=== PATIENT | female | born 1930 | race African-American/Black ===

== ENCOUNTER 2016-06-24 22:54 | Inpatient (IN) | payer OTHER, MEDICARE ==
[~2016-06-24] VITALS: Ht 165.1 cm; Wt 82.9 kg
[~2016-06-24 22:54] MED LIST: APIX2.5 PO; CEPH500; DILTCD240 PO; HYDRA50 PO; LOSA100T PO; VITA-13 PO; VITA500C9 PO
[2016-06-24 22:57] VITALS: BP 110/58; PULSE 59; RESP 16; TEMP 97.9; O2SAT 95
[2016-06-25] VITALS (7 sets, daily range): BP systolic 120–134; BP diastolic 60–80; PULSE 58–66; RESP 12–18; TEMP 97.2–97.8; O2SAT 92–100
[2016-06-25] MEDS ORDERED: HYDR50TA15 PO (05:13)
[2016-06-25] MEDS ORDERED: LOSA100T PO (05:13)
[2016-06-25] MEDS ORDERED: DILT-48 PO (05:13)
[2016-06-25] MEDS ORDERED: DOXY1TAB6 PO (05:13)
[2016-06-25] MEDS ORDERED: CLON0.3T PO (05:13)
[2016-06-25] MEDS ORDERED: METO50TA PO (05:13)
[2016-06-25] MEDS ORDERED: SODIUM CHLORIDE 0.9% FLUSH 5 ML FLUSH IVF PRN (05:30)
[2016-06-25 05:54] LABS: AUTOMATED NEUTROPHIL # 2.7 TH/MM3 (1.8-7.7); BASOPHIL % 0.8 % (0.0-2.0); EOSINOPHIL # 0.1 TH/MM3 (0-0.4); HEMATOCRIT 35.6 % (35.0-46.0); LYMPH % 17.1 % (9.0-44.0); LYMPHOCYTE # 0.6 TH/MM3 (1.0-4.8); MEAN CELL VOLUME 74.4 FL (80.0-100.0); MEAN CORPUSCULAR HGB CONC 33.6 % (32.0-36.0); NEUT % 75.1 % (16.0-70.0); PLATELET COUNT 268 TH/MM3 (150-450); RED BLOOD COUNT 4.79 MIL/MM3 (4.00-5.30); WHITE BLOOD COUNT 3.6 TH/MM3 (4.0-11.0)
[2016-06-25 06:03] LABS: HEMO FLAGS AUTO DIFF
--- NOTE | 2016-06-25 06:26 | PD ---
HPI Chief Complaint: Cardiac Complaint Time Seen by Provider: 04:54 Travel History International Travel<30 days: No Contact w/Intl Traveler<30days: No Traveled to known affect area: No History of Present Illness HPI 84-year-old female arrives to the ER complaining of 2 days lightheadedness. She believes she might have a urinary tract infection. She reports some nausea however has not vomited. She has been spending most of the past 2 days sitting still. She is able to ambulate with a walker however remaining still was seemed prevent any lightheadedness symptoms. Appetite has been normal. PFSH Past Medical History Hx Anticoagulant Therapy: Yes Arthritis: Yes Atrial Fibrillation: Yes Blood Disorders: No Anxiety: Yes (DUE TO HEALTH CONDITION ) Cancer: No Cardiac Catheterization: Yes Cardiovascular Problems: Yes ([place], HTN. PACEMAKER) High Cholesterol: Yes Cerebrovascular Accident: Yes (PT DENIES) Diabetes: No Diminished Hearing: No Endocrine: No Gastrointestinal Disorders: No Genitourinary: Yes (UTI) Hypertension: Yes Immune Disorder: No Musculoskeletal: Yes Neurologic: Yes Psychiatric: No Reproductive: No Respiratory: No Myocardial Infarction: Yes Tetanus Vaccination: > 5 Years Influenza Vaccination: Yes Menopausal: Yes Past Surgical History Gynecologic Surgery: Yes (hysterectomy) Hysterectomy: Yes (Partial) Pacemaker: Yes (2014) Other Surgery: Yes Social History Alcohol Use: No Tobacco Use: No Substance Use: No Allergies-Medications (Allergen,Severity, Reaction): Coded Allergies: No Known Allergies (Verified , 06/25/16) Reported Meds & Prescriptions Reported Meds & Active Scripts Active Reported Doxycycline Hyclate DR (Doxycycline Hyclate) 100 Mg Tab 100 Mg PO BID Losartan (Losartan Potassium) 100 Mg Tab 100 Mg PO DAILY Clonidine (Clonidine HCl) 0.3 Mg Tab 0.3 Mg PO BID Diltiazem ER 24 HR 240 Mg Caper 240 Mg PO DAILY Hydralazine (Hydralazine HCl) 50 Mg Tab 50 Mg PO TID Take with a meal Metoprolol Tartrate 50 Mg Tab 50 Mg PO BID Review of Systems Except as stated in HPI: all other systems reviewed are Neg Physical Exam Narrative GENERAL: 86F, WNWD, pleasant SKIN: Warm and dry. HEAD: Atraumatic. Normocephalic. EYES: Pupils equal and round. No scleral icterus. No injection or drainage. No nystagmus. ENT: No nasal bleeding or discharge. Mucous membranes pink and moist. NECK: Trachea midline. No JVD. CARDIOVASCULAR: Regular rate and rhythm. RESPIRATORY: No accessory muscle use. Clear to auscultation. Breath sounds equal bilaterally. GASTROINTESTINAL: Abdomen soft, non-tender, nondistended. Hepatic and splenic margins not palpable. MUSCULOSKELETAL: Extremities without clubbing, cyanosis, or edema. No obvious deformities. NEUROLOGICAL: AOx3. No focal CN deficit. Moving all extremities normally. PSYCHIATRIC: Appropriate mood and affect; insight and judgment normal. Data Data Last Documented VS Vital Signs Date Time Temp Pulse Resp B/P Pulse Ox O2 Delivery O2 Flow Rate FiO2 06/25/16 04:45 20 99 Room Air 06/25/16 04:19 97.8 60 122/60 VS noted Orders Electrocardiogram (06/25/16 05:22) Basic Metabolic Panel (Bmp) (06/25/16 05:22) Complete Blood Count With Diff (06/25/16 05:22) Urinalysis - C+S If Indicated (06/25/16 05:22) Chest, Single Ap (06/25/16 05:22) Ecg Monitoring (06/25/16 05:22) Iv Access Insert/Monitor (06/25/16 05:22) Oximetry (06/25/16 05:22) Sodium Chloride 0.9% Flush (Ns Flush) (06/25/16 05:30) Urine Culture (06/25/16 06:20) Ceftriaxone Inj (Rocephin Inj) (06/25/16 07:15) Ns (Bolus) Inj (06/25/16 07:30) Labs Laboratory Tests Test 06/25/16 06/25/16 05:30 06:20 White Blood Count 3.6 TH/MM3 Red Blood Count 4.79 MIL/MM3 Hemoglobin 12.0 GM/DL Hematocrit 35.6 % Mean Corpuscular Volume 74.4 FL Mean Corpuscular Hemoglobin 25.0 PG Mean Corpuscular Hemoglobin 33.6 % Concent Red Cell Distribution Width 17.0 % Platelet Count 268 TH/MM3 Mean Platelet Volume 8.6 FL Neutrophils (%) (Auto) 75.1 % Lymphocytes (%) (Auto) 17.1 % Monocytes (%) (Auto) 5.0 % Eosinophils (%) (Auto) 2.0 % Basophils (%) (Auto) 0.8 % Neutrophils # (Auto) 2.7 TH/MM3 Lymphocytes # (Auto) 0.6 TH/MM3 Monocytes # (Auto) 0.2 TH/MM3 Eosinophils # (Auto) 0.1 TH/MM3 Basophils # (Auto) 0.0 TH/MM3 CBC Comment AUTO DIFF Differential Comment AUTO DIFF CONFIRMED Platelet Estimate NORMAL Platelet Morphology Comment NORMAL Ovalocytes 1+ Keratocytes OCC Sodium Level 133 MEQ/L Potassium Level 3.7 MEQ/L Chloride Level 98 MEQ/L Carbon Dioxide Level 23.1 MEQ/L Anion Gap 12 MEQ/L Blood Urea Nitrogen 41 MG/DL Creatinine 2.71 MG/DL Estimat Glomerular Filtration 20 ML/MIN Rate Random Glucose 96 MG/DL Calcium Level 9.6 MG/DL Urine Color YELLOW Urine Turbidity HAZY Urine pH 5.5 Urine Specific [place] 1.015 Urine Protein 30 mg/dL Urine Glucose (UA) NEG mg/dL Urine Ketones NEG mg/dL Urine Occult Blood NEG Urine Nitrite NEG Urine Bilirubin NEG Urine Urobilinogen 2.0 MG/DL Urine Leukocyte Esterase LARGE Urine RBC 9 /hpf Urine WBC 65 /hpf Urine WBC Clumps OCC Urine Squamous Epithelial 13 /hpf Cells Urine Bacteria MANY /hpf Urine Hyaline Casts 3 /lpf Urine Mucus FEW /lpf Microscopic Urinalysis Comment CULTURE INDICATED MDM Medical Decision Making Medical Screen Exam Complete: Yes Emergency Medical Condition: Yes Medical Record Reviewed: Yes Differential Diagnosis uti, electrolyte imbalance, arrhythmia, anemia, infection Narrative Course CBC & BMP Diagram 06/25/16 05:30 UA + for UTI EKG: paced rhythm rate 59 Rocephin ordered. Admission for UTI and kidney injury. Diagnosis Primary Impression: UTI (urinary tract infection) Qualified Code: N39.0 - Urinary tract infection with hematuria, site unspecified Additional Impression: Kidney injury Qualified Code: S37.009A - Kidney injury, unspecified laterality, initial encounter Admitting Information Admitting Physician Requests: Admit Bo Krause MD Jun 25, 2016 06:26
[2016-06-25 06:31] LABS: BICARBONATE 23.1 MEQ/L (21.0-32.0)
--- NOTE | 2016-06-25 06:37 | RADRPT ---
EXAM DATE/TIME: 06/25/2016 05:45 [facility] COMPARISON: CHEST SINGLE AP, March 27, 2015, 16:50. INDICATIONS : Pt having chest palpitations and pain. MEDICAL HISTORY : None. SURGICAL HISTORY : Pacemaker. ENCOUNTER: Initial ACUITY: 1 day PAIN SCORE: 6/10 LOCATION: Bilateral chest FINDINGS: Portable AP view of the chest demonstrates a normal size cardiac silhouette. Single lead left chest w all cardiac pacing device remains present. Lungs are underinflated. No pleural effusion, airspace con solidation, or pneumothorax is visualized. Bones and soft tissues demonstrate no acute finding. CONCLUSION: Underinflated examination without acute abnormality identified. Mckinley Elizalde MD on June 25, 2016 at 6:35 Board Certified Radiologist. This report was verified electronically.
[2016-06-25 06:49] LABS: POTASSIUM 3.7 MEQ/L (3.5-5.1)
[2016-06-25 06:54] LABS: KERATOCYTES OCC (NORMAL); OVALOCYTES 1+ (NORMAL); PLATELET ESTIMATE SMEAR NORMAL (NORMAL); PLATELET MORPHOLOGY NORMAL (NORMAL); SCAN/DIFF AUTO DIFF CONFIRMED
[2016-06-25 06:57] LABS: BACTERIA, URINE MANY /hpf; BLOOD, URINE NEG (NEG); GLUCOSE,URINE NEG (NEG); HYALINE CAST, URINE 3 /lpf (RARE); KETONE, URINE NEG (NEG); MUCUS URINE FEW /lpf (OCC); NITRITE,URINE NEG (NEG); PH, URINE 5.5 (5.0-8.5); SQUAMOUS EPITHELIAL CELL URINE 13 /hpf (0-5); URINE COLOR YELLOW (YELLW/STRAW)
[2016-06-25 07:05] LABS: COMMENT (UR) CULTURE INDICATED; CULTURE IF INDICATED CULTURE INDICATED
[2016-06-25] MEDS ORDERED: cefTRIAXone INJ 1,000 MG in SODIUM CHLORIDE 0.9% INJ 100 ML IV ONE (07:15)
[2016-06-25] MEDS ORDERED: SODIUM CHLORID 0.9% 500 ML INJ 500 ML IV ONE (07:30)
[2016-06-25] MEDS ORDERED: SODIUM CHLORIDE 0.9% FLUSH 5 ML FLUSH FLUSH PRN (08:30)
[2016-06-25] MEDS ORDERED: ACETAMINOPHEN 325 MG TAB PO PRN ×2 (08:30)
[2016-06-25] MEDS ORDERED: NALOXONE HCL 0.4 MG/ML AMP IV PRN (08:30)
[2016-06-25] MEDS: SODIUM CHLOR 0.9% 1000 ML INJ 1,000 ML IV SCH (08:38)
[2016-06-25] MEDS: SODIUM CHLORIDE 0.9% FLUSH 5 ML FLUSH FLUSH SCH ×2 (08:38→20:52)
[2016-06-25] MEDS ORDERED: APIX2.5T PO (08:55)
[2016-06-25] MEDS ORDERED: VITA100036 PO (08:55)
[2016-06-25] MEDS: DOCUSATE SODIUM 100 MG CAP PO SCH ×2 (09:00→20:52)
[2016-06-25] MEDS ORDERED: HEPARIN SODIUM - SQ 10,000 UNITS/ML VIAL SQ SCH (09:00)
--- NOTE | 2016-06-25 09:17 | HHI.HP ---
[facility] Service [facility] Primary Care Physician Unknown Admission Diagnosis UTI, TEMO Diagnoses: Chief Complaint: Dizziness, nausea Travel History International Travel<30 Days: No Contact w/Intl Traveler <30 Da: No Traveled to Known Affected Are: No History of Present Illness The patient is an 86-year-old female with a past medical history of atrial fibrillation status post pacemaker and hypertension who is presenting to the hospital with dizziness, nausea and chest pain. The patient says that her symptoms started 2 days ago where she started to develop a sensation of lightheadedness. She felt like her heart was beating slowly. She says she had a pacemaker placed in 2014. She denied any shortness of breath associated with it. She said yesterday afternoon she developed chest pain. She says the chest pain started in her right arm and radiated to her chest. She described the sensation as a dull kind of pain. She rated it as a 4 out of 10 in severity. The chest pain lasted for a few minutes. She said she had numbness in her fingers during the episode. She said those symptoms have resolved. Patient felt nauseous this morning and she says she has been dry heaving. She has not been eating well lately because she has not had an appetite. She has not been drinking much fluids. She has been experiencing frequent urination. She denies any pain on urination. She denies any fevers. She says she lives alone and has been ambulating with a walker and cane. Review of Systems Constitutional: COMPLAINS OF: Dizziness, Change in appetite Respiratory: DENIES: Shortness of breath Cardiovascular: COMPLAINS OF: Chest pain, Lower Extremity Edema Gastrointestinal: COMPLAINS OF: Nausea, DENIES: Diarrhea, Vomiting Genitourinary: COMPLAINS OF: Urinary frequency Neurologic: COMPLAINS OF: Abnormal gait, Paresthesias, Poor Balance Past Family Social History Past Medical History Hypertension Chronic renal insufficiency Dyslipidemia Atrial fibrillation s/p pacemaker Past Surgical History Hysterectomy Allergies: Coded Allergies: No Known Allergies (Verified , 06/25/16) Active Ordered Medications Current Medications Medications (Trade) Dose Ordered Sig/Bhavna Route Start Time Stop Time Status Last Admin (Cardizem Cd) 240 mg DAILY PO 06/25/16 09:00 Metoprolol Tartrate 50 mg 50 mg BID PO 06/25/16 09:00 (NS 1000 ml Inj) 1,000 ml @ 100 mls/hr Q10H IV 06/25/16 08:23 06/25/16 08:38 (NS Flush) 2 ml UNSCH PRN FLUSH 06/25/16 08:30 (NS Flush) 2 ml BID FLUSH 06/25/16 09:00 06/25/16 08:38 (Tylenol) 650 mg Q4H PRN PO 06/25/16 08:30 (Colace) 100 mg Q12H PO 06/25/16 09:00 (Tylenol) 650 mg Q6H PRN PO 06/25/16 08:30 (Narcan Inj) 0.4 mg UNSCH PRN IV 06/25/16 08:30 Apixaban 2.5 mg 2.5 mg BID PO 06/25/16 10:00 (Rocephin Inj/NS Inj) 100 ml @ 200 mls/hr Q24H IV 06/26/16 08:00 (Vitamin D3) 1,000 units DAILY PO 06/25/16 10:00 Family History Hypertension Social History The patient does not smoke or drink. She lives alone. Physical Exam Vital Signs Vital Signs Date Time Temp Pulse Resp B/P Pulse Ox O2 Delivery O2 Flow Rate FiO2 06/25/16 08:45 97.4 62 12 127/65 100 Room Air 06/25/16 04:45 20 99 Room Air 06/25/16 04:19 97.8 60 14 122/60 97 Room Air 06/24/16 22:57 97.9 59 16 110/58 95 Room Air Physical Exam GENERAL: This is a well-nourished, well-developed patient, in no apparent distress. SKIN: No rashes, ecchymoses or lesions. Cool and dry. HEAD: Atraumatic. Normocephalic. No temporal or scalp tenderness. EYES: Pupils equal round and reactive. Extraocular motions intact. No scleral icterus. No injection or drainage. ENT: Nose without bleeding, purulent drainage or septal hematoma. Throat without erythema, tonsillar hypertrophy or exudate. Uvula midline. Airway patent. NECK: Trachea midline. No JVD or lymphadenopathy. Supple, nontender, no meningeal signs. CARDIOVASCULAR: Regular rate and rhythm, grade 1 systolic murmur appreciated. RESPIRATORY: Clear to auscultation. Breath sounds equal bilaterally. No wheezes , rales, or rhonchi. GASTROINTESTINAL: Abdomen soft, non-tender, nondistended. No hepato-splenomegaly , or palpable masses. No guarding. MUSCULOSKELETAL: Trace bilateral lower extremity edema. No calf tenderness. NEUROLOGICAL: Awake and alert. Cranial nerves II through XII intact. Motor and sensory grossly within normal limits. Five out of 5 muscle strength in all muscle groups. Normal speech. PSYCH: Mood and affect appropriate. Laboratory Laboratory Tests Test 06/25/16 06/25/16 05:30 06:20 White Blood Count 3.6 Red Blood Count 4.79 Hemoglobin 12.0 Hematocrit 35.6 Mean Corpuscular Volume 74.4 Mean Corpuscular Hemoglobin 25.0 Mean Corpuscular Hemoglobin 33.6 Concent Red Cell Distribution Width 17.0 Platelet Count 268 Mean Platelet Volume 8.6 Neutrophils (%) (Auto) 75.1 Lymphocytes (%) (Auto) 17.1 Monocytes (%) (Auto) 5.0 Eosinophils (%) (Auto) 2.0 Basophils (%) (Auto) 0.8 Neutrophils # (Auto) 2.7 Lymphocytes # (Auto) 0.6 Monocytes # (Auto) 0.2 Eosinophils # (Auto) 0.1 Basophils # (Auto) 0.0 CBC Comment AUTO DIFF Differential Comment AUTO DIFF CONFIRMED Platelet Estimate NORMAL Platelet Morphology Comment NORMAL Ovalocytes 1+ Keratocytes OCC Sodium Level 133 Potassium Level 3.7 Chloride Level 98 Carbon Dioxide Level 23.1 Anion Gap 12 Blood Urea Nitrogen 41 Creatinine 2.71 Estimat Glomerular Filtration 20 Rate Random Glucose 96 Calcium Level 9.6 Urine Color YELLOW Urine Turbidity HAZY Urine pH 5.5 Urine Specific [place] 1.015 Urine Protein 30 Urine Glucose (UA) NEG Urine Ketones NEG Urine Occult Blood NEG Urine Nitrite NEG Urine Bilirubin NEG Urine Urobilinogen 2.0 Urine Leukocyte Esterase LARGE Urine RBC 9 Urine WBC 65 Urine WBC Clumps OCC Urine Squamous Epithelial 13 Cells Urine Bacteria MANY Urine Hyaline Casts 3 Urine Mucus FEW Microscopic Urinalysis Comment CULTURE INDICATED Date/Time Procedure Status Source Growth 06/25/16 06:20 Urine Culture Received Urine Random Urine Pending Result Diagram: 06/25/1652906/25/16 0530 Imaging Last Impressions Chest X-Ray 06/25/16 05 Signed Impressions: Service Date/Time: Saturday, June 25, 2016 05:45 - CONCLUSION: Underinflated examination without acute abnormality identified. Mckinley Elizalde MD Assessment and Plan Assessment and Plan Chest pain The patient developed a few minutes of chest pain on the day prior to admission. The pain radiated from her right arm to her chest and she also experienced numbness in her fingers. EKG is paced and without evidence of acute ischemia. Chest x-ray was unremarkable. Possibly secondary to hypertension. - Trend troponins. - Monitor on telemetry. - Pain control and oxygen as needed. UTI The patient complains of urinary frequency. UA is indicative of infection. - Continue ceftriaxone. - Follow urine culture. Lightheadedness/ decreased by mouth intake The patient has not been eating or drinking lately. She has been nauseous. The patient is noted to have leukopenia, maybe secondary to a viral syndrome. - IV fluids. - Encourage by mouth intake. Add ensure to meals. - PT/OT. Acute on chronic kidney injury Creatinine is elevated above baseline. Likely secondary to decreased by mouth intake and UTI. - Treatment as above. - Avoid nephrotoxic agents. Atrial fibrillation Status post pacemaker. Heart rate well controlled at this time. - Continue Cardizem and metoprolol as well as Eliquis. - Monitor on telemetry. Hypertension The patient is on multiple medications. Blood pressure well controlled in the emergency department. - Continue Cardizem and metoprolol. - Hold hydralazine and clonidine as blood pressure is well controlled at this time. - Clonidine as needed. PPx: Eliquis. Code Status Full Discussed Condition With Dr. Pan, pt, nurse. Physician Certification 2 Midnight Certification Type: Admission for Inpatient Services Order for Inpatient Services The services are ordered in accordance with Medicare regulations or non- Medicare payer requirements, as applicable. In the case of services not specified as inpatient-only, they are appropriately provided as inpatient services in accordance with the 2-midnight benchmark. Estimated LOS (days): 2 days is the estimated time the patient will need to remain in the hospital, assuming treatment plan goals are met and no additional complications. Post-Hospital Plan: Not yet determined Honorio Cabezas DO Jun 25, 2016 09:17
[2016-06-25] MEDS ORDERED: cloNIDine HCL 0.2 MG TAB PO PRN (09:30)
[2016-06-25] MEDS: METOPROLOL TARTRATE 50 MG TAB PO SCH ×2 (09:43→20:52)
[2016-06-25] MEDS ORDERED: ONDANSETRON HCL 4 MG/2 ML VIAL IV PUSH PRN (09:45)
[2016-06-25] MEDS: APIXABAN 2.5 MG TABLET PO SCH ×2 (10:04→20:53)
[2016-06-25] MEDS: CHOLECALCIFEROL (VIT D3) 1000 UNIT TAB PO SCH (10:04)
[2016-06-25] MEDS: DILTIAZEM-CD 240 MG CAP ER PO SCH (10:04)
--- NOTE | 2016-06-25 14:46 | EKG ---
Date Performed: 06/25/2016 Time Performed: 05:35:12 PTAGE: 86 years EKG: ELECTRONIC VENTRICULAR PACEMAKER UNDERLYING RHYTHM APPEARS TO BE ATRIAL FIBRILLATION Compar ed to previous tracing the ventricular response to the atrial fibrillation is controlled and the rhyt hm is now paced ABNORMAL RHYTHM ECG PREVIOUS TRACING : 03/28/2015 05.06 DOCTOR: Stacia Lucio Interpretating Date/Time 06/25/2016 14:45:00
--- NOTE | 2016-06-25 15:35 | MB ---
cc: ZULEMA ARAGON BETH A. MD DATE OF CONSULTATION: 06/25/2016 REASON FOR CONSULTATION: Chest pain. HISTORY OF PRESENT ILLNESS Miss Salgado is a pleasant 86-year-old patient of my partner Dr. Aragon. She does have a history of atrial fibrillation with a Biotronik pacemaker implantation and known mild coronary disease by catheterization in December 2012. The patient reports that she had sudden onset of chest discomfort last night, after the onset of some dizziness and nausea. She says that the chest pain started in the left chest and radiated to her left arm. This is noted to be inconsistent with the admission history and physical. She rated the pain as mild and stated that it lasted less than 5 minutes. She also reports that she had some numbness in her fingers. PAST MEDICAL HISTORY: 1. Past medical history significant for atrial fibrillation status post pacemaker 2. hypertension 3. Hyperlipidemia 4. renal insufficiency 5. Mild coronary artery disease. ALLERGIES NO KNOWN DRUG ALLERGIES. FAMILY HISTORY: Positive for hypertension. SOCIAL HISTORY: The patient does not smoke. PHYSICAL EXAMINATION: VITAL SIGNS: The vital signs are 97.4, 68, 18, 121/68. IN GENERAL: She is a well-appearing elderly female who is in no apparent distress. NECK: Her neck is free from jugular venous distention. LUNGS: The lungs are bilaterally clear to auscultation. CARDIOVASCULAR SYSTEM: On the cardiovascular examination she has a harsh systolic murmur, no rubs or gallops were appreciated. ABDOMEN: The abdomen is soft. EXTREMITIES: The extremities are free from edema. RADIOLOGIC: The EKG shows a V-paced rhythm with underlying atrial fibrillation and a controlled rate. LABORATORY FINDINGS Significant for a creatinine of 2.71 and a troponin of 0.29. IMPRESSION Atypical chest pain - the patient does have atypical chest pain and did not have any significant CAD by catheterization in December,. At this point given her presentation I would simply continue with medical management. We can continue to rule her out. I think her elevated creatinine and a urinary tract infection is diagnosed by the primary team. Make further catheterization significantly less desirable. Her primary welder gas automatic Dr. Aragon is on tomorrow and will however make the ultimate decision on this regard. History of atrial fibrillation - I am going to ask for [employer] to come and interrogate her pacemaker as if she has had any episodes of RVR that may have contributed to the indeterminate troponin. Hypertension - the patient does appear quite controlled throughout this hospitalization. Indeterminate troponin - it is noted to be elevated at this point It is also noted that her troponin was as high is a 3.28 in 2012 when she had her heart catheterization. Thus at this point we are going to continue with conservative measures. Meagan Burton /3:02 PM /3:13 PM
--- NOTE | 2016-06-25 19:00 | EC ---
Study Study Date:06/25/2016 STUDY CONCLUSIONS SUMMARY - Left ventricle: The cavity size was normal. Wall thickness was normal. Systolic function was severely reduced. The estimated ejection fraction was in the range of 25% to 30%. Wall motion was normal; there were no regional wall motion abnormalities. - Aortic valve: Valve area: 0.7cm^2(VTI). Valve area: 0.87cm^2 (Vmax). - Mitral valve: Mildly calcified annulus. Mild regurgitation. Valve area by pressure half-time: 2.39cm^2. - Left atrium: The atrium was mildly dilated. - Tricuspid valve: Mild regurgitation. - Pulmonary arteries: PA peak pressure: 49mm Hg (S). If LV function is below 40, please consider prescribing an ACEI or ARB or document rationale for non-use. PROCEDURE DATA STUDY STATUS: Elective. Procedure: Transthoracic echocardiography. Image quality was good. Scanning was performed from the parasternal, apical, and subcostal acoustic windows. Study completion: The patient tolerated the procedure well. Transthoracic echocardiography. M-mode, complete 2D, complete spectral Doppler, and color Doppler. Patient status: Inpatient. CARDIAC ANATOMY LEFT VENTRICLE: The cavity size was normal. Wall thickness was normal. Systolic function was severely reduced. The estimated ejection fraction was in the range of 25% to 30%. Wall motion was normal; there were no regional wall motion abnormalities. AORTIC VALVE: Trileaflet; normal thickness, mildly calcified leaflets. Doppler: Transvalvular velocity was within the normal range. There was no stenosis. No regurgitation. Valve area: 0.7cm^2(VTI). Valve area: 0.87cm^2 (Vmax). Mean gradient: 12mm Hg (S). Peak gradient: 20mm Hg (S). AORTA: Aortic root: The aortic root was normal in size. MITRAL VALVE: Mildly calcified annulus. Doppler: Transvalvular velocity was within the normal range. There was no evidence for stenosis. Mild regurgitation. Valve area by pressure half-time: 2.39cm^2. LEFT ATRIUM: The atrium was mildly dilated. RIGHT VENTRICLE: The cavity size was normal. Wall thickness was normal. PULMONIC VALVE: Doppler: Transvalvular velocity was within the normal range. There was no evidence for stenosis. No regurgitation. TRICUSPID VALVE: Structurally normal valve. Doppler: Transvalvular velocity was within the normal range. Mild regurgitation. PULMONARY ARTERY: The main pulmonary artery was normal-sized. Systolic pressure was within the normal range. RIGHT ATRIUM: The atrium was normal in size. PERICARDIUM: There was no pericardial effusion. SYSTEMIC VEINS: Inferior vena cava: The vessel was normal in size. BASIC MEASUREMENTS ADULT NORMAL Left ventricle LV internal dimension, ED, chordal level, 51.4 mm 43-52 PLAX LV internal dimension, ES, chordal level, *46 mm 23-38 PLAX Fractional shortening, chordal level, PLAX *11 % >29 LV posterior wall thickness, ED 11.3 mm IVS/LVPW ratio, ED 0.85 <1.3 Ventricular septum Septal thickness, ED 9.56 mm Right ventricle RV internal dimension, ED, PLAX 24.9 mm 19-38 BASIC MEASUREMENTS ADULT NORMAL Aorta Root diameter, ED *38 mm 20-37 Left atrium Anterior-posterior dimension, ES *47 mm 19-40 LA/aortic root ratio 1.24 DOPPLER MEASUREMENTS ADULT NORMAL Main pulmonary artery Pressure, S *49 mm Hg =30 Aortic valve Peak velocity, S 222 cm/s Mean velocity, S 160 cm/s VTI, S 47.2 cm Mean gradient, S 12 mm Hg Peak gradient, S 20 mm Hg Valve area, VTI 0.7 cm^2 Valve area, Vmax 0.87 cm^2 Mitral valve Pressure half-time 92 ms Valve area, pressure half-time 2.39 cm^2 Tricuspid valve Regurgitant peak velocity 314 cm/s Peak RV-RA gradient, S 39 mm Hg Maximal regurgitant velocity 314 cm/s Systemic veins Estimated CVP 10 mm Hg Right ventricle RV pressure, S *49 mm Hg <30 LEGEND: Mean values are shown as u=mean value. Asterisk (*) coughlin values outside specified normal range. Prepared and signed by Charity Stein [id number]
[2016-06-26] VITALS (7 sets, daily range): BP systolic 133–160; BP diastolic 64–80; PULSE 59–85; RESP 16–18; TEMP 97.3–98.2; O2SAT 95–99
[2016-06-26] MEDS: SODIUM CHLOR 0.9% 1000 ML INJ 1,000 ML IV SCH ×2 (04:23→21:00)
[2016-06-26 07:38] LABS: AUTOMATED NEUTROPHIL # 1.7 TH/MM3 (1.8-7.7); EOSINOPHIL # 0.2 TH/MM3 (0-0.4); EOSINOPHIL % 5.4 % (0.0-4.0); HEMATOCRIT 32.9 % (35.0-46.0); LYMPH % 23.9 % (9.0-44.0); LYMPHOCYTE # 0.7 TH/MM3 (1.0-4.8); MEAN CELL VOLUME 74.9 FL (80.0-100.0); MEAN CORPUSCULAR HEMOGLOBIN 24.7 PG (27.0-34.0); NEUT % 59.7 % (16.0-70.0); PLATELET COUNT 250 TH/MM3 (150-450); RED BLOOD COUNT 4.39 MIL/MM3 (4.00-5.30); RED CELL DISTRIBUTION WIDTH 16.7 % (11.6-17.2); WHITE BLOOD COUNT 2.9 TH/MM3 (4.0-11.0)
[2016-06-26 07:58] LABS: HEMO FLAGS AUTO DIFF
[2016-06-26 08:08] LABS: BICARBONATE 24.8 MEQ/L (21.0-32.0); POTASSIUM 3.5 MEQ/L (3.5-5.1)
[2016-06-26] MEDS: APIXABAN 2.5 MG TABLET PO SCH ×2 (08:21→20:50)
[2016-06-26] MEDS: DOCUSATE SODIUM 100 MG CAP PO SCH ×2 (08:21→20:49)
[2016-06-26] MEDS: DILTIAZEM-CD 240 MG CAP ER PO SCH (08:21)
[2016-06-26] MEDS: CHOLECALCIFEROL (VIT D3) 1000 UNIT TAB PO SCH (08:21)
[2016-06-26] MEDS: METOPROLOL TARTRATE 50 MG TAB PO SCH ×2 (08:21→20:49)
[2016-06-26] MEDS: cefTRIAXone INJ 1,000 MG in SODIUM CHLORIDE 0.9% INJ 100 ML IV SCH (08:21)
[2016-06-26] MEDS: SODIUM CHLORIDE 0.9% FLUSH 5 ML FLUSH FLUSH SCH ×2 (08:30→20:49)
[2016-06-26 10:31] LABS: ACANTHOCYTES 1+ (NORMAL); OVALOCYTES 1+ (NORMAL); SCAN/DIFF AUTO DIFF CONFIRMED; TARGET CELLS 1+ (NORMAL)
--- NOTE | 2016-06-26 12:43 | PD.CARD.PN ---
Subjective Subjective Remarks The patient denies chest pain, shortness of breath, palpitations or GI symptoms. Her discomfort was essentially a right arm aching lasting for 5 minutes. Telemetry reveals atrial fibrillation with ventricular demand pacemaker. Objective Medications Reviewed Vital Signs / I&O Vital Signs Date Time Temp Pulse Resp B/P Pulse Ox O2 Delivery O2 Flow Rate FiO2 06/26/16 08:04 97.3 60 16 160/78 96 06/26/16 04:00 97.7 60 17 152/75 98 06/26/16 00:00 97.5 60 18 133/64 96 06/25/16 20:00 97.2 66 18 134/65 92 06/25/16 19:38 59 06/25/16 18:00 59 16 130/80 98 06/25/16 14:00 59 18 120/70 99 Room Air I/O 06/25/16 06/25/16 06/25/16 06/26/16 06/26/16 06/26/16 07:00 15:00 23:00 07:00 15:00 23:00 Intake Total 512 ml 598 ml Balance 512 ml 598 ml Intake Oral 100 ml 100 ml IV Total 412 ml 498 ml # Voids 1 2 2 # Bowel Movements 0 0 Physical Exam GENERAL: Well-nourished, well-developed patient in no apparent distress. SKIN: Warm and dry. NECK: JVD normal - less than or equal to 5 cm H20. CARDIOVASCULAR: Regular rate and rhythm without gallops, or rubs. 2/6 early peaking systolic ejection murmur at the base. RESPIRATORY: Normal breath sounds - equal bilaterally. No accessory muscle use. No wheezes, rales or rubs. PERIPHERY: No cyanosis, or edema. Laboratory Laboratory Tests Test 06/25/16 06/26/16 06/26/16 15:39 00:05 06:55 Troponin I 0.34 NG/ML 0.37 NG/ML White Blood Count 2.9 TH/MM3 Red Blood Count 4.39 MIL/MM3 Hemoglobin 10.9 GM/DL Hematocrit 32.9 % Mean Corpuscular Volume 74.9 FL Mean Corpuscular Hemoglobin 24.7 PG Mean Corpuscular Hemoglobin 33.0 % Concent Red Cell Distribution Width 16.7 % Platelet Count 250 TH/MM3 Mean Platelet Volume 8.1 FL Neutrophils (%) (Auto) 59.7 % Lymphocytes (%) (Auto) 23.9 % Monocytes (%) (Auto) 10.0 % Eosinophils (%) (Auto) 5.4 % Basophils (%) (Auto) 1.0 % Neutrophils # (Auto) 1.7 TH/MM3 Lymphocytes # (Auto) 0.7 TH/MM3 Monocytes # (Auto) 0.3 TH/MM3 Eosinophils # (Auto) 0.2 TH/MM3 Basophils # (Auto) 0.0 TH/MM3 CBC Comment AUTO DIFF Differential Comment AUTO DIFF CONFIRMED Target Cells 1+ Ovalocytes 1+ Acanthocytes 1+ Sodium Level 140 MEQ/L Potassium Level 3.5 MEQ/L Chloride Level 107 MEQ/L Carbon Dioxide Level 24.8 MEQ/L Anion Gap 8 MEQ/L Blood Urea Nitrogen 37 MG/DL Creatinine 2.09 MG/DL Estimat Glomerular Filtration 27 ML/MIN Rate Random Glucose 102 MG/DL Calcium Level 9.1 MG/DL Imaging Last 48 hours Impressions Chest X-Ray 06/25/16 0522 Signed Impressions: Service Date/Time: Saturday, June 25, 2016 05:45 - CONCLUSION: Underinflated examination without acute abnormality identified. Mckinley Elizalde MD Assessment and Plan Assessment and Plan Problems: Atypical arm pain Diffuse left ventricular dysfunction/cardiomyopathy Mild to moderate aortic stenosis Atrial fibrillation Recommendations: The patient had normal coronary arteries 3 years ago with low normal LV function. She could have a cardiomyopathy because of right ventricular pacing. I would continue her present medical regimen. I will consult on Tuesday for his input as she may benefit from biventricular pacing or change in lead. Jaylen Aragon MD Jun 26, 2016 12:43
[2016-06-26] MEDS ORDERED: POTASSIUM CHLORIDE 25 MEQ EFFERVESCENT TAB PO ONE (12:45)
[2016-06-26] MEDS: hydrALAZINE HCL 50 MG TAB PO SCH ×2 (12:54→17:51)
--- NOTE | 2016-06-26 14:25 | HHI.PR ---
Subjective Remarks The patient was resting comfortably in bed. She had no acute complaints. She says she talked with her certified marine mechanic earlier. Objective Vitals Vital Signs Date Time Temp Pulse Resp B/P Pulse Ox O2 Delivery O2 Flow Rate FiO2 06/26/16 12:00 97.6 60 18 153/80 98 06/26/16 08:04 97.3 60 16 160/78 96 06/26/16 08:00 85 06/26/16 04:00 97.7 60 17 152/75 98 06/26/16 00:00 97.5 60 18 133/64 96 06/25/16 20:00 97.2 66 18 134/65 92 06/25/16 19:38 59 06/25/16 18:00 59 16 130/80 98 I/O 06/25/16 06/25/16 06/25/16 06/26/16 06/26/16 06/26/16 07:00 15:00 23:00 07:00 15:00 23:00 Intake Total 512 ml 598 ml Balance 512 ml 598 ml Intake Oral 100 ml 100 ml IV Total 412 ml 498 ml # Voids 1 2 2 # Bowel Movements 0 0 Result Diagram: 06/26/16 0655 06/26/16 0655 Imaging Last Impressions Chest X-Ray 06/25/16 05 Signed Impressions: Service Date/Time: Saturday, June 25, 2016 05:45 - CONCLUSION: Underinflated examination without acute abnormality identified. Mckinley Elizalde MD Objective Remarks GENERAL: This is a well-nourished, well-developed patient, in no apparent distress. SKIN: No rashes, ecchymoses or lesions. Cool and dry. HEAD: Atraumatic. Normocephalic. No temporal or scalp tenderness. EYES: Pupils equal round and reactive. Extraocular motions intact. No scleral icterus. No injection or drainage. ENT: Nose without bleeding, purulent drainage or septal hematoma. Throat without erythema, tonsillar hypertrophy or exudate. Uvula midline. Airway patent. NECK: Trachea midline. No JVD or lymphadenopathy. Supple, nontender, no meningeal signs. CARDIOVASCULAR: Regular rate and rhythm, grade 1 systolic murmur appreciated. RESPIRATORY: Clear to auscultation. Breath sounds equal bilaterally. No wheezes , rales, or rhonchi. GASTROINTESTINAL: Abdomen soft, non-tender, nondistended. No hepato-splenomegaly , or palpable masses. No guarding. MUSCULOSKELETAL: Trace bilateral lower extremity edema. No calf tenderness. NEUROLOGICAL: Awake and alert. Cranial nerves II through XII intact. Motor and sensory grossly within normal limits. Five out of 5 muscle strength in all muscle groups. Normal speech. PSYCH: Slightly flattened affect. Medications and IVs Current Medications Medications (Trade) Dose Ordered Sig/Bhavna Route Start Time Stop Time Status Last Admin (Cardizem Cd) 240 mg DAILY PO 06/25/16 09:00 06/26/16 08:21 Metoprolol Tartrate 50 mg 50 mg BID PO 06/25/16 09:00 06/26/16 08:21 (NS 1000 ml Inj) 1,000 ml @ 100 mls/hr Q10H IV 06/25/16 08:23 06/26/16 04:23 (NS Flush) 2 ml UNSCH PRN FLUSH 06/25/16 08:30 (NS Flush) 2 ml BID FLUSH 06/25/16 09:00 06/26/16 08:30 (Tylenol) 650 mg Q4H PRN PO 06/25/16 08:30 06/25/16 09:43 (Colace) 100 mg Q12H PO 06/25/16 09:00 06/26/16 08:21 (Tylenol) 650 mg Q6H PRN PO 06/25/16 08:30 (Narcan Inj) 0.4 mg UNSCH PRN IV 06/25/16 08:30 Apixaban 2.5 mg 2.5 mg BID PO 06/25/16 10:00 06/26/16 08:21 (Rocephin Inj/NS Inj) 100 ml @ 200 mls/hr Q24H IV 06/26/16 08:00 06/26/16 08:21 (Vitamin D3) 1,000 units DAILY PO 06/25/16 10:00 06/26/16 08:21 (Catapres) 0.2 mg Q6H PRN PO 06/25/16 09:30 (Zofran Inj) 4 mg Q8HR PRN IV PUSH 06/25/16 09:45 (Apresoline) 50 mg TID PO 06/26/16 13:00 06/26/16 12:54 A/P Assessment and Plan Chest pain The patient developed a few minutes of chest pain on the day prior to admission. The pain radiated from her right arm to her chest and she also experienced numbness in her fingers. EKG is paced and without evidence of acute ischemia. Chest x-ray was unremarkable. Possibly secondary to hypertension. Appreciate cardiology consultation. - Trend troponins. Latest value was 0.37. - Monitor on telemetry. - Pain control and oxygen as needed. UTI The patient complains of urinary frequency. Urine culture growing GNR. - Continue ceftriaxone. - Follow urine culture. Lightheadedness/ decreased by mouth intake The patient has not been eating or drinking lately. She has been nauseous. The patient is noted to have leukopenia, may be secondary to a viral syndrome. - IV fluids. - Encourage by mouth intake. Add ensure to meals. - PT/OT. - pacemaker to be interrogated. Acute on chronic kidney injury Creatinine was elevated above baseline. Likely secondary to decreased by mouth intake and UTI. Improved with fluids. - Treatment as above. - Avoid nephrotoxic agents. Atrial fibrillation Status post pacemaker. Heart rate well controlled at this time. - Continue Cardizem and metoprolol as well as Eliquis. - Monitor on telemetry. Hypertension The patient is on multiple medications. Blood pressure well controlled in the emergency department. - Continue Cardizem, hydralazine and metoprolol. - Hold standing clonidine. - Clonidine as needed. PPx: Eliquis. Discharge Planning Awaiting clinical improvement. Honorio Cabezas DO Jun 26, 2016 14:25
[2016-06-27] VITALS (7 sets, daily range): BP systolic 119–200; BP diastolic 57–95; PULSE 59–67; RESP 18–20; TEMP 97.3–97.8; O2SAT 95–100
[2016-06-27] MEDS: SODIUM CHLOR 0.9% 1000 ML INJ 1,000 ML IV SCH (00:23)
[2016-06-27] MEDS ORDERED: ENALAPRILAT 1.25 MG/ML VIAL IV PUSH PRN (08:15)
[2016-06-27] MEDS: METOPROLOL TARTRATE 50 MG TAB PO SCH ×2 (08:49→20:56)
[2016-06-27] MEDS: hydrALAZINE HCL 50 MG TAB PO SCH ×3 (08:49→18:00)
[2016-06-27] MEDS: DOCUSATE SODIUM 100 MG CAP PO SCH ×2 (08:49→20:56)
[2016-06-27] MEDS: APIXABAN 2.5 MG TABLET PO SCH ×2 (08:49→20:56)
[2016-06-27] MEDS: cefTRIAXone INJ 1,000 MG in SODIUM CHLORIDE 0.9% INJ 100 ML IV SCH (08:50)
[2016-06-27] MEDS: DILTIAZEM-CD 240 MG CAP ER PO SCH (08:50)
[2016-06-27] MEDS: CHOLECALCIFEROL (VIT D3) 1000 UNIT TAB PO SCH (08:50)
[2016-06-27] MEDS: SODIUM CHLORIDE 0.9% FLUSH 5 ML FLUSH FLUSH SCH ×2 (08:51→20:57)
[2016-06-27] MEDS ORDERED: cloNIDine HCL 0.3 MG TAB PO SCH (09:00)
[2016-06-27 09:38] LABS: HEMATOCRIT 35.3 % (35.0-46.0); MEAN CELL VOLUME 75.1 FL (80.0-100.0); MEAN CORPUSCULAR HEMOGLOBIN 25.1 PG (27.0-34.0); MEAN CORPUSCULAR HGB CONC 33.4 % (32.0-36.0); PLATELET COUNT 276 TH/MM3 (150-450); RED CELL DISTRIBUTION WIDTH 16.8 % (11.6-17.2); REVIEW FLAG FINAL; WHITE BLOOD COUNT 3.6 TH/MM3 (4.0-11.0)
--- NOTE | 2016-06-27 10:06 | PD.CARD.PN ---
Subjective Subjective Remarks The patient denies chest pain, shortness of breath, GI symptoms, bleeding. Telemetry reveals atrial fibrillation with ventricular demand pacemaker. Objective Medications Reviewed Vital Signs / I&O Vital Signs Date Time Temp Pulse Resp B/P Pulse Ox O2 Delivery O2 Flow Rate FiO2 06/27/16 08:00 97.4 60 20 200/95 99 06/27/16 04:00 97.8 67 18 175/85 95 06/27/16 00:00 97.6 60 18 157/81 97 06/26/16 20:00 59 06/26/16 20:00 98.0 61 18 145/70 99 06/26/16 16:00 98.2 63 16 152/80 95 06/26/16 12:00 97.6 60 18 153/80 98 I/O 06/26/16 06/26/16 06/26/16 06/27/16 06/27/16 06/27/16 07:00 15:00 23:00 07:00 15:00 23:00 Intake Total 598 ml 1160 ml 1263 ml 981 ml Balance 598 ml 1160 ml 1263 ml 981 ml Intake Oral 100 ml 360 ml 90 ml 360 ml IV Total 498 ml 800 ml 1173 ml 621 ml # Voids 2 4 1 6 # Bowel Movements 0 1 Physical Exam GENERAL: Well-nourished, well-developed patient in no apparent distress. SKIN: Warm and dry. NECK: JVD normal - less than or equal to 5 cm H20. CARDIOVASCULAR: Regular rate and rhythm without gallops, or rubs. 2/6 early peaking systolic ejection murmur at the base. RESPIRATORY: Normal breath sounds - equal bilaterally. No accessory muscle use. No wheezes, rales or rubs. PERIPHERY: No cyanosis, or edema. Laboratory Laboratory Tests Test 06/26/16 06/27/16 13:05 08:52 Troponin I 0.40 NG/ML White Blood Count 3.6 TH/MM3 Red Blood Count 4.70 MIL/MM3 Hemoglobin 11.8 GM/DL Hematocrit 35.3 % Mean Corpuscular Volume 75.1 FL Mean Corpuscular Hemoglobin 25.1 PG Mean Corpuscular Hemoglobin 33.4 % Concent Red Cell Distribution Width 16.8 % Platelet Count 276 TH/MM3 Mean Platelet Volume 8.1 FL Assessment and Plan Assessment and Plan Problems: Atypical arm pain Mildly elevated but flat troponinnonspecific. Diffuse left ventricular dysfunction/cardiomyopathy Mild to moderate aortic stenosis Atrial fibrillation Recommendations: The patient had normal coronary arteries 3 years ago with low normal LV function. She could have a cardiomyopathy because of right ventricular pacing. I would continue her present medical regimen. I will consult on Tuesday for his input as she may benefit from biventricular pacing or change in lead. I will hold off on ENEDELIA inhibitor as given the patient's chronic kidney disease. All questions answered. Jaylen Aragon MD Jun 27, 2016 10:06
[2016-06-27 10:16] LABS: BICARBONATE 23.1 MEQ/L (21.0-32.0)
[2016-06-27 10:19] LABS: POTASSIUM 4.3 MEQ/L (3.5-5.1)
--- NOTE | 2016-06-27 12:15 | HHI.PR ---
Subjective Remarks The patient felt like she had a lot of weakness in her lower extremities. She said she had a hard time walking. She was anxious last night and felt her pulse was too slow. Discussed with nursing. Objective Vitals Vital Signs Date Time Temp Pulse Resp B/P Pulse Ox O2 Delivery O2 Flow Rate FiO2 06/27/16 08:00 60 06/27/16 08:00 97.4 60 20 200/95 99 06/27/16 04:00 97.8 67 18 175/85 95 06/27/16 00:00 97.6 60 18 157/81 97 06/26/16 20:00 59 06/26/16 20:00 98.0 61 18 145/70 99 06/26/16 16:00 98.2 63 16 152/80 95 I/O 06/26/16 06/26/16 06/26/16 06/27/16 06/27/16 06/27/16 07:00 15:00 23:00 07:00 15:00 23:00 Intake Total 598 ml 1160 ml 1263 ml 981 ml Balance 598 ml 1160 ml 1263 ml 981 ml Intake Oral 100 ml 360 ml 90 ml 360 ml IV Total 498 ml 800 ml 1173 ml 621 ml # Voids 2 4 1 6 # Bowel Movements 0 1 Result Diagram: 06/27/16 0852 06/27/16 0852 Imaging Last Impressions Chest X-Ray 06/25/16521 Signed Impressions: Service Date/Time: Saturday, June 25, 2016 05:45 - CONCLUSION: Underinflated examination without acute abnormality identified. Mckinley Elizalde MD Objective Remarks GENERAL: This is a well-nourished, well-developed patient, in no apparent distress. SKIN: No rashes, ecchymoses or lesions. Cool and dry. HEAD: Atraumatic. Normocephalic. No temporal or scalp tenderness. EYES: Pupils equal round and reactive. Extraocular motions intact. No scleral icterus. No injection or drainage. ENT: Nose without bleeding, purulent drainage or septal hematoma. Throat without erythema, tonsillar hypertrophy or exudate. Uvula midline. Airway patent. NECK: Trachea midline. No JVD or lymphadenopathy. Supple, nontender, no meningeal signs. CARDIOVASCULAR: Regular rate and rhythm, grade 1 systolic murmur appreciated. RESPIRATORY: Clear to auscultation. Breath sounds equal bilaterally. No wheezes , rales, or rhonchi. GASTROINTESTINAL: Abdomen soft, non-tender, nondistended. No hepato-splenomegaly , or palpable masses. No guarding. MUSCULOSKELETAL: Trace bilateral lower extremity edema. No calf tenderness. NEUROLOGICAL: Awake and alert. Cranial nerves II through XII intact. Motor and sensory grossly within normal limits. 3/5 strength in the lower extremities, 4/ 5 in the upper extremities. PSYCH: Slightly flattened affect. Medications and IVs Current Medications Medications (Trade) Dose Ordered Sig/Bhavna Route Start Time Stop Time Status Last Admin (Cardizem Cd) 240 mg DAILY PO 06/25/16 09:00 06/27/16 08:50 Metoprolol Tartrate 50 mg 50 mg BID PO 06/25/16 09:00 06/27/16 08:49 (NS 1000 ml Inj) 1,000 ml @ 100 mls/hr Q10H IV 06/25/16 08:23 06/26/16 21:00 (NS Flush) 2 ml UNSCH PRN FLUSH 06/25/16 08:30 (NS Flush) 2 ml BID FLUSH 06/25/16 09:00 06/27/16 08:51 (Tylenol) 650 mg Q4H PRN PO 06/25/16 08:30 06/25/16 09:43 (Colace) 100 mg Q12H PO 06/25/16 09:00 06/27/16 08:49 (Tylenol) 650 mg Q6H PRN PO 06/25/16 08:30 (Narcan Inj) 0.4 mg UNSCH PRN IV 06/25/16 08:30 Apixaban 2.5 mg 2.5 mg BID PO 06/25/16 10:00 06/27/16 08:49 (Rocephin Inj/NS Inj) 100 ml @ 200 mls/hr Q24H IV 06/26/16 08:00 06/27/16 08:50 (Vitamin D3) 1,000 units DAILY PO 06/25/16 10:00 06/27/16 08:50 (Zofran Inj) 4 mg Q8HR PRN IV PUSH 06/25/16 09:45 (Apresoline) 50 mg TID PO 06/26/16 13:00 06/27/16 08:49 (Catapres) 0.3 mg BID PO 06/27/16 09:00 06/27/16 08:53 (Vasotec Inj) 1.25 mg Q6H PRN IV PUSH 06/27/16 08:15 A/P Assessment and Plan Chest pain The patient developed a few minutes of chest pain on the day prior to admission. The pain radiated from her right arm to her chest and she also experienced numbness in her fingers. EKG is paced and without evidence of acute ischemia. Chest x-ray was unremarkable. Possibly secondary to hypertension. Appreciate cardiology consultation. - Trend troponins. Latest value was 0.43. Will likely be medically managed per cardiology. - Monitor on telemetry. - continue cardiac regimen. - Pain control and oxygen as needed. - repeat EKG. LE weakness The pt said her LEs have been weak since 06/26. Per nursing she is dragging her left leg when ambulating. Bilateral LE weakness noted on exam. No pain or paresthesias in the legs or back. She is on Eliquis for CVA prevention. - check a CT brain. - TSH, B12, folate levels pending. - PT/OT. UTI The patient complains of urinary frequency. Urine culture growing GNR. - Continue ceftriaxone. - Follow urine culture. Lightheadedness/ decreased by mouth intake The patient has not been eating or drinking lately. She has been nauseous. The patient is noted to have leukopenia, may be secondary to a viral syndrome. - IV fluids. - Encourage by mouth intake. Add ensure to meals. - PT/OT. - pacemaker to be interrogated. Acute on chronic kidney injury Creatinine was elevated above baseline. Likely secondary to decreased by mouth intake and UTI. Improved with fluids. - Treatment as above. - Avoid nephrotoxic agents. Atrial fibrillation Status post pacemaker. Heart rate well controlled at this time. - Continue Cardizem and metoprolol as well as Eliquis. - Monitor on telemetry. - Dr. Lauren to evaluate for possible biventricular pacer in AM. Hypertension The patient is on multiple medications. Blood pressure fluctuates widely. - Continue Cardizem, hydralazine and metoprolol. Resume Clonidine at lower dose. - Vasotec as needed. PPx: Eliquis. Discharge Planning Awaiting clinical improvement. Honorio Cabezas DO Jun 27, 2016 12:15
--- NOTE | 2016-06-27 12:19 | EKG ---
Date Performed: 06/25/2016 Time Performed: 15:53:03 PTAGE: 86 years EKG: ELECTRONIC VENTRICULAR PACEMAKER Since previous tracing, no significant change noted ABNORM AL RHYTHM ECG PREVIOUS TRACING : 06/25/2016 05.35 DOCTOR: Hao Whitney Interpretating Date/Time 06/27/2016 12:18:13
--- NOTE | 2016-06-27 14:09 | RADRPT ---
EXAM DATE/TIME: 06/27/2016 13:57 [facility] COMPARISON: CT BRAIN W/O CONTRAST, February 07, 2015, 14:31. INDICATIONS : Altered mental status. Left lower extremity weakness. RADIATION DOSE: 44.55 CTDIvol (mGy) MEDICAL HISTORY : Cerebrovascular disease. Cardiovascular disease Hypertension. SURGICAL HISTORY : Hysterectomy. ENCOUNTER: Initial ACUITY: 1 day PAIN SCALE: 0/10 LOCATION: cranial TECHNIQUE: Multiple contiguous axial images were obtained of the head. Using automated exposure control and adj ustment of the mA and/or kV according to patient size, radiation dose was kept as low as reasonably a chievable to obtain optimal diagnostic quality images. FINDINGS: CEREBRUM: Scattered areas of low attenuation throughout the white matter. The ventricles are normal for age. N o evidence of midline shift, mass lesion, hemorrhage or acute infarction. No extra-axial fluid colle ctions are seen. POSTERIOR FOSSA: The cerebellum and brainstem are intact. The 4th ventricle is midline. The cerebellopontine angle i s unremarkable. EXTRACRANIAL: The visualized portion of the orbits is intact. SKULL: The calvaria is intact. No evidence of skull fracture. CONCLUSION: 1. Chronic ischemic small vessel vasculopathy, more prominent on current study. Nonemergent MRI may b e warranted. 2. No acute intracranial abnormality. Niel Jimenez MD on June 27, 2016 at 14:07 Board Certified Radiologist. This report was verified electronically.
[2016-06-27] MEDS: cloNIDine HCL 0.1 MG TAB PO SCH (20:56)
[2016-06-28] VITALS (9 sets, daily range): BP systolic 141–169; BP diastolic 67–109; PULSE 58–72; RESP 16–18; TEMP 97.2–97.9; O2SAT 97–99
[2016-06-28 07:08] LABS: MEAN CELL VOLUME 74.7 FL (80.0-100.0); MEAN CORPUSCULAR HEMOGLOBIN 25.1 PG (27.0-34.0); MEAN CORPUSCULAR HGB CONC 33.6 % (32.0-36.0); PLATELET COUNT 238 TH/MM3 (150-450); RED BLOOD COUNT 4.14 MIL/MM3 (4.00-5.30); WHITE BLOOD COUNT 2.8 TH/MM3 (4.0-11.0)
[2016-06-28 07:16] LABS: REVIEW FLAG FINAL
[2016-06-28 07:28] LABS: BICARBONATE 23.6 MEQ/L (21.0-32.0); MAGNESIUM 1.9 MG/DL (1.5-2.5); POTASSIUM 3.7 MEQ/L (3.5-5.1)
--- NOTE | 2016-06-28 07:30 | PD.CARD.PN ---
Subjective Subjective Remarks The patient denies chest pain, shortness of breath, palpitations, GI symptoms. Telemetry reveals atrial fibrillation with ventricular demand pacemaker. Objective Medications Reviewed Vital Signs / I&O Vital Signs Date Time Temp Pulse Resp B/P Pulse Ox O2 Delivery O2 Flow Rate FiO2 06/28/16 04:00 97.9 60 18 143/67 99 06/28/16 00:00 97.4 60 18 159/82 99 06/27/16 20:12 59 06/27/16 20:00 97.5 60 18 157/76 99 06/27/16 16:00 97.3 60 20 119/57 100 06/27/16 12:00 97.6 60 20 128/67 100 06/27/16 08:00 60 06/27/16 08:00 97.4 60 20 200/95 99 I/O 06/27/16 06/27/16 06/27/16 06/28/16 06/28/16 06/28/16 07:00 15:00 23:00 07:00 15:00 23:00 Intake Total 981 ml 1280 ml 435 ml 910 ml Balance 981 ml 1280 ml 435 ml 910 ml Intake Oral 360 ml 480 ml 435 ml 120 ml IV Total 621 ml 800 ml 790 ml # Voids 6 2 1 2 # Bowel Movements 1 0 Physical Exam GENERAL: Well-nourished, well-developed patient in no apparent distress. SKIN: Warm and dry. NECK: JVD normal - less than or equal to 5 cm H20. CARDIOVASCULAR: Regular rate and rhythm without gallops, or rubs. 2/6 early peaking systolic ejection murmur at the base. RESPIRATORY: Normal breath sounds - equal bilaterally. No accessory muscle use. No wheezes, rales or rubs. PERIPHERY: No cyanosis, or edema. Laboratory Laboratory Tests Test 06/27/16 06/27/16 06/28/16 08:52 12:37 06:10 White Blood Count 3.6 TH/MM3 2.8 TH/MM3 Red Blood Count 4.70 MIL/MM3 4.14 MIL/MM3 Hemoglobin 11.8 GM/DL 10.4 GM/DL Hematocrit 35.3 % 31.0 % Mean Corpuscular Volume 75.1 FL 74.7 FL Mean Corpuscular Hemoglobin 25.1 PG 25.1 PG Mean Corpuscular Hemoglobin 33.4 % 33.6 % Concent Red Cell Distribution Width 16.8 % 17.0 % Platelet Count 276 TH/MM3 238 TH/MM3 Mean Platelet Volume 8.1 FL 8.7 FL Sodium Level 139 MEQ/L 141 MEQ/L Potassium Level 4.3 MEQ/L 3.7 MEQ/L Chloride Level 108 MEQ/L 110 MEQ/L Carbon Dioxide Level 23.1 MEQ/L 23.6 MEQ/L Anion Gap 8 MEQ/L 7 MEQ/L Blood Urea Nitrogen 30 MG/DL 27 MG/DL Creatinine 1.60 MG/DL 1.48 MG/DL Estimat Glomerular Filtration 37 ML/MIN 40 ML/MIN Rate Random Glucose 132 MG/DL 86 MG/DL Calcium Level 9.2 MG/DL 8.9 MG/DL Magnesium Level 2.0 MG/DL 1.9 MG/DL Troponin I 0.43 NG/ML 0.38 NG/ML Vitamin B12 Level 703 PG/ML Folate 15.7 NG/ML Thyroid Stimulating Hormone 2.280 uIU/ML 3rd Gen Assessment and Plan Assessment and Plan Problems: Atypical arm pain Mildly elevated but flat troponinnonspecific. Diffuse left ventricular dysfunction/cardiomyopathy Mild to moderate aortic stenosis Atrial fibrillation Leukopenia/anemia Recommendations: The patient had normal coronary arteries 3 years ago with low normal LV function. She could have a cardiomyopathy because of right ventricular pacing. I would continue her present medical regimen. I will consult today for his input as she may benefit from biventricular pacing or change in lead. I will hold off on ENEDELIA inhibitor as given the patient's chronic kidney disease. I will leave further cardiac management to him. Anemia/leukopenia per primary service. All questions answered. Jaylen Aragon MD Jun 28, 2016 07:30
[2016-06-28] MEDS: cefTRIAXone INJ 1,000 MG in SODIUM CHLORIDE 0.9% INJ 100 ML IV SCH (08:58)
[2016-06-28] MEDS: DOCUSATE SODIUM 100 MG CAP PO SCH ×2 (08:58→20:52)
[2016-06-28] MEDS: DILTIAZEM-CD 240 MG CAP ER PO SCH (08:58)
[2016-06-28] MEDS: APIXABAN 2.5 MG TABLET PO SCH (08:58)
[2016-06-28] MEDS: CHOLECALCIFEROL (VIT D3) 1000 UNIT TAB PO SCH (08:58)
[2016-06-28] MEDS: hydrALAZINE HCL 50 MG TAB PO SCH ×3 (08:58→17:26)
[2016-06-28] MEDS: METOPROLOL TARTRATE 50 MG TAB PO SCH ×2 (08:58→20:52)
[2016-06-28] MEDS: cloNIDine HCL 0.1 MG TAB PO SCH ×4 (08:59→20:52)
[2016-06-28] MEDS: SODIUM CHLOR 0.9% 1000 ML INJ 1,000 ML IV SCH ×2 (09:03→16:23)
[2016-06-28] MEDS: SODIUM CHLORIDE 0.9% FLUSH 5 ML FLUSH FLUSH SCH ×2 (09:04→20:52)
[2016-06-28] MEDS ORDERED: POVIDONE IODINE 5% (ANTISEPSIS KIT) 4 APPLICATIONS EACH NARE SCH (12:45)
[2016-06-28] MEDS ORDERED: CHLORHEXIDINE GLUCONATE 2 % 1 PACK (2 CLOTHS) TOP SCH (12:45)
[2016-06-28] MEDS ORDERED: MUPIROCIN 2% OINT 1 APPLIC/GM SYR NASAL SCH (12:45)
[2016-06-28] MEDS: RAMIPRIL 5 MG CAP PO SCH (12:52)
--- NOTE | 2016-06-28 13:02 | MB ---
cc: JENNIFER WEN MD, HANSCY M.D. DATE OF CONSULTATION: 06/28/2016 REASON FOR CONSULTATION Heart failure, upgrade of pacemaker to biventricular pacer defibrillator. Mrs. Salgado is an 86-year-old -[place] female with a history of AV block, atrial fibrillation on anticoagulation, RV pacing, who developed heart failure. This is not the first episode. She was admitted due to chest pain and shortness of breath. Troponin was flat. I was consulted for evaluation and management. The chart was reviewed. The patient was evaluated. ALLERGIES None. SOCIAL HISTORY Negative for smoking and drinking. FAMILY HISTORY Noncontributory to her current medical condition. MEDICATIONS Currently Mrs. Salgado is on: 1. Rocephin q.24h. 2. Eliquis. 3. Clonidine. 4. Cardizem CD 240 mg a day. 5. Enalapril p.r.n. 6. Apresoline. 7. Metoprolol 50 mg twice a day. REVIEW OF SYSTEMS Currently she refers shortness of breath with minimal activity. No chest pain, no chest discomfort. PHYSICAL EXAMINATION GENERAL: Alert, fully oriented. VITAL SIGNS: Blood pressure 160/89, pulse 62, respiratory rate 16. LUNGS: Ventilated. CARDIOVASCULAR: S1, S2. There is a discrete systolic ejection murmur. ABDOMEN: Soft. No mass. No bruit. EXTREMITIES: No edema. EKG Electrocardiogram: Atrial fibrillation, V pacing. LABORATORY Potassium 3.7, creatinine 1.48. Troponin 0.38. Hemoglobin 10.4, white blood cell count 2.8. ASSESSMENT AND RECOMMENDATION Mrs. Salgado has heart failure. She has atrial fibrillation. She has RV pacing. She has a previous permanent pacemaker that was implanted in 2012. She had left heart catheterization at that time that indicated no significant coronary artery disease. In previous hospitalizations troponin is always elevated. Also, has elevation of her creatinine. She has an ejection of 25%. This is basically not an ischemic event. She has heart failure. She is on optimal medical treatment. ENEDELIA inhibitor was held because of the creatinine. At this point my recommendation is control the blood pressure and upgrade the permanent pacemaker to a biventricular pacer defibrillator for sudden prevention and resynchronization therapy. The risks, the nature and the benefit of the procedure were clearly stated to her. The risks include pneumothorax, cardiac perforation, stroke and even . She understood and agreed to proceed. The procedure will be performed during hospitalization. MD CLAYTON Sanabria/BT /12:32 PM /12:40 PM
[2016-06-28 14:11] LABS: APTT (PATIENT) 28.7 SEC (24.3-30.1); INTERNATIONAL NORMALIZED RATIO 1.1 RATIO
--- NOTE | 2016-06-28 15:50 | HHI.PR ---
Subjective Remarks doing well , no cp , no palpitatioin , no sob no f/c Objective Vitals Vital Signs Date Time Temp Pulse Resp B/P Pulse Ox O2 Delivery O2 Flow Rate FiO2 06/28/16 11:59 97.2 62 16 160/89 98 06/28/16 08:00 97.8 62 16 169/109 98 06/28/16 07:59 61 06/28/16 04:00 97.9 60 18 143/67 99 06/28/16 00:00 97.4 60 18 159/82 99 06/27/16 20:12 59 06/27/16 20:00 97.5 60 18 157/76 99 06/27/16 16:00 97.3 60 20 119/57 100 I/O 06/27/16 06/27/16 06/27/16 06/28/16 06/28/16 06/28/16 07:00 15:00 23:00 07:00 15:00 23:00 Intake Total 981 ml 1280 ml 435 ml 910 ml 940 ml Balance 981 ml 1280 ml 435 ml 910 ml 940 ml Intake Oral 360 ml 480 ml 435 ml 120 ml 940 ml IV Total 621 ml 800 ml 790 ml # Voids 6 2 1 2 2 # Bowel Movements 1 0 0 Result Diagram: 06/28/16 0610 06/28/16 0610 Objective Remarks - GENERAL: This is a well-nourished, well-developed patient, in no apparent distress. SKIN: No rashes, warm and dry HEAD: Atraumatic. Normocephalic. EYES: Pupils equal round and reactive. Extraocular motions intact. No scleral icterus. ENT: Nose without bleeding, or drainage, Airway patent. NECK: Trachea midline. Supple CARDIOVASCULAR: Regular rate and rhythm without positive systolic murmur 2 out of 6 RESPIRATORY: Fair air entry bilaterally positive crackles at the bases GASTROINTESTINAL: Abdomen soft, non-tender, nondistended. Positive bowel sounds MUSCULOSKELETAL: Extremities without clubbing, cyanosis, or edema. Pedal pulses appreciated NEUROLOGICAL: Awake and alert. Moves all extremity. Normal speech.no focal neurological deficit A/P Assessment and Plan 06/28: Discussed with Dr. Jhaveri, plan was for pacemaker change today however patient took elliquis will defer until tomorrow A/P Chest pain The patient developed a few minutes of chest pain on the day prior to admission. The pain radiated from her right arm to her chest and she also experienced numbness in her fingers. EKG is paced and without evidence of acute ischemia. Chest x-ray was unremarkable. Possibly secondary to hypertension. Appreciate cardiology consultation. - Trend troponins. Latest value was 0.43. medically managed per cardiology. An consulted Dr. Jhaveri for possible need to change pacemaker to biventricular - Monitor on telemetry. - continue cardiac regimen. - Pain control and oxygen as needed. LE weakness The pt said her LEs have been weak since 06/26. Per nursing she is dragging her left leg when ambulating. Bilateral LE weakness noted on exam. No pain or paresthesias in the legs or back. She is on Eliquis for CVA prevention. - check a CT brain. - TSH, B12, folate levels pending. - PT/OT. UTI The patient complains of urinary frequency. Urine culture growing GNR. - Continue ceftriaxone. - Follow urine culture. Lightheadedness/ decreased by mouth intake The patient has not been eating or drinking lately. She has been nauseous. The patient is noted to have leukopenia, may be secondary to a viral syndrome. - IV fluids. - Encourage by mouth intake. Add ensure to meals. - PT/OT. - pacemaker interrogated, Dr. Jhaveri consulted Acute on chronic kidney injury Creatinine was elevated above baseline. Likely secondary to decreased by mouth intake and UTI. Improved with fluids. - Treatment as above. - Avoid nephrotoxic agents. Atrial fibrillation Status post pacemaker. Heart rate well controlled at this time. - Continue Cardizem and metoprolol as well as Eliquis. - Monitor on telemetry. - Dr. Lauren to evaluate for possible biventricular pacer in AM. Hypertension The patient is on multiple medications. Blood pressure fluctuates widely. - Continue Cardizem, hydralazine and metoprolol. Resume Clonidine at lower dose. - Vasotec as needed. PPx: Hung. Alton Cohen MD Jun 28, 2016 15:50
[2016-06-28] MEDS: RESP: ALBUTEROL 2.5 MG/IPRATROPIUM 0.5 MG NEB (PRN) NEB (16:14)
[2016-06-29] VITALS (13 sets, daily range): BP systolic 148–199; BP diastolic 85–109; PULSE 59–74; RESP 16–20; TEMP 97.5–98.1; O2SAT 96–100
[2016-06-29] MEDS: SODIUM CHLOR 0.9% 1000 ML INJ 1,000 ML IV SCH ×3 (04:27→21:13)
[2016-06-29 06:49] LABS: PROTHROMBIN TIME - PATIENT 11.6 SEC (9.8-11.6)
[2016-06-29] MEDS: LORazepam 2 MG/ML VIAL IM PRN ×2 (06:49→13:36)
[2016-06-29] MEDS: RESP: ALBUTEROL 2.5 MG/IPRATROPIUM 0.5 MG NEB (PRN) NEB ×2 (08:38→21:32)
[2016-06-29] MEDS: cefTRIAXone INJ 1,000 MG in SODIUM CHLORIDE 0.9% INJ 100 ML IV SCH (08:46)
[2016-06-29] MEDS: DILTIAZEM-CD 240 MG CAP ER PO SCH (08:47)
[2016-06-29] MEDS: RAMIPRIL 5 MG CAP PO SCH (08:48)
[2016-06-29] MEDS: CHOLECALCIFEROL (VIT D3) 1000 UNIT TAB PO SCH (08:48)
[2016-06-29] MEDS: METOPROLOL TARTRATE 50 MG TAB PO SCH ×2 (08:48→21:11)
[2016-06-29] MEDS: cloNIDine HCL 0.1 MG TAB PO SCH ×4 (08:48→21:11)
[2016-06-29] MEDS: hydrALAZINE HCL 50 MG TAB PO SCH ×3 (08:49→19:22)
[2016-06-29] MEDS: SODIUM CHLORIDE 0.9% FLUSH 5 ML FLUSH FLUSH SCH ×2 (08:53→21:11)
[2016-06-29] MEDS: DOCUSATE SODIUM 100 MG CAP PO SCH ×2 (09:00→21:11)
[2016-06-29] MEDS ORDERED: MIDAZOLAM HCL 2 MG/2 ML VIAL ONE (15:19)
[2016-06-29] MEDS ORDERED: VANCOMYCIN 500 MG VIAL ONE (15:30)
[2016-06-29] MEDS ORDERED: LIDOCAINE HCL 2% 50 ML VIAL ONE (15:30)
[2016-06-29] MEDS ORDERED: VANCOMYCIN HCL 1000 MG VIAL ONE (15:30)
[2016-06-29] MEDS ORDERED: ceFAZolin INJ 1,000 MG VIAL ONE (15:31)
[2016-06-29] MEDS ORDERED: SODIUM CHLOR 0.9% 250 ML INJ 250 ML ONE (15:31)
--- NOTE | 2016-06-29 18:05 | HHI.PR ---
Subjective Remarks Seen in PACU, going for pacemaker upgrade, no acute issue afebrile no chest pain or short of breath Objective Vitals Vital Signs Date Time Temp Pulse Resp B/P Pulse Ox O2 Delivery O2 Flow Rate FiO2 06/29/16 12:00 97.7 63 20 160/90 98 06/29/16 09:14 71 06/29/16 08:43 99 Nasal Cannula 21 06/29/16 08:00 97.5 66 20 199/109 97 06/29/16 05:30 180/100 06/29/16 04:30 188/104 06/29/16 04:00 97.8 72 20 178/102 96 06/29/16 00:00 97.8 59 18 158/94 97 06/28/16 20:00 97.6 62 18 158/90 97 I/O 06/28/16 06/28/16 06/28/16 06/29/16 06/29/16 06/29/16 07:00 15:00 23:00 07:00 15:00 23:00 Intake Total 910 ml 940 ml 1506 ml 0 ml 795 ml Output Total 200 ml 825 ml Balance 910 ml 940 ml 1306 ml 0 ml -30 ml Intake Oral 120 ml 940 ml 240 ml 0 ml 0 ml IV Total 790 ml 1266 ml 795 ml Output Urine Total 200 ml 825 ml # Voids 2 2 1 3 1 # Bowel Movements 0 0 Result Diagram: 06/28/16 0610 06/28/16 0610 Objective Remarks - GENERAL: This is a well-nourished, well-developed patient, in no apparent distress. SKIN: No rashes, warm and dry HEAD: Atraumatic. Normocephalic. EYES: Pupils equal round and reactive. Extraocular motions intact. No scleral icterus. ENT: Nose without bleeding, or drainage, Airway patent. NECK: Trachea midline. Supple CARDIOVASCULAR: Regular rate and rhythm without positive systolic murmur 2 out of 6 RESPIRATORY: Fair air entry bilaterally positive crackles at the bases GASTROINTESTINAL: Abdomen soft, non-tender, nondistended. Positive bowel sounds MUSCULOSKELETAL: Extremities without clubbing, cyanosis, or edema. Pedal pulses appreciated NEUROLOGICAL: Awake and alert. Moves all extremity. Normal speech.no focal neurological deficit A/P Assessment and Plan 06/28: Discussed with Dr. Jhaveri, plan was for pacemaker change today however patient took elliquis will defer until tomorrow 06/29: Patient going for pacemaker upgrade by Dr. Jhaveri, monitor postop, creatinine decreasing to 1.48, CBC BMP in a.m. A/P Chest pain The patient developed a few minutes of chest pain on the day prior to admission. The pain radiated from her right arm to her chest and she also experienced numbness in her fingers. EKG is paced and without evidence of acute ischemia. Chest x-ray was unremarkable. Possibly secondary to hypertension. Appreciate cardiology consultation. - Trend troponins. Latest value was 0.43. medically managed per cardiology. An consulted Dr. Jhaveri for possible need to change pacemaker to biventricular - Monitor on telemetry. - continue cardiac regimen. - Pain control and oxygen as needed. LE weakness The pt said her LEs have been weak since 06/26. Per nursing she is dragging her left leg when ambulating. Bilateral LE weakness noted on exam. No pain or paresthesias in the legs or back. She is on Eliquis for CVA prevention. - check a CT brain. - TSH, B12, folate levels pending. - PT/OT. UTI The patient complains of urinary frequency. Urine culture growing GNR. - Continue ceftriaxone. - Follow urine culture. Lightheadedness/ decreased by mouth intake The patient has not been eating or drinking lately. She has been nauseous. The patient is noted to have leukopenia, may be secondary to a viral syndrome. - IV fluids. - Encourage by mouth intake. Add ensure to meals. - PT/OT. - pacemaker interrogated, Dr. Jhaveri consulted Acute on chronic kidney injury Creatinine was elevated above baseline. Likely secondary to decreased by mouth intake and UTI. Improved with fluids. - Treatment as above. - Avoid nephrotoxic agents. Atrial fibrillation Status post pacemaker. Heart rate well controlled at this time. - Continue Cardizem and metoprolol as well as Eliquis. - Monitor on telemetry. - Dr. Lauren to evaluate for possible biventricular pacer in AM. Hypertension The patient is on multiple medications. Blood pressure fluctuates widely. - Continue Cardizem, hydralazine and metoprolol. Resume Clonidine at lower dose. - Vasotec as needed. PPx: Eliquis. Alton Cohen MD Jun 29, 2016 18:05
[2016-06-29] MEDS ORDERED: TEMAZEPAM 15 MG CAP PO PRN (18:15)
[2016-06-29] MEDS ORDERED: ACETAMINOPHEN/CODEINE 300 MG/30 MG TAB PO PRN ×2 (18:15)
[2016-06-29] MEDS ORDERED: SODIUM CHLORIDE 0.9% FLUSH 5 ML FLUSH IVF PRN (18:15)
[2016-06-29] MEDS ORDERED: ONDANSETRON HCL 4 MG/2 ML VIAL IV PRN (18:15)
--- NOTE | 2016-06-29 19:21 | RADRPT ---
EXAM DATE/TIME: 06/29/2016 18:36 [facility] COMPARISON: CHEST SINGLE AP, June 25, 2016, 5:45. INDICATIONS : Shortness of breath. MEDICAL HISTORY : None. SURGICAL HISTORY : Pacemaker. ENCOUNTER: Initial ACUITY: 4 - 6 days PAIN SCORE: 2/10 LOCATION: Bilateral chest FINDINGS: A single view of the chest demonstrates new pacer leads overlying the right ventricle and coronary si nus compared with June 25. Heart size is enlarged. Minimal basilar atelectasis. No pneumothorax. CONCLUSION: 1. No pneumothorax. Placement of new pacer leads. Jacob Patel MD on June 29, 2016 at 19:19 Board Certified Radiologist. This report was verified electronically.
[2016-06-29] MEDS: SODIUM CHLORIDE 0.9% FLUSH 5 ML FLUSH IVF SCH (21:00)
[2016-06-29] MEDS: ceFAZolin 2 GM PREMIX 50 ML IV SCH (21:13)
[2016-06-30] VITALS (14 sets, daily range): BP systolic 123–176; BP diastolic 63–103; PULSE 69–78; RESP 16–19; TEMP 98.1–98.5; O2SAT 97–100
[2016-06-30] MEDS: ceFAZolin 2 GM PREMIX 50 ML IV SCH ×2 (04:20→13:37)
[2016-06-30] MEDS: RESP: ALBUTEROL 2.5 MG/IPRATROPIUM 0.5 MG NEB (PRN) NEB (06:46)
[2016-06-30 07:31] LABS: BICARBONATE 23.7 MEQ/L (21.0-32.0); POTASSIUM 3.6 MEQ/L (3.5-5.1)
[2016-06-30 07:34] LABS: AUTOMATED NEUTROPHIL # 3.8 TH/MM3 (1.8-7.7); BASOPHIL % 0.9 % (0.0-2.0); EOSINOPHIL # 0.1 TH/MM3 (0-0.4); HEMATOCRIT 33.1 % (35.0-46.0); HEMO FLAGS DIFF FINAL; LYMPH % 9.8 % (9.0-44.0); LYMPHOCYTE # 0.5 TH/MM3 (1.0-4.8); MEAN CELL VOLUME 75.9 FL (80.0-100.0); MEAN CORPUSCULAR HEMOGLOBIN 25.2 PG (27.0-34.0); MEAN CORPUSCULAR HGB CONC 33.2 % (32.0-36.0); MONO % 8.3 % (0.0-8.0); PLATELET COUNT 228 TH/MM3 (150-450); RED BLOOD COUNT 4.36 MIL/MM3 (4.00-5.30); RED CELL DISTRIBUTION WIDTH 17.1 % (11.6-17.2); WHITE BLOOD COUNT 4.8 TH/MM3 (4.0-11.0)
[2016-06-30] MEDS: DOCUSATE SODIUM 100 MG CAP PO SCH ×2 (09:05→20:45)
[2016-06-30] MEDS: hydrALAZINE HCL 50 MG TAB PO SCH ×3 (09:05→18:02)
[2016-06-30] MEDS: cloNIDine HCL 0.1 MG TAB PO SCH ×4 (09:05→20:45)
[2016-06-30] MEDS: RAMIPRIL 5 MG CAP PO SCH (09:05)
[2016-06-30] MEDS: DILTIAZEM-CD 240 MG CAP ER PO SCH (09:05)
[2016-06-30] MEDS: METOPROLOL TARTRATE 50 MG TAB PO SCH ×2 (09:05→20:45)
[2016-06-30] MEDS: CHOLECALCIFEROL (VIT D3) 1000 UNIT TAB PO SCH (09:05)
[2016-06-30] MEDS: cefTRIAXone INJ 1,000 MG in SODIUM CHLORIDE 0.9% INJ 100 ML IV SCH (09:06)
[2016-06-30] MEDS: SODIUM CHLORIDE 0.9% FLUSH 5 ML FLUSH FLUSH SCH ×2 (09:06→20:46)
--- NOTE | 2016-06-30 09:18 | PD.CARD.PN ---
Subjective Subjective Remarks Feels better this a.m. Objective Medications Current Medications Medications (Trade) Dose Ordered Sig/Bhavna Route Start Time Stop Time Status Last Admin (Cardizem Cd) 240 mg DAILY PO 06/25/16 09:00 06/30/16 09:05 Metoprolol Tartrate 50 mg 50 mg BID PO 06/25/16 09:00 06/30/16 09:05 (NS 1000 ml Inj) 1,000 ml @ 100 mls/hr Q10H IV 06/25/16 08:23 06/29/16 12:16 (NS Flush) 2 ml UNSCH PRN FLUSH 06/25/16 08:30 (NS Flush) 2 ml BID FLUSH 06/25/16 09:00 06/30/16 09:06 (Tylenol) 650 mg Q4H PRN PO 06/25/16 08:30 06/25/16 09:43 (Colace) 100 mg Q12H PO 06/25/16 09:00 06/30/16 09:05 (Tylenol) 650 mg Q6H PRN PO 06/25/16 08:30 (Narcan Inj) 0.4 mg UNSCH PRN IV 06/25/16 08:30 Apixaban 2.5 mg 2.5 mg BID PO 06/25/16 10:00 Hold 06/28/16 08:58 (Rocephin Inj/NS Inj) 100 ml @ 200 mls/hr Q24H IV 06/26/16 08:00 06/30/16 09:06 (Vitamin D3) 1,000 units DAILY PO 06/25/16 10:00 06/30/16 09:05 (Zofran Inj) 4 mg Q8HR PRN IV PUSH 06/25/16 09:45 (Apresoline) 50 mg TID PO 06/26/16 13:00 06/30/16 09:05 (Vasotec Inj) 1.25 mg Q6H PRN IV PUSH 06/27/16 08:15 06/29/16 05:43 (Catapres) 0.1 mg QID PO 06/28/16 13:00 06/30/16 09:05 (Altace) 5 mg DAILY PO 06/28/16 12:45 06/30/16 09:05 Lorazepam 0.5 mg 0.5 mg Q6H PRN IM 06/29/16 06:45 06/29/16 13:36 (Ancef 2 Gm Premix) 50 ml @ 100 mls/hr Q8H IV 06/29/16 20:00 06/30/16 12:29 06/30/16 04:20 (Restoril) 15 mg HS PRN PO 06/29/16 18:15 (Zofran Inj) 4 mg Q4H PRN IV 06/29/16 18:15 (Tylenol-Codeine #3) 1 tab Q4H PRN PO 06/29/16 18:15 (Tylenol-Codeine #3) 2 tab Q4H PRN PO 06/29/16 18:15 (NS Flush) 2 ml BID IVF 06/29/16 21:00 (NS Flush) 2 ml UNSCH PRN IVF 06/29/16 18:15 Vital Signs / I&O Vital Signs Date Time Temp Pulse Resp B/P Pulse Ox O2 Delivery O2 Flow Rate FiO2 06/30/16 06:00 69 06/30/16 05:00 69 06/30/16 04:00 71 06/30/16 03:00 98.3 70 18 154/84 99 06/30/16 03:00 70 06/30/16 02:00 70 06/30/16 01:00 72 06/30/16 00:00 74 06/29/16 23:00 98.1 70 17 148/85 100 06/29/16 23:00 72 06/29/16 22:00 74 06/29/16 21:00 74 06/29/16 20:00 74 06/29/16 19:00 70 06/29/16 19:00 98.0 70 16 170/97 100 06/29/16 19:00 98.0 70 16 170/97 100 06/29/16 12:00 97.7 63 20 160/90 98 06/29/16 09:14 71 I/O 06/29/16 06/29/16 06/29/16 06/30/16 06/30/16 06/30/16 07:00 15:00 23:00 07:00 15:00 23:00 Intake Total 0 ml 795 ml 120 ml 595 ml Output Total 825 ml Balance 0 ml -30 ml 120 ml 595 ml Intake Oral 0 ml 0 ml 120 ml 480 ml IV Total 795 ml 115 ml Output Urine Total 825 ml # Voids 3 1 1 2 # Bowel Movements 0 0 0 Physical Exam GENERAL: Well-nourished, well-developed patient. SKIN: Warm and dry. LCW incision well approximated without erythema, swelling or drainage. HEAD: Normocephalic. EYES: No scleral icterus. No injection or drainage. NECK: Supple, trachea midline. No JVD or lymphadenopathy. CARDIOVASCULAR: Regular rate and rhythm without murmurs, gallops, or rubs. RESPIRATORY: Breath sounds equal bilaterally. No accessory muscle use. GASTROINTESTINAL: Abdomen soft, non-tender, nondistended. EXTREMITIES: No cyanosis, or edema. Generalized weakness. NEUROLOGICAL: Awake, alert, and oriented x 3. Non-focal. Laboratory Laboratory Tests Test 06/30/16 05:56 White Blood Count 4.8 TH/MM3 Red Blood Count 4.36 MIL/MM3 Hemoglobin 11.0 GM/DL Hematocrit 33.1 % Mean Corpuscular Volume 75.9 FL Mean Corpuscular Hemoglobin 25.2 PG Mean Corpuscular Hemoglobin 33.2 % Concent Red Cell Distribution Width 17.1 % Platelet Count 228 TH/MM3 Mean Platelet Volume 8.7 FL Neutrophils (%) (Auto) 79.0 % Lymphocytes (%) (Auto) 9.8 % Monocytes (%) (Auto) 8.3 % Eosinophils (%) (Auto) 2.0 % Basophils (%) (Auto) 0.9 % Neutrophils # (Auto) 3.8 TH/MM3 Lymphocytes # (Auto) 0.5 TH/MM3 Monocytes # (Auto) 0.4 TH/MM3 Eosinophils # (Auto) 0.1 TH/MM3 Basophils # (Auto) 0.0 TH/MM3 CBC Comment DIFF FINAL Differential Comment Sodium Level 141 MEQ/L Potassium Level 3.6 MEQ/L Chloride Level 106 MEQ/L Carbon Dioxide Level 23.7 MEQ/L Anion Gap 11 MEQ/L Blood Urea Nitrogen 19 MG/DL Creatinine 1.28 MG/DL Estimat Glomerular Filtration 48 ML/MIN Rate Random Glucose 79 MG/DL Calcium Level 9.2 MG/DL Imaging Last 48 hours Impressions Chest X-Ray 06/29/16 0000 Signed Impressions: Service Date/Time: Wednesday, June 29, 2016 18:36 - CONCLUSION: 1. No pneumothorax. Placement of new pacer leads. Jacob Patel MD Assessment and Plan Problem List: (1) Atrial fibrillation with rapid ventricular response Assessment and Plan: Stable on meds, pacing appropriately. (2) Acute on chronic congestive heart failure Assessment and Plan: EF 25%, recurrent HF requiring upgrade to BiVICD for cardiac resynchronization. (3) Biventricular ICD (implantable cardioverter-defibrillator) in place Assessment and Plan: CXR ok, incision clean, device function appropriate. Can be dc'd from EP standpoint when cleared by managing team, however pt's. daughter expressed concern that her mother is unable to care for herself due to the post-operative Left arm restrictions and requests that support be arranged for prior to DC. Assessment and Plan D/W pt, daughter, RN, Dr. Lauren. Problem Qualifiers (1) Acute on chronic congestive heart failure: Qualified Code: I50.23 - Acute on chronic systolic congestive heart failure Madhavi Redd Jun 30, 2016 09:18
--- NOTE | 2016-06-30 09:50 | HHI.FF ---
Face to Face Verification Diagnosis: (1) Biventricular ICD (implantable cardioverter-defibrillator) in place (2) UTI (urinary tract infection) Physical Therapy Order: Evaluate and Treat Occupational Therapy Order: Evaluate and Treat Home Health Nursing Order: Medical education Wound care and dressing changes Nursing assessment with vital signs I have seen patient Manny Salgado on 06/30/16. My clinical findings support the need for the requested home health care services because: Deconditioned w/ increased weakness I certify that my clinical findings support that this patient is homebound because: Poor cardiac reserve Alton Cohen MD Jun 30, 2016 09:50
[2016-06-30] MEDS ORDERED: RAMI5CAP PO (09:58)
[2016-06-30] MEDS ORDERED: CEPH500C PO (10:01)
--- NOTE | 2016-06-30 10:08 | HHI.DS ---
Discharge Summary Admission Date Jun 25, 2016 at 07:36 Discharge Date: Jul 01, 2016 Admitting Diagnosis UTI, TEMO (1) UTI (urinary tract infection) ICD Code: N39.0 (2) Biventricular ICD (implantable cardioverter-defibrillator) in place ICD Code: Z95.810 (3) Atrial fibrillation with rapid ventricular response ICD Code: I48.91 (4) Kidney injury ICD Code: S37.009A (5) CKD (chronic kidney disease) stage 3, GFR 30-59 ml/min ICD Code: N18.3 Procedures Upgrade pacemaker to biventricular Brief History - From Admission The patient is an 86-year-old female with a past medical history of atrial fibrillation status post pacemaker and hypertension who is presenting to the hospital with dizziness, nausea and chest pain. The patient says that her symptoms started 2 days ago where she started to develop a sensation of lightheadedness. She felt like her heart was beating slowly. She says she had a pacemaker placed in 2014. She denied any shortness of breath associated with it. She said yesterday afternoon she developed chest pain. She says the chest pain started in her right arm and radiated to her chest. She described the sensation as a dull kind of pain. She rated it as a 4 out of 10 in severity. The chest pain lasted for a few minutes. She said she had numbness in her fingers during the episode. She said those symptoms have resolved. Patient felt nauseous this morning and she says she has been dry heaving. She has not been eating well lately because she has not had an appetite. She has not been drinking much fluids. She has been experiencing frequent urination. She denies any pain on urination. She denies any fevers. She says she lives alone and has been ambulating with a walker and cane. CBC/BMP: 06/30/16 0556 06/30/16 0556 Significant Findings Laboratory Tests Test 06/27/16 06/28/16 06/28/16 06/30/16 12:37 06:10 13:27 05:56 Troponin I 0.38 NG/ML (0.02-0.05) White Blood Count 2.8 TH/MM3 (4.0-11.0) Hemoglobin 10.4 GM/DL 11.0 GM/DL (11.6-15.3) (11.6-15.3) Hematocrit 31.0 % 33.1 % (35.0-46.0) (35.0-46.0) Mean Corpuscular Volume 74.7 FL 75.9 FL (80.0-100.0) (80.0-100.0) Mean Corpuscular Hemoglobin 25.1 PG 25.2 PG (27.0-34.0) (27.0-34.0) Chloride Level 110 MEQ/L (98-107) Blood Urea Nitrogen 27 MG/DL (7-18) 19 MG/DL (7-18) Creatinine 1.48 MG/DL 1.28 MG/DL (0.50-1.00) (0.50-1.00) Estimat Glomerular Filtration 40 ML/MIN (>89) 48 ML/MIN (>89) Rate Prothrombin Time 12.0 SEC (9.8-11.6) Neutrophils (%) (Auto) 79.0 % (16.0-70.0) Monocytes (%) (Auto) 8.3 % (0.0-8.0) Lymphocytes # (Auto) 0.5 TH/MM3 (1.0-4.8) PE at Discharge - GENERAL: This is a well-nourished, well-developed patient, in no apparent distress. SKIN: No rashes, warm and dry HEAD: Atraumatic. Normocephalic. EYES: Pupils equal round and reactive. Extraocular motions intact. No scleral icterus. ENT: Nose without bleeding, or drainage, Airway patent. NECK: Trachea midline. Supple CARDIOVASCULAR: Regular rate and rhythm without positive systolic murmur 2 out of 6 RESPIRATORY: Fair air entry bilaterally positive crackles at the bases GASTROINTESTINAL: Abdomen soft, non-tender, nondistended. Positive bowel sounds MUSCULOSKELETAL: Extremities without clubbing, cyanosis, or edema. Pedal pulses appreciated NEUROLOGICAL: Awake and alert. Moves all extremity. Normal speech.no focal neurological deficit Hospital Course 86 years old male with a history of advanced congestive heart failure admitted for chest pain UTI, lightheadedness and acute on chronic kidney disease, cardiology consulted, they recommended EP learning and development officer consult, who did evaluate the patient and recommended upgrading his pacemaker to biventricular to improve his cardiac output, patient had that procedure on 06/29/16, doing well postop, he started on Rocephin for UTI with Escherichia coli, patient had PT OT recommended rehabilitation however he refused rehabilitation, so lengthy discussion has been done, and he was offered rehabilitation versus home with home health care, he will be discharged on Keflex for both UTI and wound recovery for the pacemaker. She was continued on his home medication for A. fib and hypertension metoprolol hydralazine Cardizem however losartan was changed to ramipril by cardiology Pt Condition on Discharge: Fair Discharge Disposition: Discharge to SNF Discharge Time: > 30 minutes Discharge Instructions DIET: Follow Instructions for: Heart Healthy Diet Activities you can perform: See Additionl Instruction Other Activity Instructions: per pt recs New Medications: Cephalexin (Cephalexin) 500 Mg Cap 500 MG PO Q8HR uti, wound #21 CAP Ramipril (Ramipril) 5 Mg Cap 5 MG PO DAILY htn #30 CAP Continued Medications: Apixaban (Eliquis) 2.5 Mg Tab 2.5 MG PO BID Blood Clot Prevention Ref 0 TAB Cholecalciferol (Vitamin D3) 1,000 Unit Cap 1000 UNITS PO DAILY Nutritional Supplement #1 Ref 0 BOTTLE Clonidine (Clonidine) 0.3 Mg Tab 0.3 MG PO BID Blood Pressure Management #60 Ref 0 TAB Diltiazem ER 24 HR (Diltiazem ER 24 HR) 240 Mg Caper 240 MG PO DAILY #30 Ref [address] (Doxycycline Hyclate DR) 100 Mg Tab 100 MG PO BID Infection Ref 0 TAB Hydralazine (Hydralazine) 50 Mg Tab 50 MG PO TID Take with a meal Blood Pressure Management Ref 0 TAB Metoprolol Tartrate (Metoprolol Tartrate) 50 Mg Tab 50 MG PO BID #60 Ref 0 TAB Alton Cohen MD Jun 30, 2016 10:08
--- NOTE | 2016-06-30 11:37 | HHI.PR ---
Subjective Remarks pt denied any complain , she told me she changed her mind and wants to go to rehab Objective Vitals Vital Signs Date Time Temp Pulse Resp B/P Pulse Ox O2 Delivery O2 Flow Rate FiO2 06/30/16 06:00 69 06/30/16 05:00 69 06/30/16 04:00 71 06/30/16 03:00 98.3 70 18 154/84 99 06/30/16 03:00 70 06/30/16 02:00 70 06/30/16 01:00 72 06/30/16 00:00 74 06/29/16 23:00 98.1 70 17 148/85 100 06/29/16 23:00 72 06/29/16 22:00 74 06/29/16 21:00 74 06/29/16 20:00 74 06/29/16 19:00 70 06/29/16 19:00 98.0 70 16 170/97 100 06/29/16 19:00 98.0 70 16 170/97 100 06/29/16 12:00 97.7 63 20 160/90 98 I/O 06/29/16 06/29/16 06/29/16 06/30/16 06/30/16 06/30/16 07:00 15:00 23:00 07:00 15:00 23:00 Intake Total 0 ml 795 ml 120 ml 595 ml Output Total 825 ml Balance 0 ml -30 ml 120 ml 595 ml Intake Oral 0 ml 0 ml 120 ml 480 ml IV Total 795 ml 115 ml Output Urine Total 825 ml # Voids 3 1 1 2 # Bowel Movements 0 0 0 Result Diagram: 06/30/16 0556 06/30/16 0556 Objective Remarks - GENERAL: This is a well-nourished, well-developed patient, in no apparent distress. SKIN: No rashes, warm and dry HEAD: Atraumatic. Normocephalic. EYES: Pupils equal round and reactive. Extraocular motions intact. No scleral icterus. ENT: Nose without bleeding, or drainage, Airway patent. NECK: Trachea midline. Supple CARDIOVASCULAR: Regular rate and rhythm without positive systolic murmur 2 out of 6 RESPIRATORY: Fair air entry bilaterally positive crackles at the bases GASTROINTESTINAL: Abdomen soft, non-tender, nondistended. Positive bowel sounds MUSCULOSKELETAL: Extremities without clubbing, cyanosis, or edema. Pedal pulses appreciated NEUROLOGICAL: Awake and alert. Moves all extremity. Normal speech.no focal neurological deficit Procedures Upgrade pacemaker to biventricular A/P Problem List: (1) UTI (urinary tract infection) ICD Code: N39.0 Status: Acute (2) Biventricular ICD (implantable cardioverter-defibrillator) in place ICD Code: Z95.810 Status: Acute (3) Atrial fibrillation with rapid ventricular response ICD Code: I48.91 Status: Acute (4) Kidney injury ICD Code: S37.009A Status: Acute (5) CKD (chronic kidney disease) stage 3, GFR 30-59 ml/min ICD Code: N18.3 Status: Acute Assessment and Plan 06/28: Discussed with Dr. Jhaveri, plan was for pacemaker change today however patient took elliquis will defer until tomorrow 06/29: Patient going for pacemaker upgrade by Dr. Jhaveri, monitor postop, creatinine decreasing to 1.48, CBC BMP in a.m. 06/30 doing well , she wants to go to rehab A/P Chest pain The patient developed a few minutes of chest pain on the day prior to admission. The pain radiated from her right arm to her chest and she also experienced numbness in her fingers. EKG is paced and without evidence of acute ischemia. Chest x-ray was unremarkable. Possibly secondary to hypertension. Appreciate cardiology consultation. - Trend troponins. Latest value was 0.43. medically managed per cardiology. An consulted Dr. Jhaveri for possible need to change pacemaker to biventricular - Monitor on telemetry. - continue cardiac regimen. - Pain control and oxygen as needed. LE weakness The pt said her LEs have been weak since 06/26. Per nursing she is dragging her left leg when ambulating. Bilateral LE weakness noted on exam. No pain or paresthesias in the legs or back. She is on Eliquis for CVA prevention. - check a CT brain. - TSH, B12, folate levels pending. - PT/OT. UTI The patient complains of urinary frequency. Urine culture growing GNR. - Continue ceftriaxone. - Follow urine culture. Lightheadedness/ decreased by mouth intake The patient has not been eating or drinking lately. She has been nauseous. The patient is noted to have leukopenia, may be secondary to a viral syndrome. - IV fluids. - Encourage by mouth intake. Add ensure to meals. - PT/OT. - pacemaker interrogated, Dr. Jhaveri consulted Acute on chronic kidney injury Creatinine was elevated above baseline. Likely secondary to decreased by mouth intake and UTI. Improved with fluids. - Treatment as above. - Avoid nephrotoxic agents. Atrial fibrillation Status post pacemaker. Heart rate well controlled at this time. - Continue Cardizem and metoprolol as well as Eliquis. - Monitor on telemetry. - Dr. Lauren to evaluate for possible biventricular pacer in AM. Hypertension The patient is on multiple medications. Blood pressure fluctuates widely. - Continue Cardizem, hydralazine and metoprolol. Resume Clonidine at lower dose. - Vasotec as needed. PPx: Eliquis. Problem Qualifiers (1) UTI (urinary tract infection): Qualified Code: N39.0 - Urinary tract infection with hematuria, site unspecified (2) Kidney injury: Qualified Code: S37.009A - Kidney injury, unspecified laterality, initial encounter Alton Cohen MD Jun 30, 2016 11:37
[2016-06-30] MEDS ORDERED: PROPOFOL 200 MG/20 ML AMP IV ONE (11:39)
[2016-06-30] MEDS: CEPHALEXIN MONOHYDRATE 500 MG CAP PO SCH ×2 (13:37→20:45)
--- NOTE | 2016-06-30 18:40 | EKG ---
Date Performed: 06/30/2016 Time Performed: 06:20:10 PTAGE: 86 years EKG: Ventricular pacing Pacemaker rhythm - no further analysis Abnormal ECG PREVIOUS TRACING : 06/29/2016 20.31 Compared to prior tracing no significant change DOCTOR: Bin Krause Interpretating Date/Time 06/30/2016 18:38:55
[2016-06-30] MEDS: SODIUM CHLORIDE 0.9% FLUSH 5 ML FLUSH IVF SCH (20:46)
[2016-06-30] MEDS: SODIUM CHLOR 0.9% 1000 ML INJ 1,000 ML IV SCH (21:46)
--- NOTE | 2016-06-30 22:24 | EKG ---
Date Performed: 06/29/2016 Time Performed: 20:31:02 PTAGE: 86 years EKG: Ventricular pacing Pacemaker rhythm - no further analysis Abnormal ECG PREVIOUS TRACING : 06/25/2016 15.53 Compared to the previous tracing, previously RV paced, now appears to be biventricularly paced DOCTOR: Bin Krause Interpretating Date/Time 06/30/2016 22:23:10
[2016-07-01] VITALS (8 sets, daily range): BP systolic 149–163; BP diastolic 87–95; PULSE 69–72; RESP 17–18; TEMP 98–98.4; O2SAT 100
[2016-07-01] MEDS: CEPHALEXIN MONOHYDRATE 500 MG CAP PO SCH (05:06)
[2016-07-01] MEDS: RAMIPRIL 5 MG CAP PO SCH (08:47)
[2016-07-01] MEDS: hydrALAZINE HCL 50 MG TAB PO SCH (08:47)
[2016-07-01] MEDS: DOCUSATE SODIUM 100 MG CAP PO SCH (08:47)
[2016-07-01] MEDS: cefTRIAXone INJ 1,000 MG in SODIUM CHLORIDE 0.9% INJ 100 ML IV SCH (08:47)
[2016-07-01] MEDS: cloNIDine HCL 0.1 MG TAB PO SCH (08:47)
[2016-07-01] MEDS: METOPROLOL TARTRATE 50 MG TAB PO SCH (08:47)
[2016-07-01] MEDS: CHOLECALCIFEROL (VIT D3) 1000 UNIT TAB PO SCH (08:47)
[2016-07-01] MEDS: SODIUM CHLORIDE 0.9% FLUSH 5 ML FLUSH FLUSH SCH (08:47)
[2016-07-01] MEDS: DILTIAZEM-CD 240 MG CAP ER PO SCH (08:47)
--- NOTE | 2016-07-07 10:26 | MP ---
cc: JACQUELINE MO M.D. DATE OF SURGERY 06/29/2016 PROCEDURE PERFORMED 1. Permanent pacemaker removal. 2. Biventricular pacer defibrillator insertion. New RV defibrillatory lead, new LV defibrillatory lead and cap existing RV lead. INDICATIONS Ms. Salgado is an 86-year-old -[place] female with congestive heart failure, cardiomyopathy, on optimal medical treatment. ENEDELIA inhibitor was held because of creatinine clearance, ejection fraction 25%, 100% RV pacing to undergo upgrade of permanent pacemaker to a biventricular pacer defibrillator. The risks, the nature and the benefit of the procedure are clearly stated to her. The risks include pneumothorax, cardiac perforation, stroke and even . The patient understood and agreed to proceed. This is nonischemic cardiomyopathy. PROCEDURE After written informed consent was obtained, the patient was brought to the EP Lab where she was prepped and draped in the usual sterile fashion. Conscious sedation was initiated and maintained throughout the procedure by the anesthesiologist. Once sedation verified, the left infraclavicular area over the existing generator was anesthetized with 2% Xylocaine. Using modified Seldinger technique, I did attempt to cannulate the left subclavian vein on two occasions. I could not advance the guidewire. Then, a 2-0 Vicryl suture was placed around the wire to prevent back-bleeding. At this point I did advance the 5-[place] dilator over the wire. Venography was performed for total occlusion. I decided to cross the occlusion that was at the midportion of the left subclavian. First I did advance the Glidewire. I was unable to advance the Glidewire. I did advance over the Glidewire a Quick-Cross catheter. Subsequently I changed the angled Glidewire for a straight Glidewire. After multiple attempts, I was able to cross the lesion. The Glidewire was advanced all the way to the superior vena cava. Then the Quick-Cross catheter was advanced. I did exchange a [place] over the Quick-Cross for a stiff Amplatz. The stiff Amplatz was advanced, then the Quick-Cross was removed. I did attempt to advance a 5-[place] dilator. At this point I decided to proceed with venoplasty. I did use 8 x 80-mm balloon Admiral. I did performed three inflations at 11 atmospheres. That gave me 8.1 mm. Subsequently I did approximately at the level of the a lesion and distal to the lesion. At this point I did advance a 7-[place] dilator and introducer. As the dilator and wire were removed, I did advance stiff Amplatz through the sheath. Then the sheath was removed. Then over the lateral wire, an 8-[place] dilator and introducer was advanced. As the dilator and wire were removed, an active fixation right ventricular pacing/sensing/defibrillatory lead was advanced. After adequate pacing and sensing thresholds obtained, the lead was secured in the pocket using #2 Ethibond suture. Then over the remaining wire, a 9-[place] dilator and introducer was advanced. As the dilator was removed, I did advance a CS cannulation sheath to the wire. Once the sheath crossed, the wire was removed. Through the sheath a [place] steerable catheter was advanced. After multiple attempts, the coronary sinus was cannulated. CS venography show an adequate lateral branch. Using a [place] wire, the lateral branch was cannulated and the lead was advanced over the wire. After adequate pacing and sensing thresholds obtained, the peel-away introducer was removed and the cutter introducer was removed and the lead was secured in the pocket using #2 Ethibond suture. At that point the pocket was copiously irrigated with antibiotic solution. The existing RV lead was capped. The permanent pacemaker generator was removed and the leads were connected to the generator and placed into the pocket. I did proceed with wound closure. The deep fascial layer was approximated using #2-0 Vicryl suture in a continuous fashion. The subcutaneous layer was approximated using #2-0 Vicryl suture in a continuous fashion. The subcuticular layer was approximated using #2-0 Vicryl suture in a continuous fashion. Dermabond adhesive was applied to the wound, followed by sterile pressure dressing. That was a very complex, long and difficult case. No incident reported. I decided not to proceed with device testing because of the patient's condition. 1. Explanted Hardware: The explanted permanent pacemaker is a [employer] serial number [id number]. 2. Implanted Hardware: The implanted biventricular pacer defibrillator is a [employer] model number 365818, serial number [id number]. The right ventricular pacing/sensing/ defibrillatory lead is a [employer] model number 829066, serial number [id number]. The left ventricular pacing/sensing lead is a [employer] model number 4398-88, serial number [id number]. 3. Thresholds: The right ventricular pacing threshold in the bipolar mode was at 0.6 volts at 0.4 milliseconds. Lead impedance is 500, 5 ohms, R-wave at 12.3 mV. The right ventricle pacing threshold in the bipolar mode was 1.2 volts at 0.5 milliseconds, lead impedance 420 ohms. 4. Settings: The device set in a VVIR 70, upper limit 120 beats per minute, defibrillatory portion for two zones - one zone for ventricular tachycardia between 160 and 240 beats per minute. Initial therapy consists of one burst of ATP, one ramp, 81%, 10 pause, 10 millisecond decremental, followed by 20, then 30 and also subsequent shocks at 40 joules defibrillatory shock. The second zone for ventricular fibrillation above 240 beats per minute, first therapy at 30 and all subsequent shocks ate 40 joules defibrillatory shock. CONCLUSION Successful permanent pacemaker removal, biventricular pacer defibrillator insertion, new RV lead, new LV lead. Successful permanent pacemaker removal, successful subclavian venoplasty. COMMENT AND RECOMMENDATIONS The patient is going to be transferred to the telemetry unit. She will be observed and when stable can be discharged home. Jacqueline Mo MD HS/SSB /12:37 PM /9:59 AM
== END 2016-07-01 11:30 | DRG 981 ==
LOC: NEPC 22:54 → NEDA 06-25 07:36 → NEDH 06-25 13:38 → N04B 06-25 18:55 → HCIS 06-29 17:37
PROVIDERS: ADMIT Internal Medicine; ATTEND Internal Medicine
PROC: 05763ZZ Dilation of Left Subclavian Vein, Percutaneous Approach (ICD-10-PCS; 2016-06-29)
PROC: 02HK3KZ Insertion of Defibrillator Lead into Right Ventricle, Percutaneous Approach (ICD-10-PCS; 2016-06-29)
PROC: 02HL3KZ Insertion of Defibrillator Lead into Left Ventricle, Percutaneous Approach (ICD-10-PCS; 2016-06-29)
PROC: 02PA3MZ Removal of Cardiac Lead from Heart, Percutaneous Approach (ICD-10-PCS; 2016-06-29)
PROC: 0JPT3PZ Removal of Cardiac Rhythm Related Device from Trunk Subcutaneous Tissue and Fascia, Percutaneous Approach (ICD-10-PCS; 2016-06-29)
PROC: 0JH609Z Insertion of Cardiac Resynchronization Defibrillator Pulse Generator into Chest Subcutaneous Tissue and Fascia, Open Approach (ICD-10-PCS; principal; 2016-06-29 15:00)
DX: N39.0 Urinary tract infection, site not specified (principal); I50.23 Acute on chronic systolic (congestive) heart failure; N17.9 Acute kidney failure, unspecified; I13.0 Hypertensive heart and chronic kidney disease with heart failure and stage 1 through stage 4 chronic kidney disease, or unspecified chronic kidney disease; I82.B12 Acute embolism and thrombosis of left subclavian vein; I42.8 Other cardiomyopathies; I48.91 Unspecified atrial fibrillation; R42 Dizziness and giddiness; N18.3 Chronic kidney disease, stage 3 (moderate); I35.0 Nonrheumatic aortic (valve) stenosis; R07.89 Other chest pain; B96.20 Unspecified Escherichia coli [E. coli] as the cause of diseases classified elsewhere; R53.1 Weakness; R26.2 Difficulty in walking, not elsewhere classified; D64.9 Anemia, unspecified; D72.819 Decreased white blood cell count, unspecified; I48.2 Chronic atrial fibrillation; E78.5 Hyperlipidemia, unspecified; R31.9 Hematuria, unspecified; Z95.0 Presence of cardiac pacemaker; Z79.01 Long term (current) use of anticoagulants
CPT/HCPCS: 33224; 33249; 37248; 70450; 71010; 76937; 80048; 81001; 82607; 82746; 83735; 84443; 84484; 85025; 85027; 85610; 85730; 87077; 87086; 87186; 93005; 93306; 94150; 94640; 94664; C1725; C1730; C1751; C1769; C1882; C1895; C1900; J0690; J0696; J2060; J2250; J3010; J3370; J7030; J7040; J7050

== ENCOUNTER 2016-07-21 15:50 | Inpatient (IN) | payer OTHER, MEDICARE ==
[~2016-07-21] VITALS: Ht 157.5 cm; Wt 87.5 kg
[2016-07-21] VITALS (13 sets, daily range): BP systolic 139–228; BP diastolic 77–120; PULSE 71–93; RESP 16–20; TEMP 98.6–99.6; O2SAT 96–100
[~2016-07-21 15:50] MED LIST changes: -APIX2.5 PO; +APIX2.5T PO; -CEPH500; +CEPH500C PO; +CLON0.3T PO; +DILT-48 PO; -DILTCD240 PO; +DOXY1TAB6 PO; +HYDR50TA15 PO; -HYDRA50 PO; +METO50TA PO; +RAMI5CAP PO; -VITA-13 PO; +VITA100036 PO; -VITA500C9 PO
[2016-07-21] MEDS ORDERED: SODIUM CHLORIDE 0.9% FLUSH 5 ML FLUSH IVF PRN (16:00)
[2016-07-21 16:09] LABS: BLOOD GAS BASE EXCESS 3.8 mmol/L (-2-2); BLOOD GAS CARBOXYHEMOGLOBIN 2.5 % (0-4); BLOOD GAS HCO3 28 mmol/L (22-26); BLOOD GAS METHEMOGLOBIN 1.9 % (0-2); BLOOD GAS O2 HGB SATURATION 90 % (90-100); BLOOD GAS OXYGEN CONTENT 13.1 Vol % (12.0-20.0); BLOOD GAS PCO2 41 mmHg (38-42); BLOOD GAS PO2 74 mmHG (61-120); BLOOD GAS TOTAL HGB 10.3 G/DL (12.0-16.0); CRITICAL VALUE NO; OXYGEN DEVICE NASAL CANNULA; TEMP CORR TO 98.6
[2016-07-21 16:10] LABS: DRAW SITE RT RADIAL; LITER FLOW 2 L/M; NUMBER OF ARTERIAL PUNCTURES 1; STAT YES; ULNAR PULSE PRESENT
[2016-07-21] MEDS ORDERED: DULC10SU3 RECTAL (16:18)
[2016-07-21] MEDS ORDERED: LORA-392 PO (16:18)
[2016-07-21] MEDS ORDERED: VITA10003 PO (16:18)
[2016-07-21] MEDS ORDERED: LEXA10TA PO (16:18)
[2016-07-21] MEDS ORDERED: TRAZ150T75 PO (16:18)
--- NOTE | 2016-07-21 16:34 | RADRPT ---
EXAM DATE/TIME: 07/21/2016 16:14 [facility] COMPARISON: CHEST SINGLE AP, June 29, 2016, 18:36. INDICATIONS : Short of breath. MEDICAL HISTORY : Unobtainable. SURGICAL HISTORY : Unobtainable. ENCOUNTER: Initial ACUITY: 1 day PAIN SCORE: 0/10 LOCATION: Bilateral chest FINDINGS: Pacemaker is implanted in the left chest. The right lung is clear. There are consolidative changes in the left base new from the comparison study. Pulmonary vascularity is normal. CONCLUSION: New consolidative changes in the left base with air bronchograms. Suspicious for an i nflammatory process. Kwaku Gutiérrez MD FACR on July 21, 2016 at 16:30 Board Certified Radiologist. This report was verified electronically.
--- NOTE | 2016-07-21 16:43 | PD ---
HPI Chief Complaint: Altered Mental Status Time Seen by Provider: 15:57 Travel History International Travel<30 days: No Contact w/Intl Traveler<30days: No Traveled to known affect area: No History of Present Illness HPI 86-year-old female came to the emergency room with history of altered mental status. She was brought in by EMS from her doctor's office. Patient was last seen at her baseline normal mental status by her family 2 weeks ago. She spoke with her family one week ago and at that time she sounded okay on the phone although she was complaining of getting sick. Today the family came to visit her and found her unresponsive. He took her to the primary care doctor where EMS was called given her mental status. She has history of UTI in the past. Here patient was opening eyes and talking a little bit slurred speech on sternal rub. Vital signs were otherwise stable. She is not a reliable historian and majority of the history was obtained from the nursing note as well as the paperwork that came from the primary care's office. Her rectal temperature was 99.6. PFSH Past Medical History Narrative Medical List of her past medical, surgical, social history was obtained from the nursing note. Hx Anticoagulant Therapy: Yes Arthritis: Yes Asthma: No Atrial Fibrillation: Yes Autoimmune Disease: No Blood Disorders: No Anxiety: Yes (DUE TO HEALTH CONDITION ) Depression: No Heart Rhythm Problems: Yes Cancer: No Cardiac Catheterization: Yes Cardiovascular Problems: Yes High Cholesterol: Yes Chemotherapy: No Chest Pain: Yes Congestive Heart Failure: No COPD: No Cerebrovascular Accident: Yes (PT DENIES) Diabetes: No Diminished Hearing: No Endocrine: No Gastrointestinal Disorders: No GERD: No Genitourinary: Yes (UTI) Hiatal Hernia: No Hypertension: Yes Immune Disorder: No Musculoskeletal: Yes Neurologic: Yes Psychiatric: No Reproductive: No Respiratory: No Migraines: No Myocardial Infarction: Yes Radiation Therapy: No Seizures: No Sickle Cell Disease: No Sleep Apnea: No Thyroid Disease: No Ulcer: No ?: Not Menopausal: Yes Past Surgical History AICD: No Arteriovenous Shunt: No Cardiac Surgery: No Ear Surgery: No Endocrine Surgery: No Eye Surgery: No Gynecologic Surgery: Yes (hysterectomy) Hysterectomy: Yes (Partial) Insulin Pump: No Joint Replacement: No Oral Surgery: No Pacemaker: Yes (2014) Other Surgery: Yes Social History Alcohol Use: No Tobacco Use: No Substance Use: No Allergies-Medications (Allergen,Severity, Reaction): Coded Allergies: MRI PRECAUTION (Verified Adverse Reaction, Severe, 07/22/16) Patient has a non conditional pacemaker. Biotronik Itrevia with Medtronic leads. EG 07/22/2016. ENEDELIA Inhibitors (Verified Adverse Reaction, Unknown, COUGH, 07/21/16) Comments List of her allergies reviewed from the nursing note. Reported Meds & Prescriptions Reported Meds & Active Scripts Active Ramipril 5 Mg Cap 5 Mg PO DAILY Reported Dulcolax Supp (Bisacodyl) 10 Mg Supp 10 Mg RECTAL DAILY PRN Ativan (Lorazepam) 0.5 Mg Tab 0.5 Mg PO Q6H PRN Vitamin D-3 (Cholecalciferol) 1,000 Unit Tab 5,000 Units PO DAILY Trazodone (Trazodone HCl) 150 Mg Tab 150 Mg PO HS Lexapro (Escitalopram Oxalate) 10 Mg Tab 10 Mg PO DAILY Eliquis (Apixaban) 2.5 Mg Tab 2.5 Mg PO BID Clonidine (Clonidine HCl) 0.3 Mg Tab 0.3 Mg PO BID Diltiazem ER 24 HR 240 Mg Caper 240 Mg PO DAILY Hydralazine (Hydralazine HCl) 50 Mg Tab 50 Mg PO TID Take with a meal Metoprolol Tartrate 50 Mg Tab 50 Mg PO BID Narrative Medication List of her home medications reviewed from the nursing note. Review of Systems ROS Limitations: Altered Mental Status Except as stated in HPI: all other systems reviewed are Neg Physical Exam Exam Limitations: Altered Mental Status Narrative GENERAL: Lethargic, obese, slurred speech SKIN: Warm and dry. HEAD: Atraumatic. Normocephalic. EYES: Pupils equal and round. No scleral icterus. No injection or drainage. ENT: No nasal bleeding or discharge. Mucous membranes pink and moist. NECK: Trachea midline. No JVD. CARDIOVASCULAR: Regular rate and rhythm. No murmur appreciated. RESPIRATORY: No accessory muscle use. Decreased breath sounds with fine crackles in the left basilar area. GASTROINTESTINAL: Abdomen soft, non-tender, nondistended. Hepatic and splenic margins not palpable. MUSCULOSKELETAL: No obvious deformities. No clubbing. No cyanosis. No edema. NEUROLOGICAL: GCS of 12, speech, patient has a left facial droop which as per the family to the paramedics is chronic PSYCHIATRIC: Unable to assess Data Data Last Documented VS Orders Electrocardiogram (3/1/17 ) Ammonia (07/21/16 15:57) Complete Blood Count With Diff (07/21/16 15:57) Comprehensive Metabolic Panel (07/21/16 15:57) Creatine Kinase (Cpk) (07/21/16 15:57) Prothrombin Time / Inr (Pt) (07/21/16 15:57) Troponin I (07/21/16 15:57) Thyroid Stimulating Hormone (07/21/16 15:57) Lactic Acid Sepsis Protocol (07/21/16 15:57) Urinalysis - C+S If Indicated (07/21/16 15:57) Arterial Blood Gas (Abg) (07/21/16 15:57) Blood Culture (07/21/16 15:57) Chest, Single Ap (07/21/16 15:57) Ct Brain W/O Iv Contrast(Rout) (07/21/16 15:57) Blood Glucose (07/21/16 15:57) Ecg Monitoring (07/21/16 15:57) Iv Access Insert/Monitor (07/21/16 15:57) Oximetry (07/21/16 15:57) Sodium Chloride 0.9% Flush (Ns Flush) (07/21/16 16:00) Drug Screen, Random Urine (07/21/16 15:57) Alcohol (Ethanol) (07/21/16 15:57) Ct Abd/Pel W/O Iv Contrast (07/21/16 ) Urinary Catheter Insert/Apply (07/21/16 16:00) Piperacil-Tazo 4.5 Gm Premix (Zosyn 4.5 (07/21/16 16:45) Vancomycin Inj (Vancomycin Inj) (07/21/16 16:45) Etomidate Inj (Amidate Inj) (07/21/16 17:54) Etomidate Inj (Amidate Inj) (07/21/16 18:00) Rocuronium Inj (Zemuron Inj) (07/21/16 18:00) Propofol 1000 Mg/100 Ml Inj (Diprivan 10 (07/21/16 18:00) ^ Infusion (07/21/16 17:53) RASS (07/21/16 17:53) Neurological Rass Scale ALLISON.Q2H (07/21/16 17:53) Sodium Chlor 0.9% 1000 Ml Inj (Ns 1000 M (07/21/16 18:00) Julio-Gastric Tube Insert/Mon (07/21/16 17:53) Succinylcholine Inj (Quelicin Inj) (07/21/16 17:54) Chest, Single Ap (07/21/16 ) Arterial Blood Gas (Abg) (07/21/16 ) Admit Order (Ed Use Only) (07/21/16 18:28) CKMB (07/21/16 17:30) CKMB% (07/21/16 17:30) Labs MDM Medical Decision Making Medical Screen Exam Complete: Yes Emergency Medical Condition: Yes Medical Record Reviewed: Yes Interpretation(s) Twelve-lead EKG was reviewed by me. Paced rhythm. Heart rate of 73 bpm. Differential Diagnosis Intracranial bleed, sepsis, electrolyte abnormalities Narrative Course 4:54 PM chest x-ray shows a left lobar infiltrate. Head CT is within normal limits. CT abdomen was ordered which showed motion artifact but overall no significant abnormalities. Patient was a hard stick. After I put a line in blood was obtained. Currently awaiting for the blood test and urinalysis. I have ordered antibiotic which she is getting. Patient will require admission. 5:55 PM patient's current mental status is GCS of 10. I just spoke with the family. Her daughter and son are here. Given her mental status I'm concerned about her lack of ability to protect her airway and I would like to intubate her at this point. They're okay with the plan. Patient is a full code. Awaiting for the blood test and urinalysis result. Critical Care Narrative Aggregate critical care time was 60 minutes. Time to perform other separately billable procedures was not included in the critical care time. My time did not include minutes spent treating any other patients simultaneously or on activities that did not directly contribute to the patient's treatment. The services I provided to this patient were to treat and/or prevent clinically significant deterioration that could result in: Sepsis, altered mental status, respiratory failure, sepsis protocol, ventilator management I provided critical care services requiring my management, as noted below: Chart data review, documentation time, medication orders and management, vital sign assessments/reviewing monitor data, ordering and reviewing lab tests, ordering and interpreting/reviewing x-rays and diagnostic studies, care of the patient and discussion of the patient with the admitting physicians. Procedures Procedure Narrative Emergency department US guided peripheral IV was performed with patient consent. Linear probe was used in the transverse views of the peripheral vein to assist with vascular access. 20-gauge Angiocath was inserted into the left EJ After the risks and benefits were discussed the following procedure was performed: INTUBATION: The patient was put in optimal position for the procedure. Rapid sequence intubation was initiated by me using 20 milligrams of etomidate IV and 100 milligrams of rocuronium IV. The patient was intubated with a 7.5 cuffed endotracheal tube. Tube placement was confirmed by visualization of the tube and balloon passing through the cords, capnometry and subsequent chest x-ray. Breath sounds were equal and well aerated bilaterally postintubation. No breath sounds over stomach. Patient tolerated procedure well. CENTRAL VENOUS LINE: The site was prepped with Betadine and sterilely draped. It was infiltrated with 1% lidocaine plain. The deep vein was cannulated using normal Seldinger technique. A triple lumen central line was placed in the left subclavian site and secured with simple interrupted suture. The site was sterilely dressed. The patient tolerated the procedure well. EKG Prior to Arrival: Yes Physician Communication Physician Communication Dr. Cardenas Diagnosis Primary Impression: Sepsis Qualified Code: A41.9 - Sepsis, due to unspecified organism Additional Impressions: Pneumonia Qualified Code: J18.1 - Pneumonia of left lower lobe due to infectious organism Altered mental status Qualified Code: R40.1 - Stupor Respiratory failure Qualified Code: J96.01 - Acute respiratory failure with hypoxia and hypercapnia Admitting Information Admitting Physician Requests: Admit Mariah Villagomez MD Jul 21, 2016 16:43 Blood Gas Liter Flow 2 L/M White Blood Count 7.1 TH/MM3 Red Blood Count 3.90 MIL/MM3 Hemoglobin 10.0 GM/DL Hematocrit 29.6 % Mean Corpuscular Volume 75.8 FL Mean Corpuscular Hemoglobin 25.7 PG Mean Corpuscular Hemoglobin 33.9 % Concent Red Cell Distribution Width 17.0 % Platelet Count 223 TH/MM3 Mean Platelet Volume 7.8 FL Neutrophils (%) (Auto) 83.2 % Lymphocytes (%) (Auto) 5.1 % Monocytes (%) (Auto) 11.5 % Eosinophils (%) (Auto) 0.0 % Basophils (%) (Auto) 0.2 % Neutrophils # (Auto) 5.9 TH/MM3 Lymphocytes # (Auto) 0.4 TH/MM3 Monocytes # (Auto) 0.8 TH/MM3 Eosinophils # (Auto) 0.0 TH/MM3 Basophils # (Auto) 0.0 TH/MM3 CBC Comment DIFF FINAL Differential Comment Prothrombin Time 14.0 SEC Prothromb Time International 1.3 RATIO Ratio Sodium Level 140 MEQ/L Potassium Level 3.7 MEQ/L Chloride Level 99 MEQ/L Carbon Dioxide Level 30.1 MEQ/L Anion Gap 11 MEQ/L Blood Urea Nitrogen 22 MG/DL Creatinine 1.46 MG/DL Estimat Glomerular Filtration 41 ML/MIN Rate Random Glucose 99 MG/DL Lactic Acid Level 1.0 mmol/L Calcium Level 9.7 MG/DL Total Bilirubin 0.9 MG/DL Aspartate Amino Transf 42 U/L (AST/SGOT) Alanine Aminotransferase 52 U/L (ALT/SGPT) Alkaline Phosphatase 116 U/L Ammonia 15 MCMOL/L Total Creatine Kinase 249 U/L Creatine Kinase MB 4.6 NG/ML Creatine Kinase MB % 1.8 % Troponin I 0.58 NG/ML Total Protein 6.9 GM/DL Albumin 3.4 GM/DL Thyroid Stimulating Hormone 4.360 uIU/ML 3rd Gen Ethyl Alcohol Level LESS THAN 3 MG/DL [facility] Medical Decision Making Medical Screen Exam Complete: Yes Emergency Medical Condition: Yes Medical Record Reviewed: Yes Interpretation(s) Twelve-lead EKG was reviewed by me. Paced rhythm. Heart rate of 73 bpm. Differential Diagnosis Intracranial bleed, sepsis, electrolyte abnormalities Narrative Course 4:54 PM chest x-ray shows a left lobar infiltrate. Head CT is within normal limits. CT abdomen was ordered which showed motion artifact but overall no significant abnormalities. Patient was a hard stick. After I put a line in blood was obtained. Currently awaiting for the blood test and urinalysis. I have ordered antibiotic which she is getting. Patient will require admission. 5:55 PM patient's current mental status is GCS of 10. I just spoke with the family. Her daughter and son are here. Given her mental status I'm concerned about her lack of ability to protect her airway and I would like to intubate her at this point. They're okay with the plan. Patient is a full code. Awaiting for the blood test and urinalysis result. Procedures Procedure Narrative Emergency department US guided peripheral IV was performed with patient consent. Linear probe was used in the transverse views of the peripheral vein to assist with vascular access. 20-gauge Angiocath was inserted into the left EJ After the risks and benefits were discussed the following procedure was performed: INTUBATION: The patient was put in optimal position for the procedure. Rapid sequence intubation was initiated by me using 20 milligrams of etomidate IV and 100 milligrams of rocuronium IV. The patient was intubated with a 7.5 cuffed endotracheal tube. Tube placement was confirmed by visualization of the tube and balloon passing through the cords, capnometry and subsequent chest x-ray. Breath sounds were equal and well aerated bilaterally postintubation. No breath sounds over stomach. Patient tolerated procedure well. CENTRAL VENOUS LINE: The site was prepped with Betadine and sterilely draped. It was infiltrated with 1% lidocaine plain. The deep vein was cannulated using normal Seldinger technique. A triple lumen central line was placed in the left subclavian site and secured with simple interrupted suture. The site was sterilely dressed. The patient tolerated the procedure well. EKG Prior to Arrival: Yes Physician Communication Physician Communication Dr. Cardenas Diagnosis Primary Impression: Sepsis Qualified Code: A41.9 - Sepsis, due to unspecified organism Additional Impressions: Pneumonia Qualified Code: J18.1 - Pneumonia of left lower lobe due to infectious organism Altered mental status Qualified Code: R40.1 - Stupor Respiratory failure Qualified Code: J96.01 - Acute respiratory failure with hypoxia and hypercapnia Admitting Information Admitting Physician Requests: it Mariah Villagomez MD Jul 21, 2016 16:43
[2016-07-21] MEDS ORDERED: VANCOMYCIN INJ 1,000 MG in SODIUM CHLOR 0.9% 250 ML INJ 250 ML IV ONE (16:45)
[2016-07-21] MEDS ORDERED: PIPERACIL-TAZO 4.5 GM PREMIX 100 ML IV ONE (16:45)
--- NOTE | 2016-07-21 17:00 | RADRPT ---
EXAM DATE/TIME: 07/21/2016 16:31 [facility] COMPARISON: CT BRAIN W/O CONTRAST, June 27, 2016, 13:57. INDICATIONS : Altered mental status. RADIATION DOSE: 50.40 CTDIvol (mGy) MEDICAL HISTORY : Cerebrovascular disease. Cardiovascular disease Hypertension. SURGICAL HISTORY : Hysterectomy. ENCOUNTER: Initial ACUITY: 1 day PAIN SCALE: Non-responsive LOCATION: Cranial TECHNIQUE: Multiple contiguous axial images were obtained of the head. Using automated exposure control and adjustment of the mA and/or kV according to patient size, radiation dose was kept as low as reasonably achievable to obtain optimal diagnostic quality images. FINDINGS: Moderate basal ganglia calcifications are evident. There is central and cortical atrop hy with dilatation of ventricular and sulcal spaces. There is no parenchymal hemorrhage, acute infarc tion or mass lesion. There are no extra-axial fluid collections appreciated. CONCLUSION: 1. Atrophy with basal ganglia calcifications. 2. Negative for an acute process. Kwaku Gutiérrez MD FACR on July 21, 2016 at 16:51 Board Certified Radiologist. This report was verified electronically.
--- NOTE | 2016-07-21 17:06 | RADRPT ---
EXAM DATE/TIME: 07/21/2016 16:34 [facility] COMPARISON: No previous studies available for comparison. INDICATIONS : Abdominal pain. ORAL CONTRAST: No oral contrast ingested. RADIATION DOSE: 15.39 CTDIvol (mGy) MEDICAL HISTORY : Hypertension. Cardiovascular disease SURGICAL HISTORY : Hysterectomy. ENCOUNTER: Initial ACUITY: 1 day PAIN SCALE: Non-responsive LOCATION: Bilateral lower quadrant TECHNIQUE: Volumetric scanning of the abdomen and pelvis was performed. Using automated exposure control and adjustment of the mA and/or kV according to patient size, radiation dose was kept as low as reasonably achievable to obtain optimal diagnostic quality images. FINDINGS: There are consolidative changes present in the left lower lobe. The right lung is alquita r. The heart is enlarged. The liver and spleen identified are free of focal defects. There is no ascit es. There is no free air however extensive motion artifact is present that would make detection of mccallum btle free air difficult. Right and left kidneys are grossly unremarkable. Pelvic contents show a large amount of stool in the colon. CONCLUSION: 1. Severely limited exam because of patient motion. Free air and/or abscess in the abdomen cannot be excluded. Lack of intravenous contrast makes detection of subtle bowel pathology difficult. 2. Large bolus of stool is seen in the rectum. 3. Consolidative changes are seen in the left base. Kwaku Gutiérrez MD FACR on July 21, 2016 at 16:56 Board Certified Radiologist. This report was verified electronically.
[2016-07-21 17:53] LABS: AUTOMATED NEUTROPHIL # 5.9 TH/MM3 (1.8-7.7); BASOPHIL % 0.2 % (0.0-2.0); HEMATOCRIT 29.6 % (35.0-46.0); HEMO FLAGS DIFF FINAL; LYMPH % 5.1 % (9.0-44.0); LYMPHOCYTE # 0.4 TH/MM3 (1.0-4.8); MEAN CELL VOLUME 75.8 FL (80.0-100.0); MEAN CORPUSCULAR HEMOGLOBIN 25.7 PG (27.0-34.0); MEAN CORPUSCULAR HGB CONC 33.9 % (32.0-36.0); MONO % 11.5 % (0.0-8.0); NEUT % 83.2 % (16.0-70.0); PLATELET COUNT 223 TH/MM3 (150-450); WHITE BLOOD COUNT 7.1 TH/MM3 (4.0-11.0)
[2016-07-21] MEDS ORDERED: ETOMIDATE 20 MG/10 ML VIAL ONE (17:54)
[2016-07-21] MEDS ORDERED: SUCCINYLCHOLINE CHLORIDE 200 MG/10 ML VIAL ONE (17:54)
[2016-07-21 17:59] LABS: INTERNATIONAL NORMALIZED RATIO 1.3 RATIO
[2016-07-21] MEDS ORDERED: ROCURONIUM INJ 100 MG/10 ML VIAL IV ONE (18:00)
[2016-07-21] MEDS ORDERED: ETOMIDATE 20 MG/10 ML VIAL IV PUSH ONE (18:00)
[2016-07-21] MEDS ORDERED: SODIUM CHLOR 0.9% 1000 ML INJ 1,000 ML IV ONE (18:00)
[2016-07-21 18:07] LABS: ALT (GPT) 52 U/L (10-53); ANION GAP 11 MEQ/L (5-15); AST (GOT) 42 U/L (15-37); BICARBONATE 30.1 MEQ/L (21.0-32.0); BLOOD UREA NITROGEN 22 MG/DL (7-18); CHLORIDE 99 MEQ/L (98-107); GLOMERULAR FILTRATION RATE 41 ML/MIN (>89); POTASSIUM 3.7 MEQ/L (3.5-5.1); SODIUM (NA) 140 MEQ/L (136-145)
[2016-07-21 18:16] LABS: ALKALINE PHOSPHATASE 116 U/L (45-117); CREATINE KINASE 249 U/L (26-192); TOTAL BILIRUBIN ADULT 0.9 MG/DL (0.2-1.0)
[2016-07-21] MEDS: PROPOFOL 1000 MG/100 ML INJ 100 ML IV SCH (18:16)
[2016-07-21 18:48] LABS: CKMB 4.6 NG/ML (0.5-3.6)
[2016-07-21 19:07] LABS: AMPHETAMINE, URINE NEG (NEG); BARBITURATES, URINE NEG (NEG); COCAINE, URINE NEG (NEG)
[2016-07-21 19:09] LABS: BLOOD, URINE SMALL (NEG); GLUCOSE,URINE NEG (NEG); KETONE, URINE NEG (NEG); MUCUS URINE FEW /lpf (OCC); NITRITE,URINE NEG (NEG); SQUAMOUS EPITHELIAL CELL URINE 2 /hpf (0-5); URINE COLOR LIGHT-YELLOW (YELLW/STRAW)
[2016-07-21 19:10] LABS: COMMENT (UR) CATH-CULTURE IND; CULTURE IF INDICATED CATH CULTURE IND
[2016-07-21] MEDS ORDERED: MIDAZOLAM HCL 2 MG/2 ML VIAL IV PUSH ONE (19:15)
--- NOTE | 2016-07-21 19:42 | RADRPT ---
EXAM DATE/TIME: 07/21/2016 18:58 [facility] COMPARISON: CHEST SINGLE AP, July 21, 2016, 16:14. INDICATIONS : ET and OG tube placement. MEDICAL HISTORY : Hypertension. Cardiovascular disease. SURGICAL HISTORY : Pacemaker. ENCOUNTER: Initial ACUITY: 1 day PAIN SCORE: Non-responsive. LOCATION: Bilateral chest FINDINGS: Right subclavian centimeters catheter, orogastric tube and endotracheal tubes have been placed and ar e in good position. There is improved lung aeration. There is no evidence of pneumothorax. Bilateral patchy airspace disease with significant left basilar consolidation remains evident. Heart is moderately enlarged. AICD devices in stable position. CONCLUSION: Satisfactory position of Central venous catheter, orogastric tube and endotracheal tu be. Bilateral airspace disease with significant left basilar consolidation. No evidence of pneumothorax. Cardiomegaly. Mc Perez MD on July 21, 2016 at 19:38 Board Certified Radiologist. This report was verified electronically.
[2016-07-21 19:53] LABS: BLOOD GAS BASE EXCESS 3.6 mmol/L (-2-2); BLOOD GAS CARBOXYHEMOGLOBIN 2.2 % (0-4); BLOOD GAS HCO3 26 mmol/L (22-26); BLOOD GAS METHEMOGLOBIN 1.7 % (0-2); BLOOD GAS O2 HGB SATURATION 97 % (90-100); BLOOD GAS OXYGEN CONTENT 15.9 Vol % (12.0-20.0); BLOOD GAS PCO2 28 mmHg (38-42); BLOOD GAS PO2 395 mmHG (61-120); TEMP CORR TO 98.6
[2016-07-21 19:54] LABS: CRITICAL VALUE YES; DRAW SITE RT RADIAL; FIO2 100 %; NUMBER OF ARTERIAL PUNCTURES 1; OXYGEN DEVICE VENTILATOR; STAT YES; ULNAR PULSE PRESENT; VENT SETTINGS VAC/16/550/PEEP+5
[2016-07-21] MEDS ORDERED: LABETALOL HCL 100 MG/20 ML VIAL IV PUSH PRN (20:15)
--- NOTE | 2016-07-21 20:20 | HHI.HP ---
HPI Service Critical Care Medicine Primary Care Physician Non-Staff Admission Diagnosis Respiratory Failure, Sepsis, AMS, Pneumonia Diagnosis: Travel History International Travel<30 Days: No Contact w/Intl Traveler <30 Da: No Traveled to Known Affected Are: No History of Present Illness 86 yo AAF with PMH of HTN, dyslipidemia, Atrial fibrillation s/p pacemaker on anticoagulation with Eliquis, CKD stage III who presented to [facility] ED from home after her daughter and son summoned [facility] for altered mental status. She was intubated upon arrival for airway protection. I called her daughter to obtain history. Patient was most recently admitted to [facility] on with chest pain and acute on chronic systolic heart failure. She underwent pacemaker exchange to biventricular pacer with defibrillator . Upon discharge she was sent to the [facility] rehabilitation 07/03/16. Reportedly she was able to ambulate into rehabilitation with a walker according to her daughter. However, her condition has reportedly deteriorated at rehabilitation and she was not able to participate in physical therapy after the first couple of days there. She was no longer able to ambulate. Her daughter came down from [place] to pick her up from rehab when she was discharged 07/19/16. Her daughter and son were caring for her at a private residence. She was moaning throughout the night 07/19/16. On 07/20/16 her daughter noticed she had "rattling in her chest". She was able to speak some and indicated to her daughter that she did not want to be taken back to [place] and that she didn't feel like eating. She had no noted seizure activity. Her family was not able to discern any weakness, although they did say they thought her left arm dropped down when they picked it up. They deny prior h/o stroke. Workup in ED reveals CXR with left lower lobe consolidation. CT brain showed no acute abnormality. CT abdomen and pelvis demonstrated no acute abnormality with large stool in the rectum. Exam was limited due to motion artifact. Troponin is elevated 0.58. EKG is irregular, paced. She has been sedated on propofol. Blood pressure is 238/ 113. She is withdrawing weakly with all extremities. Her daughter also expresses concern that she may have been medicated with narcotics while she was in the alf however she states she has not received any since she was discharged 07/19. Review of Systems ROS Limitations: Intubated, Altered Mental Status Past Family Social History Allergies: Coded Allergies: ENEDELIA Inhibitors (Verified Adverse Reaction, Unknown, COUGH, 07/21/16) Past Medical History Hypertension Chronic kidney disease stage III Dyslipidemia Atrial fibrillation status post pacemaker/ICD Past Surgical History Pacemaker Hysterectomy Reported Medications Ramipril 5 mill grams by mouth daily Eliquis 0.5 mill grams by mouth twice a day Lexapro 10 DAILY Trazodone 150 mg by mouth daily at bedtime Ativan 0.5 mill grams by mouth every 6 hours when necessary Metoprolol 50 g by mouth twice a day Diltiazem ER 240 mill grams by mouth daily Dulcolax 10 mg TX Clonidine 0.3 mg by mouth twice a day Hydralazine 50 mg by mouth 3 times a day Vitamin D 3 5000 units by mouth daily Family History Father had diabetes and diabetic retinopathy Mother of myocardial infarction in her late 80s Social History She was walking with a walker at baseline prior to admission in early June Physical Exam Vital Signs Vital Signs Date Time Temp Pulse Resp B/P Pulse Ox O2 Delivery O2 Flow Rate FiO2 07/21/16 19:03 98.6 93 16 224/111 100 Ventilator 100 07/21/16 18:07 16 100 Ventilator 100 07/21/16 18:07 100 07/21/16 18:05 84 20 164/102 97 Nasal Cannula 2 07/21/16 15:59 71 20 96 Nasal Cannula 2 07/21/16 15:55 99.6 71 20 164/101 96 Physical Exam Temp 98.8 pulse 80s and A. fib blood pressure 238/113 sats 100% on mechanical ventilation GENERAL: Elderly critically ill appearing female who is orotracheally intubated. She has been on sedation with propofol 10 g per KG per minute which was held. SKIN: Warm and dry. HEAD: Atraumatic. Normocephalic. EYES: She appears to have bilateral cataracts with pupils 3 mm and reactive bilaterally. No scleral icterus. No injection or drainage. ENT: No nasal bleeding or discharge. Mucous membranes pink and moist. NECK: Trachea midline. No JVD. CARDIOVASCULAR: Irregular, atrial fibrillation on the monitor with rate in 80s no murmurs rubs or gallops appreciated.. Pacemaker scarring left chest. RESPIRATORY: Equal breath sounds bilaterally with left basilar Rales areas occasional rhonchi. No wheeze GASTROINTESTINAL: Abdomen soft, non-tender, nondistended. She has a surgical scar in the lower abdomen that is well-healed. Bowel sounds present. MUSCULOSKELETAL: Extremities without clubbing, cyanosis, or edema. No obvious deformities. NEUROLOGICAL: No eye opening to deep noxious stimuli. Gaze is conjugate but she does not track. Withdraws with all extremities very weakly. Does not follow commands. Babinski upgoing on the right. No clonus. Laboratory Laboratory Tests Test 07/21/16 07/21/16 07/21/16 07/21/16 15:57 16:03 17:30 18:50 Urine Color LIGHT-YELLOW Urine Turbidity HAZY Urine pH 7.0 Urine Specific Malone 1.007 Urine Protein 30 Urine Glucose (UA) NEG Urine Ketones NEG Urine Occult Blood SMALL Urine Nitrite NEG Urine Bilirubin NEG Urine Urobilinogen LESS THAN 2.0 Urine Leukocyte Esterase SMALL Urine RBC 6 Urine WBC 8 Urine Squamous Epithelial 2 Cells Urine Mucus FEW Microscopic Urinalysis Comment CATH-CULTURE IND Blood Gas Puncture Site RT RADIAL Blood Gas Patient Temperature 98.6 Blood Gas HCO3 28 Blood Gas Base Excess 3.8 Blood Gas Oxygen Saturation 90 Arterial Blood pH 7.44 Arterial Blood Partial 41 Pressure CO2 Arterial Blood Partial 74 Pressure O2 Arterial Blood Oxygen Content 13.1 Arterial Blood 2.5 Carboxyhemoglobin Arterial Blood Methemoglobin 1.9 Blood Gas Hemoglobin 10.3 Oxygen Delivery Device NASAL CANNULA Blood Gas Liter Flow 2 White Blood Count 7.1 Red Blood Count 3.90 Hemoglobin 10.0 Hematocrit 29.6 Mean Corpuscular Volume 75.8 Mean Corpuscular Hemoglobin 25.7 Mean Corpuscular Hemoglobin 33.9 Concent Red Cell Distribution Width 17.0 Platelet Count 223 Mean Platelet Volume 7.8 Neutrophils (%) (Auto) 83.2 Lymphocytes (%) (Auto) 5.1 Monocytes (%) (Auto) 11.5 Eosinophils (%) (Auto) 0.0 Basophils (%) (Auto) 0.2 Neutrophils # (Auto) 5.9 Lymphocytes # (Auto) 0.4 Monocytes # (Auto) 0.8 Eosinophils # (Auto) 0.0 Basophils # (Auto) 0.0 CBC Comment DIFF FINAL Differential Comment Prothrombin Time 14.0 Prothromb Time International 1.3 Ratio Sodium Level 140 Potassium Level 3.7 Chloride Level 99 Carbon Dioxide Level 30.1 Anion Gap 11 Blood Urea Nitrogen 22 Creatinine 1.46 Estimat Glomerular Filtration 41 Rate Random Glucose 99 Lactic Acid Level 1.0 Calcium Level 9.7 Total Bilirubin 0.9 Aspartate Amino Transf 42 (AST/SGOT) Alanine Aminotransferase 52 (ALT/SGPT) Alkaline Phosphatase 116 Ammonia 15 Total Creatine Kinase 249 Creatine Kinase MB 4.6 Creatine Kinase MB % 1.8 Troponin I 0.58 Total Protein 6.9 Albumin 3.4 Thyroid Stimulating Hormone 4.360 3rd Gen Ethyl Alcohol Level LESS THAN 3 Urine Opiates Screen NEG Urine Barbiturates Screen NEG Urine Amphetamines Screen NEG Urine Benzodiazepines Screen NEG Urine Cocaine Screen NEG Urine Cannabinoids Screen NEG Test 07/21/16 19:48 Blood Gas Puncture Site RT RADIAL Blood Gas Patient Temperature 98.6 Blood Gas HCO3 26 Blood Gas Base Excess 3.6 Blood Gas Oxygen Saturation 97 Arterial Blood pH 7.58 Arterial Blood Partial 28 Pressure CO2 Arterial Blood Partial 395 Pressure O2 Arterial Blood Oxygen Content 15.9 Arterial Blood 2.2 Carboxyhemoglobin Arterial Blood Methemoglobin 1.7 Blood Gas Hemoglobin 11.0 Oxygen Delivery Device VENTILATOR Blood Gas Ventilator Setting VAC/16/550/PEEP+5 Blood Gas Inspired Oxygen 100 Date/Time Procedure Status Source Growth 07/21/16 17:30 Aerobic Blood Culture Received Blood Peripheral Pending 07/21/16 17:30 Anaerobic Blood Culture Received Blood Peripheral Pending 07/21/16 15:57 Urine Culture Received Urine Catheterized Urine Pending Result Diagram: 07/21/16 1730 07/21/16 1730 Assessment and Plan Assessment and Plan NEURO: AMS secondary to hypertensive encephalopathy and toxic/metabolic secondary to pneumonia. Ischemic stroke possible though unable to obtain MRI due to pacemaker. Unable to obtain CTA due to CKD. Symptoms have been subacute over 2- 3 days. At this point BP is 238/113. Has not had home antihypertensive doses this evening so will resume and evaluate trend. May need continuous drip to control blood pressure. Frequent neurochecks q1 hour during BP lowering and will adjust parameters if hemiplegia or evidence of ischemic stroke apparent. Bilateral carotids, lipids. Continue anticoagulation with Eliquis for A fib. RESP: Acute respiratory failure Vent adjusted for respiratory alkalosis. ACV tidal 1/4/75/rate 12/P5/FiO2 60%. Wean FiO2 for sat greater than or equal to 92%. CV: Atrial fibrillation Hypertension Continue Eliquis for anticoagulation for atrial fibrillation Resume antihypertensives with hydralazine 50 mg per tube every 8 hours, metoprolol 50 every 12, Cardizem 60 every 6, clonidine 0.[address] art line for hemodynamic monitoring. Use labetalol as needed for systolic blood pressure greater than 220/110 initially and monitor clinically after BP lowering for evidence of neuro change/ischemia. May need nicardipine drip to achieve BP targets. GI: OG tube to low intermittent wall suction. We'll initiate enteral feeds in 24 hours if stable. FEN/RENAL: CKD stage III Coates in place. Monitor intake and output. Monitor electrolytes and replace as indicated ID: Healthcare associated pneumonia Chest x-ray with left lower lobe infiltrate. Recently at alf. Urinalysis with small LE positive white blood cells Follow-up blood cultures and urine culture. Send sputum culture. Send urine Legionella and pneumococcal antigen. Empiric coverage for HCAP with Zosyn and vancomycin. HEME: Scientologist Patient's daughter states she is Scientologist and she does not accept blood products. ENDO: Euglycemic. TSH elevated. Check free T4 PROPH: Protonix 40 mg's IV daily for stress ulcer prophylaxis. Continue eliquis which will provide DVT prophylaxis. SCDs ACCESS: Right leg and central venous line placed by ED physician 07/21/[address] arterial line. Patient's daughter, Michelle Lora, states she patient does not have a living will to her knowledge. Her daughter states she will check with her other siblings. She states the patient is full code to her knowledge but states that her mother never spoke of her wishes with her. Michelle states her mom should be designated full code. CCT 60 minutes Gisel Cardenas MD Jul 21, 2016 20:20
[2016-07-21] MEDS ORDERED: SODIUM CHLORIDE 0.9% FLUSH 5 ML FLUSH IV FLUSH PRN (20:45)
[2016-07-21] MEDS ORDERED: POTASSIUM PHOSPHATE MONOBASIC 500 MG TAB PO/TUBE PRN (20:45)
[2016-07-21] MEDS ORDERED: SENNOSIDES 8.6 MG TAB TUBE PRN (20:45)
[2016-07-21] MEDS ORDERED: POTASSIUM CHLOR 40 MEQ PREMIX 100 ML IV PRN (20:45)
[2016-07-21] MEDS ORDERED: POTASSIUM PHOSPHATE MONOBASIC 500 MG TAB PO PRN (20:45)
[2016-07-21] MEDS ORDERED: PROPOFOL 1000 MG/100 ML INJ 100 ML IV SCH (20:45)
[2016-07-21] MEDS ORDERED: MAGNESIUM SULFATE INJ 4 GM in SODIUM CHLORIDE 0.9% INJ 92 ML IV PRN (20:45)
[2016-07-21] MEDS ORDERED: POTASSIUM CHLOR 20 MEQ PREMIX 100 ML IV PRN ×2 (20:45)
[2016-07-21] MEDS ORDERED: MAGNESIUM SULFATE INJ 2 GM in SODIUM CHLORIDE 0.9% INJ 96 ML IV PRN (20:45)
[2016-07-21] MEDS ORDERED: POTASSIUM PHOSPHATE INJ 30 MMOL in SODIUM CHLOR 0.9% 250 ML INJ 250 ML IV PRN (20:45)
[2016-07-21] MEDS ORDERED: MAGNESIUM OXIDE 400 MG TAB PO PRN (20:45)
[2016-07-21] MEDS ORDERED: CHLORHEXIDINE GLUCONATE 2 % 1 PACK (2 CLOTHS) TOP PRN (20:45)
[2016-07-21] MEDS ORDERED: POTASSIUM CL 40 MEQ/30 ML LIQ UDC PO/TUBE PRN ×2 (20:45)
[2016-07-21] MEDS ORDERED: MISCELLANEOUS NURSING INFORMATION XX SCH (20:45)
[2016-07-21] MEDS ORDERED: SODIUM PHOSPHATE INJ 30 MMOL in SODIUM CHLOR 0.9% 250 ML INJ 240 ML IV PRN (20:45)
[2016-07-21] MEDS ORDERED: ONDANSETRON HCL 4 MG/2 ML VIAL IV PRN (20:45)
[2016-07-21] MEDS: BISACODYL 10 MG SUPP RECTAL ONE (21:00)
[2016-07-21] MEDS ORDERED: Vancomycin Consult Pharmacy 1 EA OTHER SCH (21:00)
[2016-07-21] MEDS: DOCUSATE SODIUM 100 MG CAP TUBE SCH (21:00)
[2016-07-21 21:36] LABS: BLOOD GAS BASE EXCESS 3.6 mmol/L (-2-2); BLOOD GAS CARBOXYHEMOGLOBIN 2.2 % (0-4); BLOOD GAS HCO3 27 mmol/L (22-26); BLOOD GAS METHEMOGLOBIN 1.8 % (0-2); BLOOD GAS O2 HGB SATURATION 92 % (90-100); BLOOD GAS OXYGEN CONTENT 13.9 Vol % (12.0-20.0); BLOOD GAS PCO2 33 mmHg (38-42); BLOOD GAS PO2 79 mmHG (61-120); BLOOD GAS TOTAL HGB 10.6 G/DL (12.0-16.0); TEMP CORR TO 98.6
[2016-07-21 21:37] LABS: CRITICAL VALUE YES; DRAW SITE RT RADIAL; FIO2 60 %; NUMBER OF ARTERIAL PUNCTURES 1; OXYGEN DEVICE VENTILATOR; STAT NO; ULNAR PULSE PRESENT; VENT SETTINGS VAC/16/475/PEEP+5
[2016-07-21] MEDS ORDERED: VANCOMYCIN 500 MG/NS 100 ML IV ONE ×2 (22:00)
[2016-07-21] MEDS: SODIUM CHLOR 0.9% 1000 ML INJ 1,000 ML IV SCH (22:06)
[2016-07-21 22:19] LABS: HDL CHOLESTEROL 53.4 MG/DL (40.0-60.0)
[2016-07-21] MEDS: cloNIDine HCL 0.3 MG TAB TUBE SCH (23:09)
[2016-07-21] MEDS: SODIUM CHLORIDE 0.9% FLUSH 5 ML FLUSH IV FLUSH SCH (23:09)
[2016-07-21] MEDS: DILTIAZEM HCL 60 MG TAB TUBE SCH (23:09)
[2016-07-21] MEDS: METOPROLOL TARTRATE 50 MG TAB TUBE SCH (23:09)
[2016-07-21] MEDS: hydrALAZINE HCL 50 MG TAB TUBE SCH (23:33)
[2016-07-22] VITALS (18 sets, daily range): BP systolic 137–186; BP diastolic 64–89; PULSE 62–94; RESP 12–16; TEMP 96.3–99; O2SAT 100
[2016-07-22] MEDS: BISACODYL 10 MG SUPP RECTAL ONE (00:29)
[2016-07-22] MEDS: DILTIAZEM HCL 60 MG TAB TUBE SCH ×4 (02:02→19:56)
[2016-07-22] MEDS: PIPERACIL-TAZO 2.25 GM PREMIX 50 ML IV SCH ×5 (02:04→23:05)
[2016-07-22] MEDS: PROPOFOL 1000 MG/100 ML INJ 100 ML IV SCH ×2 (02:40→08:08)
[2016-07-22] MEDS: CHLORHEXIDINE GLUCONATE 2 % 1 PACK (2 CLOTHS) TOP SCH (04:00)
[2016-07-22 04:38] LABS: AUTOMATED NEUTROPHIL # 5.4 TH/MM3 (1.8-7.7); BASOPHIL % 0.4 % (0.0-2.0); EOSINOPHIL % 0.4 % (0.0-4.0); HEMATOCRIT 29.4 % (35.0-46.0); HEMO FLAGS DIFF FINAL; LYMPHOCYTE # 0.5 TH/MM3 (1.0-4.8); MEAN CELL VOLUME 75.9 FL (80.0-100.0); MEAN CORPUSCULAR HEMOGLOBIN 25.6 PG (27.0-34.0); MEAN CORPUSCULAR HGB CONC 33.7 % (32.0-36.0); MONO % 9.5 % (0.0-8.0); NEUT % 82.7 % (16.0-70.0); PLATELET COUNT 203 TH/MM3 (150-450); RED BLOOD COUNT 3.87 MIL/MM3 (4.00-5.30); WHITE BLOOD COUNT 6.5 TH/MM3 (4.0-11.0)
[2016-07-22 05:05] LABS: ALKALINE PHOSPHATASE 102 U/L (45-117); ALT (GPT) 47 U/L (10-53); ANION GAP 11 MEQ/L (5-15); AST (GOT) 35 U/L (15-37); BICARBONATE 29.1 MEQ/L (21.0-32.0); BLOOD UREA NITROGEN 20 MG/DL (7-18); CHLORIDE 101 MEQ/L (98-107); GLOMERULAR FILTRATION RATE 46 ML/MIN (>89); MAGNESIUM 1.8 MG/DL (1.5-2.5); SODIUM (NA) 141 MEQ/L (136-145)
[2016-07-22 05:10] LABS: POTASSIUM 2.8 MEQ/L (3.5-5.1)
[2016-07-22] MEDS: hydrALAZINE HCL 50 MG TAB TUBE SCH ×3 (05:43→23:05)
[2016-07-22] MEDS ORDERED: LABETALOL HCL 100 MG/20 ML VIAL IV PUSH PRN (07:00)
[2016-07-22] MEDS ORDERED: niCARdipine INJ 25 MG in SODIUM CHLOR 0.9% 250 ML INJ 250 ML IV SCH (08:00)
[2016-07-22] MEDS: CHLORHEXIDINE 0.12% (ORAL KIT) 15 ML CUP MT SCH ×2 (08:08→19:57)
[2016-07-22] MEDS: SODIUM CHLOR 0.9% 1000 ML INJ 1,000 ML IV SCH ×2 (08:08→19:57)
[2016-07-22] MEDS: METOPROLOL TARTRATE 50 MG TAB TUBE SCH ×2 (09:00→19:56)
[2016-07-22] MEDS: SODIUM CHLORIDE 0.9% FLUSH 5 ML FLUSH IV FLUSH SCH ×2 (09:00→19:57)
[2016-07-22] MEDS: DOCUSATE SODIUM 100 MG CAP TUBE SCH ×2 (09:00→19:56)
[2016-07-22] MEDS: cloNIDine HCL 0.3 MG TAB TUBE SCH ×2 (09:00→19:56)
[2016-07-22] MEDS: PANTOPRAZOLE SODIUM 40 MG VIAL IV SCH (09:32)
[2016-07-22] MEDS: APIXABAN 2.5 MG TABLET OG-TUBE SCH ×2 (09:48→19:56)
[2016-07-22 09:59] LABS: HDL CHOLESTEROL 45.4 MG/DL (40.0-60.0)
[2016-07-22 12:23] LABS: CREATINE KINASE 106 U/L (26-192)
--- NOTE | 2016-07-22 14:59 | HHI.CCPN ---
Subjective Remarks/Hospital Course Hospital Course: 86 yo AAF with PMH of HTN, dyslipidemia, Atrial fibrillation s/p pacemaker on anticoagulation with Eliquis, CKD stage III who presented to [facility] ED from home after her daughter and son summoned [facility] for altered mental status. She was intubated upon arrival for airway protection. I called her daughter to obtain history. Patient was most recently admitted to [facility] on with chest pain and acute on chronic systolic heart failure. She underwent pacemaker exchange to biventricular pacer with defibrillator . Upon discharge she was sent to the [facility] rehabilitation 07/03/16. Reportedly she was able to ambulate into rehabilitation with a walker according to her daughter. However, her condition has reportedly deteriorated at rehabilitation and she was not able to participate in physical therapy after the first couple of days there. She was no longer able to ambulate. Her daughter came down from [place] to pick her up from rehab when she was discharged 07/19/16. Her daughter and son were caring for her at a private residence. She was moaning throughout the night 07/19/16. On 07/20/16 her daughter noticed she had "rattling in her chest". She was able to speak some and indicated to her daughter that she did not want to be taken back to [place] and that she didn't feel like eating. She had no noted seizure activity. Her family was not able to discern any weakness, although they did say they thought her left arm dropped down when they picked it up. They deny prior h/o stroke. Workup in ED reveals CXR with left lower lobe consolidation. CT brain showed no acute abnormality. CT abdomen and pelvis demonstrated no acute abnormality with large stool in the rectum. Exam was limited due to motion artifact. Troponin is elevated 0.58. EKG is irregular, paced. She has been sedated on propofol. Blood pressure is 238/ 113. She is withdrawing weakly with all extremities. Her daughter also expresses concern that she may have been medicated with narcotics while she was in the [facility] however she states she has not received any since she was discharged 07/19. Subjective: 07/22: evaluated patient ~0700. patient persistently encephalopathic and very hypertensive, 210s/110s. called Dr. Pack to discuss care: unable to get MRI due to recent pacemaker placement. will hold sedation, control BP < 180 and watch clinically. Objective Vital Signs Date Time Temp Pulse Resp B/P Pulse Ox O2 Delivery O2 Flow Rate FiO2 07/22/16 14:00 94 07/22/16 12:00 50 07/22/16 12:00 96.3 12 146/67 100 Automatic Cuff 07/22/16 00:28 Ventilator 07/21/16 18:05 2 Intake and Output 07/21/16 07/21/16 07/22/16 08:00 16:00 00:00 Intake Total 120 ml Output Total 900 ml Balance -780 ml Result Diagram: 07/22/16 0415 07/22/16 0415 Other Results Laboratory Tests Test 07/21/16 07/21/16 07/21/16 16:03 19:48 21:31 Blood Gas Puncture Site RT RADIAL RT RADIAL RT RADIAL Blood Gas Patient Temperature 98.6 98.6 98.6 Blood Gas HCO3 28 mmol/L 26 mmol/L 27 mmol/L (22-26) (22-26) (22-26) Blood Gas Base Excess 3.8 mmol/L 3.6 mmol/L 3.6 mmol/L (-2-2) (-2-2) (-2-2) Blood Gas Oxygen Saturation 90 % (90-100) 97 % (90-100) 92 % (90-100) Arterial Blood pH 7.44 7.58 7.51 (7.380-7.420) (7.380-7.420) (7.380-7.420) Arterial Blood Partial 41 mmHg (38-42) 28 mmHg (38-42) 33 mmHg (38-42) Pressure CO2 Arterial Blood Partial 74 mmHG 395 mmHG 79 mmHG Pressure O2 (61-120) (61-120) (61-120) Arterial Blood Oxygen Content 13.1 Vol % 15.9 Vol % 13.9 Vol % (12.0-20.0) (12.0-20.0) (12.0-20.0) Arterial Blood 2.5 % (0-4) 2.2 % (0-4) 2.2 % (0-4) Carboxyhemoglobin Arterial Blood Methemoglobin 1.9 % (0-2) 1.7 % (0-2) 1.8 % (0-2) Blood Gas Hemoglobin 10.3 G/DL 11.0 G/DL 10.6 G/DL (12.0-16.0) (12.0-16.0) (12.0-16.0) Oxygen Delivery Device NASAL CANNULA VENTILATOR VENTILATOR Blood Gas Liter Flow 2 L/M Blood Gas Ventilator Setting VAC/16/550/PEEP+5 VAC/16/475/PEEP+5 Blood Gas Inspired Oxygen 100 % 60 % Objective Remarks GENERAL: Elderly critically ill appearing female who is orotracheally intubated. SKIN: Warm and dry. HEAD: Atraumatic. Normocephalic. EYES: She appears to have bilateral cataracts with pupils 3 mm and reactive bilaterally. No scleral icterus. No injection or drainage. ENT: No nasal bleeding or discharge. Mucous membranes pink and moist. NECK: Trachea midline. No JVD. CARDIOVASCULAR: Irregular, atrial fibrillation on the monitor with rate in 70s no murmurs rubs or gallops appreciated.. Pacemaker scarring left chest. RESPIRATORY: Equal breath sounds bilaterally. No wheeze GASTROINTESTINAL: Abdomen soft, non-tender, nondistended. She has a surgical scar in the lower abdomen that is well-healed. Bowel sounds present. MUSCULOSKELETAL: Extremities without clubbing, cyanosis, or edema. No obvious deformities. NEUROLOGICAL: No eye opening to deep noxious stimuli. Gaze is conjugate but she does not track. Withdraws with all extremities very weakly. Does not follow commands. A/P Assessment and Plan Assessment: 86yF s/p recent pacemaker placement who was in inpatient rehab recently and has had progressive decline and altered mental status, now with acute encephalopathy and hypertensive urgency. She remains critically ill with acute respiratory failure, acute encephalopathy, and likely hypertensive encephalopathy/hypertensive emergency NEURO: AMS secondary to hypertensive encephalopathy and toxic/metabolic secondary to pneumonia. Ischemic stroke possible though unable to obtain MRI due to pacemaker. Unable to obtain CTA due to CKD. Symptoms have been subacute over 2- 3 days. Bilateral carotids, lipids. Continue anticoagulation with Eliquis for A fib. frequent neuro checks neurology consulted: Dr. Morris RESP: Acute hypoxic and hypercarbic respiratory failure Vent Bundle HOB at 30 degrees wean fio2 for goal spo2 > 92% does not meet SBT criteria due to encephalopathy. CV: Atrial fibrillation Hypertensive Urgency Continue Eliquis for anticoagulation for atrial fibrillation Resume antihypertensives with hydralazine 50 mg per tube every 8 hours, metoprolol 50 every 12, Cardizem 60 every 6, clonidine 0.[address] art line for hemodynamic monitoring. Use labetalol as needed for systolic blood pressure greater than 220/110 initially and monitor clinically after BP lowering for evidence of neuro change/ ischemia. will start Cardene drip for goal SBP < 180. GI: OG tube to low intermittent wall suction. We'll initiate enteral feeds in 24 hours if stable. FEN/RENAL: CKD stage III Coates in [address]. Monitor intake and output. Monitor electrolytes and replace as indicated ID: Healthcare associated pneumonia Chest x-ray with left lower lobe infiltrate. Recently at [facility]. Urinalysis with small LE positive white blood cells Follow-up blood cultures and urine culture. f/u sputum culture f/u urine Legionella and pneumococcal antigen. Empiric coverage for HCAP with Zosyn and vancomycin. HEME: Hindu Patient's daughter states she is Hindu and she does not accept blood products. ENDO: Euglycemic. SSI PROPH: Protonix 40 mg's IV daily for stress ulcer prophylaxis. Continue eliquis which will provide DVT prophylaxis. SCDs ACCESS: Right leg and central venous line placed by ED physician 07/21/16. Will place arterial line. Patient's daughter, Michelle Lora, states she patient does not have a living will to her knowledge. Her daughter states she will check with her other siblings. She states the patient is full code to her knowledge but states that her mother never spoke of her wishes with her. Michelle states her mom should be designated full code. This patient remains critically ill with one or more organ systems which are or may become a threat to life. I have spent in excess of 55 minutes discontinuously in the care and management of this patient. This time is exclusive of procedures, and includes, but is not limited to, evaluation of the patient, review of the medical record, discussions with family, consultants, nursing staff, or respiratory therapy, and documentation in the medical record. Alex Dinero MD Jul 22, 2016 14:59
--- NOTE | 2016-07-22 15:00 | PD.PROCEDR ---
Procedure Note Procedure Procedure: Arterial Line Placement Right radial arterial line placement Diagnosis: Acute encephalopathy Indications: Need for beat to beat hemodynamic monitoring Consent: Consent is deemed emergent or medically necessary Description of the Procedure: The right wrist was prepped and draped sterilely. 1% lidocaine was used for local anesthesia. The pulse was located and a needle was advanced into the artery. A 20 gauge, 12 cm catheter was advanced into the artery using a modified Seldinger technique. The catheter was sutured to the skin and a sterile dressing was applied. The catheter was connected to a pressure transducer and an arterial waveform was noted. There were no immediate complications noted. There was minimal EBL. I personally performed the procedure. Alex Dinero MD Jul 22, 2016 15:00
--- NOTE | 2016-07-22 17:02 | MG ---
cc: KY STRAUSS M.D. Lab No: [id number] Date: 07/22/2016 Age: Sex: F Race: TECHNIQUE: 17 channel EEG. DESCRIPTION: The background rhythm reveals generalized slowing in the delta frequency with a burst suppression type pattern. There does appear to be sharp activity more prevalent over the left hemisphere than the right but it is bilaterally in a burst suppression pattern. Occasional muscle artifact is identified. The suppressed part of the activity last 2-4 seconds with a 2-second burst bilaterally. INTERPRETATION: Abnormal study consistent with a severe encephalopathy due to a burst suppression pattern. MD DEEDEE Villegas/INDIO /4:25 PM /4:58 PM
[2016-07-22 17:44] LABS: POTASSIUM 3.2 MEQ/L (3.5-5.1)
[2016-07-22] MEDS: POTASSIUM CHLOR 40 MEQ PREMIX 100 ML IV PRN ×2 (18:40→19:56)
[2016-07-22] MEDS: VANCOMYCIN INJ 1,500 MG in SODIUM CHLORID 0.9% 500 ML INJ 500 ML IV SCH (19:56)
--- NOTE | 2016-07-22 20:32 | MB ---
cc: DEJA PITTMAN DATE OF CONSULTATION 07/22/16 The patient is a woman who was actually seen by Dr. Cali back in 2010 with loss of consciousness, lost control of her bladder, no postictal state. She had an episode 2003 and , one with GI bleeding. She noted no neurological history. CT of the brain was negative. She is oriented x3. He thought maybe cardiogenic syncope. Nevertheless, the patient came into the ER yesterday. Last seen by her family two weeks ago. Spoke with her family a week ago, sounded okay. She usually lives by herself evidently, complaining of getting sick. Family came in and found her unresponsive, some slurred speech. She was leaning over to the right evidently in the last several weeks. MEDICATIONS AT HOME At home, 1. Ativan 0.5 q. six p.r.n. 2. Trazodone. 3. Lexapro 10 mg a day 4. Eliquis 2.5 b.i.d. 5. Clonidine. 6. Diltiazem. 7. Hydralazine 8. Metoprolol. Current meds 1. Vancomycin. 2. Protonix 3. Eliquis 2.5 b.i.d. 4. Trandate. 5. Piperacillin 6. Apresoline Off sedatives for today. SOCIAL HISTORY Not a smoker, not a drinker. Walks with a walker. PAST MEDICAL HISTORY 1. Pacemaker 2. A. Fib, 3. Stage III kidney disease 4. It though she may have had some left arm weakness. 5. Hypertension 6. Dyslipidemia FAMILY HISTORY Positive diabetes, MS. PHYSICAL EXAMINATION VITAL SIGNS: Has really been afebrile the entire time. Blood pressure initially was as high as 228/120, has come down to 150/66. NECK: There is no right carotid bruit. She has a line in the left neck. HEART: She has a pacemaker in and a 1/6 systolic ejection murmur. She does open her eyes. She has some lower lead droopiness which appears to be likely chronic on the right side. Her visual rosado are full. Extraocular is intact. Still on the vent. Could not tell if she has major facial droop or not. She moved her arms and legs somewhat, although weakly but all four did move. The toes were equivocal bilaterally. DTRs are absent bilaterally. She appears to have some increased tone in the left upper extremity, possibly some cogwheeling there. LABORATORY DATA She has anemia 26 on the hematocrit. Otherwise CBC is generally unremarkable. 18 is her sed rate. Hepatitis screen has been negative in the past. JESSICA has been negative in the past. Urine drug screen negative. UA on this admission - 65 white cells, large amount of leuko esterase. Coags were generally unremarkable. Ammonia level normal. CPK normal. LDL cholesterol B12 normal. Basic metabolic profile - potassium 2.8 otherwise near normal. Troponin is up 0.62. TSH mildly elevated. She had an elevated troponin last month. ESPEP in the past has been negative. LFTs normal. ABG 7.44, 41, 74. IMAGING STUDIES CAT scan of the brain I reviewed. EEG showed some burst suppression type pattern, likely medication related. CT scan of the brain I reviewed. There may what appears to be an old left deep MCA infarct versus subacute, hard to say. CAT scan of her brain in 2014 - showed probably an old infarct at that time also similar to the brain CT now. maybe a little bit worse and more distinct now than it was in 2014. She had a carotid ultrasound in 2010 that was negative. She had a CAT scan in June of this year just last month of the brain showed those changes, maybe a little bit more distinct now. IMPRESSION Overall, I thought she looked well. She was following commands, probably will do fine. 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 She does have A. Fib. We will just recheck a carotid ultrasound. Continue her on the Eliquis. The stroke, however, may be old. Also she has just mild carotid stenosis, nothing major in January 2015 so I suspect probably more stroke was from A fib but we will see how she does. I think she will probably do fairly well. We will watch with that increased tone in the left upper extremity in case she has any parkinsonism. We will know more when she gets off the vent and the sedatives are off for a longer time. MD JOSE Locke/ /6:03 PM /7:59 PM
--- NOTE | 2016-07-22 22:16 | RADRPT ---
EXAM DATE/TIME: 07/22/2016 20:38 [facility] COMPARISON: No previous studies available for comparison. INDICATIONS : Transient ischemic attack. MEDICAL HISTORY : Myocardial infarction. Hypercholesterolemia. Hypertension. Syncope. Chest pain. Afib. Acute kidney in jury. UTI. Arthritis. PTSD. Anxiety. Anticoagulant therapy. SURGICAL HISTORY : Pacemaker. Hysterectomy. Cardiac cath. ENCOUNTER: Initial ACUITY: 1 day PAIN SCORE: Nonresponsive. LOCATION: Bilateral neck PEAK SYSTOLIC VELOCITIES (cm/sec): ICA/CCA RATIO: Right: 0.7 Left: 0.9 ICA: Right: 39 Left: 37 CCA: Right: 59 Left: 41 ECA: Right: 47 Left: 46 VERTEBRAL: Right: 35 antegrade Left: 31 antegrade Elevated flow velocities and ICA/CCA ratios have been found to correlate with increased degrees of vessel stenosis, calculated as percentage of diameter relative to a normal segment of distal ICA/CCA FINDINGS: Antegrade flow is seen in both vertebral arteries. There is mild atherosclerotic plaquing at the orig in of both ICAs without any significant stenosis. CONCLUSION: No evidence for hemodynamically significant stenosis. Bob Adler MD on July 22, 2016 at 22:14 Board Certified Radiologist. This report was verified electronically.
--- NOTE | 2016-07-22 23:37 | EKG ---
Date Performed: 07/22/2016 Time Performed: 07:35:43 PTAGE: 86 years EKG: ELECTRONIC VENTRICULAR PACEMAKER ABNORMAL RHYTHM ECG PREVIOUS TRACING : 07/21/2016 20.58 Compared to prior tracing no significant change DOCTOR: Darren Bowles Interpretating Date/Time 07/22/2016 23:36:42
--- NOTE | 2016-07-22 23:50 | EKG ---
Date Performed: 07/21/2016 Time Performed: 20:58:42 PTAGE: 86 years EKG: ELECTRONIC VENTRICULAR PACEMAKER ABNORMAL RHYTHM ECG PREVIOUS TRACING : 07/21/2016 16.00 Compared to prior tracing no significant change DOCTOR: Darren Bowles Interpretating Date/Time 07/22/2016 23:49:12
--- NOTE | 2016-07-22 23:58 | EKG ---
Date Performed: 07/21/2016 Time Performed: 16:00:28 PTAGE: 86 years EKG: Ventricular pacemaker rhythm PREVIOUS TRACING : 06/30/2016 06.20 Compared to prior tracing no significant change DOCTOR: Darren Bowles Interpretating Date/Time 07/22/2016 23:57:04
[2016-07-23] VITALS (19 sets, daily range): BP systolic 132–153; BP diastolic 58–75; PULSE 62–74; RESP 14–21; TEMP 98.1–99.7; O2SAT 94–100
[2016-07-23] MEDS: DILTIAZEM HCL 60 MG TAB TUBE SCH ×4 (02:30→19:52)
[2016-07-23] MEDS: CHLORHEXIDINE GLUCONATE 2 % 1 PACK (2 CLOTHS) TOP SCH (04:00)
[2016-07-23] MEDS: hydrALAZINE HCL 50 MG TAB TUBE SCH ×2 (04:43→14:11)
[2016-07-23] MEDS: SODIUM CHLOR 0.9% 1000 ML INJ 1,000 ML IV SCH ×3 (04:43→19:52)
[2016-07-23] MEDS: PIPERACIL-TAZO 2.25 GM PREMIX 50 ML IV SCH ×3 (04:43→17:59)
[2016-07-23 04:56] LABS: HEMATOCRIT 27.3 % (35.0-46.0); MEAN CELL VOLUME 76.2 FL (80.0-100.0); MEAN CORPUSCULAR HEMOGLOBIN 25.4 PG (27.0-34.0); MEAN CORPUSCULAR HGB CONC 33.3 % (32.0-36.0); PLATELET COUNT 190 TH/MM3 (150-450); RED BLOOD COUNT 3.59 MIL/MM3 (4.00-5.30); RED CELL DISTRIBUTION WIDTH 17.1 % (11.6-17.2); REVIEW FLAG FINAL; WHITE BLOOD COUNT 6.7 TH/MM3 (4.0-11.0)
[2016-07-23 05:19] LABS: POTASSIUM 3.9 MEQ/L (3.5-5.1)
[2016-07-23] MEDS: CHLORHEXIDINE 0.12% (ORAL KIT) 15 ML CUP MT SCH ×2 (08:08→19:52)
[2016-07-23] MEDS: DOCUSATE SODIUM 100 MG CAP TUBE SCH ×2 (08:09→21:00)
[2016-07-23] MEDS: SODIUM CHLORIDE 0.9% FLUSH 5 ML FLUSH IV FLUSH SCH ×2 (08:18→21:00)
[2016-07-23] MEDS: METOPROLOL TARTRATE 50 MG TAB TUBE SCH ×2 (09:47→19:52)
[2016-07-23] MEDS: APIXABAN 2.5 MG TABLET OG-TUBE SCH ×2 (09:47→19:52)
[2016-07-23] MEDS: PANTOPRAZOLE SODIUM 40 MG VIAL IV SCH (09:47)
[2016-07-23] MEDS: cloNIDine HCL 0.3 MG TAB TUBE SCH ×2 (09:47→19:52)
--- NOTE | 2016-07-23 11:00 | HHI.CCPN ---
Subjective Remarks/Hospital Course Hospital Course: 86 yo AAF with PMH of HTN, dyslipidemia, Atrial fibrillation s/p pacemaker on anticoagulation with Eliquis, CKD stage III who presented to [facility] ED from home after her daughter and son summoned EVAC for altered mental status. She was intubated upon arrival for airway protection. I called her daughter to obtain history. Patient was most recently admitted to [facility] on with chest pain and acute on chronic systolic heart failure. She underwent pacemaker exchange to biventricular pacer with defibrillator . Upon discharge she was sent to the [facility] rehabilitation 07/03/16. Reportedly she was able to ambulate into rehabilitation with a walker according to her daughter. However, her condition has reportedly deteriorated at rehabilitation and she was not able to participate in physical therapy after the first couple of days there. She was no longer able to ambulate. Her daughter came down from [place] to pick her up from rehab when she was discharged 07/19/16. Her daughter and son were caring for her at a private residence. She was moaning throughout the night 07/19/16. On 07/20/16 her daughter noticed she had "rattling in her chest". She was able to speak some and indicated to her daughter that she did not want to be taken back to [place] and that she didn't feel like eating. She had no noted seizure activity. Her family was not able to discern any weakness, although they did say they thought her left arm dropped down when they picked it up. They deny prior h/o stroke. Workup in ED reveals CXR with left lower lobe consolidation. CT brain showed no acute abnormality. CT abdomen and pelvis demonstrated no acute abnormality with large stool in the rectum. Exam was limited due to motion artifact. Troponin is elevated 0.58. EKG is irregular, paced. She has been sedated on propofol. Blood pressure is 238/ 113. She is withdrawing weakly with all extremities. Her daughter also expresses concern that she may have been medicated with narcotics while she was in the residential however she states she has not received any since she was discharged 07/19. Subjective: 07/22: evaluated patient ~0700. patient persistently encephalopathic and very hypertensive, 210s/110s. called Dr. Pack to discuss care: unable to get MRI due to recent pacemaker placement. will hold sedation, control BP < 180 and watch clinically. 07/23: followed commands yesterday afternoon. blood pressure doing much better and now off nicardipine. will attempt SBT today. Objective Vital Signs Date Time Temp Pulse Resp B/P Pulse Ox O2 Delivery O2 Flow Rate FiO2 07/23/16 10:08 100 30 07/23/16 10:00 74 07/23/16 08:00 99.7 15 153/75 07/22/16 00:28 Ventilator 07/21/16 18:05 2 Intake and Output 07/22/16 07/22/16 07/23/16 08:00 16:00 00:00 Intake Total 1089 ml 918 ml 1010 ml Output Total 1100 ml 1075 ml 250 ml Balance -11 ml -157 ml 760 ml Result Diagram: 07/23/16 0430 07/23/16 0430 Other Results Microbiology Date/Time Procedure Status Source Growth 07/21/16 15:57 Urine Culture - Final Complete Urine Catheterized Urine NO GROWTH IN 48 HOURS. Objective Remarks GENERAL: Elderly critically ill appearing female who is orotracheally intubated. SKIN: Warm and dry. HEAD: Atraumatic. Normocephalic. EYES: She appears to have bilateral cataracts with pupils 3 mm and reactive bilaterally. No scleral icterus. No injection or drainage. ENT: No nasal bleeding or discharge. Mucous membranes pink and moist. NECK: Trachea midline. No JVD. CARDIOVASCULAR: Irregular, atrial fibrillation on the monitor with rate 69 no murmurs rubs or gallops appreciated.. Pacemaker scarring left chest. RESPIRATORY: Equal breath sounds bilaterally. No wheeze GASTROINTESTINAL: Abdomen soft, non-tender, nondistended. She has a surgical scar in the lower abdomen that is well-healed. Bowel sounds present. MUSCULOSKELETAL: Extremities without clubbing, cyanosis, or edema. No obvious deformities. NEUROLOGICAL: RASS -2. off sedation this morning. follows commands x 4. A/P Assessment and Plan Assessment: 86yF s/p recent pacemaker placement who was in inpatient rehab recently and has had progressive decline and altered mental status, now with acute encephalopathy and hypertensive urgency. Both of these are slowly resolving. she remains in hypoxic respiratory failure, and given how deconditioned she is, she may not pass SBT and separate from mechanical ventilation. She remains critically ill with acute respiratory failure, acute encephalopathy. Appreciate neurology assistance. NEURO: AMS secondary to hypertensive encephalopathy and toxic/metabolic secondary to pneumonia. carotids- no evidence of stenosis. Continue anticoagulation with Eliquis for A fib. frequent neuro checks neurology consulted: Dr. Morris RESP: Acute hypoxic and hypercarbic respiratory failure Vent Bundle HOB at 30 degrees wean fio2 for goal spo2 > 92% SBT today. if she passes, will attempt trial of extubation. CV: Atrial fibrillation Hypertensive Urgency Continue Eliquis for anticoagulation for atrial fibrillation continue antihypertensives with hydralazine 50 mg per tube every 8 hours, metoprolol 50 every 12, Cardizem 60 every 6, clonidine 0.3 every 12. continue arterial line for today. Use labetalol as needed for BP. wean off cardene today. GI: OG tube to low intermittent wall suction. if she fails SBT, we will start tube feeds. FEN/RENAL: CKD stage III Coates in place. Monitor intake and output. Monitor electrolytes and replace as indicated ID: Healthcare associated pneumonia Chest x-ray with left lower lobe infiltrate. Recently at residential. Urinalysis with small LE positive white blood cells Follow-up blood cultures and urine culture. f/u sputum culture f/u urine Legionella and pneumococcal antigen. Empiric coverage for HCAP with Zosyn and vancomycin. HEME: Religion Patient's daughter states she is Religion and she does not accept blood products. ENDO: Euglycemic. SSI PROPH: Protonix 40 mg's IV daily for stress ulcer prophylaxis. Continue eliquis which will provide DVT prophylaxis. SCDs ACCESS: Right leg and central venous line placed by ED physician 07/21/16. Will place arterial line. Patient's daughter, Michelle Lora, states she patient does not have a living will to her knowledge. Her daughter states she will check with her other siblings. She states the patient is full code to her knowledge but states that her mother never spoke of her wishes with her. Michelle states her mom should be designated full code. This patient remains critically ill with one or more organ systems which are or may become a threat to life. I have spent in excess of 38 minutes discontinuously in the care and management of this patient. This time is exclusive of procedures, and includes, but is not limited to, evaluation of the patient, review of the medical record, discussions with family, consultants, nursing staff, or respiratory therapy, and documentation in the medical record. Alex Dinero MD Jul 23, 2016 11:00
[2016-07-23 14:35] LABS: BLOOD GAS BASE EXCESS -1.5 mmol/L (-2-2); BLOOD GAS CARBOXYHEMOGLOBIN 1.5 % (0-4); BLOOD GAS HCO3 22 mmol/L (22-26); BLOOD GAS METHEMOGLOBIN 0.8 % (0-2); BLOOD GAS O2 HGB SATURATION 95 % (90-100); BLOOD GAS OXYGEN CONTENT 12.8 Vol % (12.0-20.0); BLOOD GAS PCO2 35 mmHg (38-42); BLOOD GAS PO2 93 mmHg (61-120); BLOOD GAS TOTAL HGB 9.5 G/DL (12.0-16.0); CRITICAL VALUE NO; DRAW SITE ART LINE; FIO2 30 %; OXYGEN DEVICE VENTILATOR; STAT NO; TEMP CORR TO 98.6; ULNAR PULSE PRESENT; VENT SETTINGS CPAP+5/PS5
--- NOTE | 2016-07-23 17:14 | HHI.PR ---
Objective Vital Signs Date Time Temp Pulse Resp B/P Pulse Ox O2 Delivery O2 Flow Rate FiO2 07/23/16 16:00 69 07/23/16 16:00 98.6 69 16 141/64 100 07/23/16 14:45 94 Nasal Cannula 3 07/23/16 14:45 95 Nasal Cannula 4.00 07/23/16 14:00 70 07/23/16 13:18 100 30 07/23/16 12:00 68 07/23/16 12:00 98.6 68 14 150/70 100 07/23/16 12:00 35 07/23/16 10:08 100 30 07/23/16 10:08 30 07/23/16 10:00 74 07/23/16 08:00 99.7 69 15 153/75 100 07/23/16 08:00 40 07/23/16 08:00 69 07/23/16 07:51 97 30 07/23/16 06:00 69 07/23/16 04:03 100 30 07/23/16 04:00 98.4 69 16 133/58 100 07/23/16 04:00 45 07/23/16 04:00 62 07/23/16 02:00 73 07/23/16 00:25 100 30 07/23/16 00:00 45 07/23/16 00:00 71 07/23/16 00:00 98.1 74 18 146/67 100 07/22/16 22:00 70 07/22/16 20:00 79 07/22/16 20:00 98.4 73 16 157/64 100 07/22/16 20:00 45 07/22/16 19:23 100 40 07/22/16 18:00 93 I/O 07/22/16 07/22/16 07/22/16 07/23/16 07/23/16 07/23/16 07:00 15:00 23:00 07:00 15:00 23:00 Intake Total 1209 ml 918 ml 1010 ml 750 ml 833 ml Output Total 1100 ml 1075 ml 250 ml 250 ml 300 ml Balance 109 ml -157 ml 760 ml 500 ml 533 ml Intake IV Total 1089 ml 918 ml 1010 ml 750 ml 833 ml Tube Irrigant 120 ml Output Urine Total 1000 ml 1050 ml 250 ml 250 ml 275 ml Gastric Drainage Total 100 ml 25 ml 25 ml # Bowel Movements 3 0 1 1 1 Result Diagram: 07/23/1642907/23/16429 Objective Remarks off vent tongue nl says hello moves bue well and can move ble generally weak Assessment and Plan Assessment and Plan imp will need rehab no definite neuro event here us neg will signoff Zi Gandhi MD Jul 23, 2016 17:14
[2016-07-23] MEDS: VANCOMYCIN INJ 1,500 MG in SODIUM CHLORID 0.9% 500 ML INJ 500 ML IV SCH (19:52)
--- NOTE | 2016-07-23 23:17 | EKG ---
Date Performed: 07/22/2016 Time Performed: 20:43:18 PTAGE: 86 years EKG: ELECTRONIC VENTRICULAR PACEMAKER ABNORMAL RHYTHM ECG PREVIOUS TRACING : 07/22/2016 07.35 DOCTOR: Dominga Lauren Interpretating Date/Time 07/23/2016 23:14:32
[2016-07-24] VITALS (11 sets, daily range): BP systolic 110–149; BP diastolic 69–77; PULSE 69–72; RESP 14–18; TEMP 97.5–98.8; O2SAT 96–100
[2016-07-24] MEDS: PIPERACIL-TAZO 2.25 GM PREMIX 50 ML IV SCH ×5 (00:08→22:52)
[2016-07-24] MEDS: hydrALAZINE HCL 50 MG TAB TUBE SCH ×4 (00:08→20:59)
[2016-07-24] MEDS: CHLORHEXIDINE GLUCONATE 2 % 1 PACK (2 CLOTHS) TOP SCH (03:26)
[2016-07-24] MEDS: DILTIAZEM HCL 60 MG TAB TUBE SCH ×4 (03:26→19:55)
[2016-07-24] MEDS: SODIUM CHLOR 0.9% 1000 ML INJ 1,000 ML IV SCH (03:28)
[2016-07-24 04:38] LABS: POTASSIUM 3.6 MEQ/L (3.5-5.1)
[2016-07-24 04:44] LABS: HEMATOCRIT 29.4 % (35.0-46.0); MEAN CELL VOLUME 78.5 FL (80.0-100.0); MEAN CORPUSCULAR HEMOGLOBIN 25.9 PG (27.0-34.0); PLATELET COUNT 220 TH/MM3 (150-450); RED BLOOD COUNT 3.75 MIL/MM3 (4.00-5.30); RED CELL DISTRIBUTION WIDTH 17.4 % (11.6-17.2); REVIEW FLAG FINAL
[2016-07-24] MEDS ORDERED: FUROSEMIDE 40 MG/4 ML VIAL IV PUSH ONE (06:45)
--- NOTE | 2016-07-24 07:01 | HHI.CCPN ---
Subjective Remarks/Hospital Course Hospital Course: 86 yo AAF with PMH of HTN, dyslipidemia, Atrial fibrillation s/p pacemaker on anticoagulation with Eliquis, CKD stage III who presented to [facility] ED from home after her daughter and son summoned [facility] for altered mental status. She was intubated upon arrival for airway protection. I called her daughter to obtain history. Patient was most recently admitted to [facility] on with chest pain and acute on chronic systolic heart failure. She underwent pacemaker exchange to biventricular pacer with defibrillator . Upon discharge she was sent to the [facility] rehabilitation 07/03/16. Reportedly she was able to ambulate into rehabilitation with a walker according to her daughter. However, her condition has reportedly deteriorated at rehabilitation and she was not able to participate in physical therapy after the first couple of days there. She was no longer able to ambulate. Her daughter came down from [place] to pick her up from rehab when she was discharged 07/19/16. Her daughter and son were caring for her at a private residence. She was moaning throughout the night 07/19/16. On 07/20/16 her daughter noticed she had "rattling in her chest". She was able to speak some and indicated to her daughter that she did not want to be taken back to [place] and that she didn't feel like eating. She had no noted seizure activity. Her family was not able to discern any weakness, although they did say they thought her left arm dropped down when they picked it up. They deny prior h/o stroke. Workup in ED reveals CXR with left lower lobe consolidation. CT brain showed no acute abnormality. CT abdomen and pelvis demonstrated no acute abnormality with large stool in the rectum. Exam was limited due to motion artifact. Troponin is elevated 0.58. EKG is irregular, paced. She has been sedated on propofol. Blood pressure is 238/ 113. She is withdrawing weakly with all extremities. Her daughter also expresses concern that she may have been medicated with narcotics while she was in the [facility] however she states she has not received any since she was discharged 07/19. Subjective: 07/22: evaluated patient ~0700. patient persistently encephalopathic and very hypertensive, 210s/110s. called Dr. Pack to discuss care: unable to get MRI due to recent pacemaker placement. will hold sedation, control BP < 180 and watch clinically. 07/23: followed commands yesterday afternoon. blood pressure doing much better and now off nicardipine. will attempt SBT today. 07/24: successfully extubated yesterday. passed bedside swallow eval. tolerating clear liquids. back on home meds. slightly volume overloaded by clinical exam. cr slightly uptrended. Objective Vital Signs Date Time Temp Pulse Resp B/P Pulse Ox O2 Delivery O2 Flow Rate FiO2 07/24/16 06:00 69 07/24/16 04:00 98.8 18 149/70 98 07/23/16 19:44 Nasal Cannula 2.00 07/23/16 13:18 30 Intake and Output 07/23/16 07/23/16 07/24/16 08:00 16:00 00:00 Intake Total 750 ml 833 ml 1364 ml Output Total 250 ml 300 ml 200 ml Balance 500 ml 533 ml 1164 ml Result Diagram: 07/24/16 0400 07/24/16 0400 Other Results Microbiology Date/Time Procedure Status Source Growth 07/21/16 15:57 Urine Culture - Final Complete Urine Catheterized Urine NO GROWTH IN 48 HOURS. 07/21/16 18:50 Legionella Antigen - Final Complete Urine Catheterized Urine PRESUMPTIVE NEGATIVE FOR LEGIONELLA P... 07/21/16 18:50 Streptococcus pneumoniae Antigen (M - Final Complete Urine Catheterized Urine PRESUMPTIVE NEGATIVE FOR STREPTOCOCCU... Laboratory Tests Test 07/23/16 14:29 Blood Gas Puncture Site ART LINE Blood Gas Patient Temperature 98.6 Blood Gas HCO3 22 mmol/L (22-26) Blood Gas Base Excess -1.5 mmol/L (-2-2) Blood Gas Oxygen Saturation 95 % (90-100) Arterial Blood pH 7.42 (7.380-7.420) Arterial Blood Partial 35 mmHg (38-42) Pressure CO2 Arterial Blood Partial 93 mmHg Pressure O2 (61-120) Arterial Blood Oxygen Content 12.8 Vol % (12.0-20.0) Arterial Blood 1.5 % (0-4) Carboxyhemoglobin Arterial Blood Methemoglobin 0.8 % (0-2) Blood Gas Hemoglobin 9.5 G/DL (12.0-16.0) Oxygen Delivery Device VENTILATOR Blood Gas Ventilator Setting CPAP+5/PS5 Blood Gas Inspired Oxygen 30 % Objective Remarks GENERAL: Elderly female lying in bed. SKIN: Warm and dry. HEAD: Atraumatic. Normocephalic. EYES: She appears to have bilateral cataracts with pupils 3 mm and reactive bilaterally. No scleral icterus. No injection or drainage. ENT: No nasal bleeding or discharge. Mucous membranes pink and moist. NECK: Trachea midline. No JVD. CARDIOVASCULAR: Irregular, atrial fibrillation on the monitor. Pacemaker scarring left chest. RESPIRATORY: Equal breath sounds bilaterally. No wheeze GASTROINTESTINAL: Abdomen soft, non-tender, nondistended. She has a surgical scar in the lower abdomen that is well-healed. Bowel sounds present. MUSCULOSKELETAL: Extremities without clubbing, cyanosis, or edema. No obvious deformities. NEUROLOGICAL: RASS -1. follows commands x 4. A/P Assessment and Plan Assessment: 86yF s/p recent pacemaker placement who was in inpatient rehab recently and has had progressive decline and altered mental status, now with acute encephalopathy and hypertensive urgency. Both of these continue to resolve. will advance diet and get OOB with assist and PT today. Per family, best place for her is likely SNF in [place] with the rest of her family. could not previously do enough rehab to meet criteria for inpatient rehab. NEURO: AMS secondary to hypertensive encephalopathy and toxic/metabolic secondary to pneumonia. carotids- no evidence of stenosis. Continue anticoagulation with Eliquis for A fib. liberalize neuro checks neurology consulted: Dr. Morris RESP: Acute hypoxic and hypercarbic respiratory failure- resolving. wean o2 by NC for goal spo2 > 92% aggressive pulm toilet with i.s., ez pap, acapella oob to chair pt consult CV: Atrial fibrillation Hypertensive Urgency- resolving. Continue Eliquis for anticoagulation for atrial fibrillation continue antihypertensives with hydralazine 50 mg per tube every 8 hours, metoprolol 50 every 12, Cardizem 60 every 6, clonidine 0.3 every 12. d/c arterial line. GI: Acute protein calorie malnutrition- moderate -- advance diet to heart healthy today. -- daily BMP -- bowel regimen for goal daily BMs. FEN/RENAL: CKD stage III Mario in place. Monitor intake and output. Monitor electrolytes and replace as indicated Lasix 40mg iv x 1 for volume overload will keep mario today given diuresis goals, but would aggressively work towards removing mario tomorrow if possible. ID: Healthcare associated pneumonia Chest x-ray with left lower lobe infiltrate. Recently at [facility]. Urinalysis with small LE positive white blood cells Follow-up blood cultures and urine culture. - currently NGTD. f/u sputum culture- currently NGTD. Legionella and pneumococcal antigen negative. Empiric coverage for HCAP with Zosyn and vancomycin. HEME: Congregational Patient's daughter states she is Congregational and she does not accept blood products. ENDO: Euglycemic. SSI PROPH: d/c protonix- no longer evidence based indication. Continue eliquis which will provide DVT prophylaxis. SCDs ACCESS: d/c cvl. d/c art line. obtain 2 piv's. Patient's daughter, Michelle Lora, states she patient does not have a living will to her knowledge. Her daughter states she will check with her other siblings. She states the patient is full code to her knowledge but states that her mother never spoke of her wishes with her. Michelle states her mom should be designated full code. Dispo: transfer to floor. hospitalist consult. Alex Dinero MD Jul 24, 2016 07:01
[2016-07-24] MEDS: CHLORHEXIDINE 0.12% (ORAL KIT) 15 ML CUP MT SCH ×2 (08:00→19:39)
[2016-07-24] MEDS: DOCUSATE SODIUM 100 MG CAP TUBE SCH ×2 (09:00→19:55)
[2016-07-24] MEDS: SODIUM CHLORIDE 0.9% FLUSH 5 ML FLUSH IV FLUSH SCH ×2 (09:00→19:55)
[2016-07-24] MEDS: APIXABAN 2.5 MG TABLET OG-TUBE SCH ×2 (09:16→19:55)
[2016-07-24] MEDS: cloNIDine HCL 0.3 MG TAB TUBE SCH ×2 (09:16→19:54)
[2016-07-24] MEDS: METOPROLOL TARTRATE 50 MG TAB TUBE SCH ×2 (09:16→19:55)
[2016-07-24] MEDS ORDERED: PHARMACY ORDERED LAB XX ONE (19:45)
[2016-07-24] MEDS: VANCOMYCIN INJ 1,500 MG in SODIUM CHLORID 0.9% 500 ML INJ 500 ML IV SCH (20:59)
[2016-07-25] VITALS (7 sets, daily range): BP systolic 128–194; BP diastolic 74–93; PULSE 69–87; RESP 16–22; TEMP 95.6–98.1; O2SAT 96–100
[2016-07-25] MEDS: RESP: ALBUTEROL 2.5 MG/3 ML NEB (PRN) INH ×2 (00:12→20:06)
[2016-07-25] MEDS: CHLORHEXIDINE GLUCONATE 2 % 1 PACK (2 CLOTHS) TOP SCH (03:46)
[2016-07-25] MEDS: DILTIAZEM HCL 60 MG TAB TUBE SCH ×4 (03:46→19:47)
[2016-07-25] MEDS: guaiFENesin SOLUTION 200 MG/10 ML CUP PO PRN ×4 (03:48→19:49)
[2016-07-25] MEDS: hydrALAZINE HCL 50 MG TAB TUBE SCH ×3 (05:27→22:03)
[2016-07-25] MEDS: PIPERACIL-TAZO 2.25 GM PREMIX 50 ML IV SCH ×4 (05:28→23:43)
[2016-07-25 07:04] LABS: HEMATOCRIT 30.1 % (35.0-46.0); MEAN CORPUSCULAR HEMOGLOBIN 25.1 PG (27.0-34.0); MEAN CORPUSCULAR HGB CONC 32.6 % (32.0-36.0); PLATELET COUNT 214 TH/MM3 (150-450); RED CELL DISTRIBUTION WIDTH 17.2 % (11.6-17.2); REVIEW FLAG FINAL; WHITE BLOOD COUNT 4.5 TH/MM3 (4.0-11.0)
[2016-07-25 07:22] LABS: BICARBONATE 25.9 MEQ/L (21.0-32.0); POTASSIUM 3.4 MEQ/L (3.5-5.1)
[2016-07-25] MEDS: CHLORHEXIDINE 0.12% (ORAL KIT) 15 ML CUP MT SCH ×2 (08:00→19:47)
[2016-07-25] MEDS: METOPROLOL TARTRATE 50 MG TAB TUBE SCH ×2 (09:25→19:48)
[2016-07-25] MEDS: cloNIDine HCL 0.3 MG TAB TUBE SCH ×2 (09:26→19:47)
[2016-07-25] MEDS: DOCUSATE SODIUM 100 MG CAP TUBE SCH ×2 (09:26→19:48)
[2016-07-25] MEDS: SODIUM CHLORIDE 0.9% FLUSH 5 ML FLUSH IV FLUSH SCH ×2 (09:26→19:47)
[2016-07-25] MEDS: APIXABAN 2.5 MG TABLET OG-TUBE SCH ×2 (09:26→19:48)
[2016-07-25] MEDS ORDERED: POTASSIUM CL 40 MEQ/30 ML LIQ UDC PO ONE (12:30)
--- NOTE | 2016-07-25 12:35 | HHI.PR ---
Subjective Remarks No acute events overnight. Afebrile, vital signs stable. Hypertensive this morning at 179/89. Other blood pressures within normal limits. Patient has no complaints this morning. She continues to have severe cough. States that she feels "great." Eating a heart healthy diet and stable without supplemental oxygen. Objective Vitals Vital Signs Date Time Temp Pulse Resp B/P Pulse Ox O2 Delivery O2 Flow Rate FiO2 07/25/16 08:00 98.1 75 18 179/89 96 07/25/16 00:00 97.9 70 22 128/74 100 07/24/16 22:00 70 07/24/16 20:00 98.7 69 18 131/77 100 07/24/16 20:00 69 07/24/16 19:37 96 Nasal Cannula 2.00 07/24/16 16:00 69 07/24/16 16:00 97.7 69 14 110/69 100 I/O 07/24/16 07/24/16 07/24/16 07/25/16 07/25/16 07/25/16 07:00 15:00 23:00 07:00 15:00 23:00 Intake Total 1101 ml 876 ml 929 ml 50 ml 240 ml Output Total 250 ml 1350 ml 250 ml 500 ml Balance 851 ml -474 ml 679 ml 50 ml -260 ml Intake Oral 200 ml 740 ml 870 ml 240 ml IV Total 901 ml 136 ml 59 ml 50 ml Output Urine Total 250 ml 1350 ml 250 ml 500 ml # Bowel Movements 1 0 0 0 Result Diagram: 07/25/16 0615 07/25/16 0615 Imaging Last Impressions Carotid Artery Ultrasound 07/22/16 0000 Signed Impressions: Service Date/Time: July 20:38 - CONCLUSION: No evidence for hemodynamically significant stenosis. Bob Adler MD Head CT 07/21/16 1557 Signed Impressions: Service Date/Time: Thursday, July 21, 2016 16:31 - CONCLUSION: 1. Atrophy with basal ganglia calcifications. 2. Negative for an acute process. Kwaku Gutiérrez MD FACR Chest X-Ray 07/21/16 1557 Signed Impressions: Service Date/Time: Thursday, July 21, 2016 16:14 - CONCLUSION: New consolidative changes in the left base with air bronchograms. Suspicious for an inflammatory process. Kwaku Gutiérrez MD FACR Abdomen/Pelvis CT 07/21/16 0000 Signed Impressions: Service Date/Time: Thursday, July 21, 2016 16:34 - CONCLUSION: 1. Severely limited exam because of patient motion. Free air and/or abscess in the abdomen cannot be excluded. Lack of intravenous contrast makes detection of subtle bowel pathology difficult. 2. Large bolus of stool is seen in the rectum. 3. Consolidative changes are seen in the left base. Kwaku Gutiérrez MD FACR Objective Remarks Gen.: No acute distress Head: Normocephalic. Atraumatic. EENT: Pupils equal round and reactive to light. Nose without drainage. Airway intact. Throat without injection. Cardiovascular: Regular rate and rhythm. No murmurs, rubs or gallops. Respiratory: Lungs clear to auscultation bilaterally. No wheezes or rhonchi. Abdomen: Soft, nontender, nondistended. No peritoneal signs. Musculoskeletal: No gross deformities. No edema. Skin: No obvious rashes or erythema. Neuro: Sensory and motor grossly intact. Cranial nerves II through XII grossly intact. Psych: Appropriate mood and affect Urinary Catheter: Yes A/P Problem List: (1) Acute kidney injury ICD Code: N17.9 Status: Acute (2) Altered mental status ICD Code: R41.82 Status: Acute (3) Pneumonia ICD Code: J18.9 Status: Acute (4) Sepsis ICD Code: A41.9 Status: Resolved (5) CKD (chronic kidney disease) stage 3, GFR 30-59 ml/min ICD Code: N18.3 Status: Chronic (6) Respiratory failure ICD Code: J96.90 Status: Resolved (7) Acute on chronic congestive heart failure ICD Code: I50.9 Status: Acute Assessment and Plan 86-year-old female who presented with altered mental status and hospital- acquired pneumonia now being treated for: 1. Sepsis/Hospital-acquired pneumonia The patient required intubation for hypoxic hypercapnic respiratory failure Successfully extubated yesterday Continue vancomycin and Zosyn 2. Acute on chronic kidney disease CKD stage III Creatinine climbing Continue Coates, monitor I's and O's Encouraged by mouth hydration Consider nephrology consult if creatinine continues to worsen 3. Altered mental status Secondary to hypertensive encephalopathy versus sepsis Resolved Neurology consulted, has signed off 4. Atrial fibrillation Rate controlled Continue Eliquis 5. Hypertensive emergency Continue antihypertensives with hydralazine 50 mg every 8 hours, metoprolol 50 every 12, Cardizem 60 every 6, clonidine 0.3 every 12. BP now controlled 6. CHF Patient with recent placement of biventricular pacer Careful monitoring of volume status Fluids: Hep-Lock IV Diet: Heart healthy Anticoagulation: Eliquis Full code. No blood products as patient is [employer]ab[employer]. Discharge Planning Unclear at this time. Patient will likely need [place] [facility] care. She does not wish to return to [place] with her children. Problem Qualifiers (1) Altered mental status: Qualified Code: R40.1 - Stupor (2) Pneumonia: Qualified Code: J18.1 - Pneumonia of left lower lobe due to infectious organism (3) Sepsis: Qualified Code: A41.9 - Sepsis, due to unspecified organism (4) Respiratory failure: Qualified Code: J96.01 - Acute respiratory failure with hypoxia and hypercapnia Michelle Godfrey MD R3 Jul 25, 2016 12:35
[2016-07-25] MEDS: hydrALAZINE HCL 10 MG TAB PO PRN ×2 (17:36→23:43)
[2016-07-25] MEDS: BENZONATATE 100 MG CAP PO PRN (22:03)
[2016-07-26] VITALS (8 sets, daily range): BP systolic 160–205; BP diastolic 84–150; PULSE 69–90; RESP 18–20; TEMP 95.6–98.4; O2SAT 94–98
[2016-07-26] MEDS: DILTIAZEM HCL 60 MG TAB TUBE SCH ×4 (03:33→21:20)
[2016-07-26] MEDS: cloNIDine HCL 0.1 MG TAB PO PRN ×2 (03:33→16:05)
[2016-07-26] MEDS: BENZONATATE 100 MG CAP PO PRN ×2 (03:33→10:04)
[2016-07-26] MEDS: CHLORHEXIDINE GLUCONATE 2 % 1 PACK (2 CLOTHS) TOP SCH (03:33)
[2016-07-26] MEDS: hydrALAZINE HCL 50 MG TAB TUBE SCH ×3 (05:20→21:20)
[2016-07-26] MEDS: PIPERACIL-TAZO 2.25 GM PREMIX 50 ML IV SCH ×4 (05:20→23:09)
[2016-07-26] MEDS: hydrALAZINE HCL 10 MG TAB PO PRN ×2 (06:27→12:59)
[2016-07-26 06:34] LABS: HEMATOCRIT 30.5 % (35.0-46.0); HEMO FLAGS AUTO DIFF; MEAN CORPUSCULAR HEMOGLOBIN 25.1 PG (27.0-34.0); MEAN CORPUSCULAR HGB CONC 33.1 % (32.0-36.0); PLATELET COUNT 225 TH/MM3 (150-450); RED BLOOD COUNT 4.01 MIL/MM3 (4.00-5.30); RED CELL DISTRIBUTION WIDTH 17.2 % (11.6-17.2); WHITE BLOOD COUNT 5.7 TH/MM3 (4.0-11.0)
[2016-07-26 06:37] LABS: BICARBONATE 26.3 MEQ/L (21.0-32.0); POTASSIUM 3.7 MEQ/L (3.5-5.1)
[2016-07-26 07:08] LABS: BASOPHILS 1 % (0-2); EOSINOPHILS 3 % (0-4); MYELOCYTES 1 % (0-0); NEUTROPHIL # MANUAL DIFF 4.5 TH/MM3 (1.8-7.7); POLYS (SEG NEUTROPHILS) 78 % (16-70); WBC DIFF SAMPLE 100
[2016-07-26 07:11] LABS: PLATELET ESTIMATE SMEAR NORMAL (NORMAL); PLATELET MORPHOLOGY NORMAL (NORMAL); SCAN/DIFF FINAL DIFF MANUAL
[2016-07-26 07:12] LABS: KERATOCYTES OCC (NORMAL); TARGET CELLS 1+ (NORMAL)
[2016-07-26] MEDS: CHLORHEXIDINE 0.12% (ORAL KIT) 15 ML CUP MT SCH (08:00)
[2016-07-26] MEDS: cloNIDine HCL 0.3 MG TAB TUBE SCH ×2 (08:23→21:20)
[2016-07-26] MEDS: APIXABAN 2.5 MG TABLET OG-TUBE SCH ×2 (08:23→21:20)
[2016-07-26] MEDS: DOCUSATE SODIUM 100 MG CAP TUBE SCH ×2 (08:24→21:20)
[2016-07-26] MEDS: METOPROLOL TARTRATE 50 MG TAB TUBE SCH ×2 (08:24→21:20)
[2016-07-26] MEDS: SODIUM CHLORIDE 0.9% FLUSH 5 ML FLUSH IV FLUSH SCH ×2 (08:27→21:19)
--- NOTE | 2016-07-26 09:11 | HHI.PR ---
Subjective Remarks The pt was working with physical therapy. She was too weak to get to the chair. She wanted to know why her heart was pounding. She wanted some cough medicine. She said she was breathing comfortably. Objective Vitals Vital Signs Date Time Temp Pulse Resp B/P Pulse Ox O2 Delivery O2 Flow Rate FiO2 07/26/16 08:20 97.8 79 18 196/96 98 07/26/16 04:30 183/92 07/26/16 03:30 205/150 07/26/16 00:00 96.1 70 20 171/84 97 07/25/16 20:00 96.7 80 22 185/81 96 07/25/16 18:30 97.2 87 20 194/93 97 184/92 07/25/16 16:00 97.1 73 18 168/93 98 07/25/16 15:00 96.8 72 21 177/86 99 07/25/16 12:00 95.6 69 16 133/80 99 I/O 07/25/16 07/25/16 07/25/16 07/26/16 07/26/16 07/26/16 07:00 15:00 23:00 07:00 15:00 23:00 Intake Total 50 ml 890 ml 360 ml 340 ml Output Total 1100 ml 700 ml 1850 ml Balance 50 ml -210 ml -340 ml -1510 ml Intake Oral 840 ml 360 ml 240 ml IV Total 50 ml 50 ml 0 ml 100 ml Output Urine Total 1100 ml 700 ml 1850 ml # Bowel Movements 2 0 0 Result Diagram: 07/26/16 0553 07/26/16 0553 Imaging Last Impressions Carotid Artery Ultrasound 07/22/16 0000 Signed Impressions: Service Date/Time: July 20:38 - CONCLUSION: No evidence for hemodynamically significant stenosis. Bob Adler MD Head CT 07/21/16 1557 Signed Impressions: Service Date/Time: Thursday, July 21, 2016 16:31 - CONCLUSION: 1. Atrophy with basal ganglia calcifications. 2. Negative for an acute process. Kwaku Gutiérrez MD FACR Chest X-Ray 07/21/16 1557 Signed Impressions: Service Date/Time: Thursday, July 21, 2016 16:14 - CONCLUSION: New consolidative changes in the left base with air bronchograms. Suspicious for an inflammatory process. Kwaku Gutiérrez MD FACR Abdomen/Pelvis CT 07/21/16 0000 Signed Impressions: Service Date/Time: Thursday, July 21, 2016 16:34 - CONCLUSION: 1. Severely limited exam because of patient motion. Free air and/or abscess in the abdomen cannot be excluded. Lack of intravenous contrast makes detection of subtle bowel pathology difficult. 2. Large bolus of stool is seen in the rectum. 3. Consolidative changes are seen in the left base. Kwaku Gutiérrez MD FACR Objective Remarks Gen.: No acute distress Head: Normocephalic. Atraumatic. EENT: Pupils equal round and reactive to light. Nose without drainage. Airway intact. Throat without injection. Cardiovascular: Regular rate and rhythm. Grade 2 systolic murmur appreciated. Respiratory: Lungs clear to auscultation bilaterally. No wheezes or rhonchi. Abdomen: Soft, nontender, nondistended. No peritoneal signs. Musculoskeletal: No gross deformities. No edema. Skin: No obvious rashes or erythema. Neuro: Sensory and motor grossly intact. Cranial nerves II through XII grossly intact. Psych: Appropriate mood and affect Procedures Intubation/ extubation Medications and IVs Current Medications Medications (Trade) Dose Ordered Sig/Bhavna Route Start Time Stop Time Status Last Admin (Peridex 0.12% Liq) 15 ml BID@08,20 MT 07/22/16 08:00 07/26/16 08:00 (Apresoline) 50 mg Q8HR TUBE 07/21/16 22:00 07/26/16 05:20 (Lopressor) 50 mg Q12HR TUBE 07/21/16 21:00 07/26/16 08:24 (Cardizem) 60 mg Q6H TUBE 07/21/16 21:00 07/26/16 08:23 (Catapres) 0.3 mg Q12HR TUBE 07/21/16 21:00 07/26/16 08:23 (NS Flush) 2 ml UNSCH PRN IV FLUSH 07/21/16 20:45 (NS Flush) 2 ml BID IV FLUSH 07/21/16 21:00 07/26/16 08:27 (Zofran Inj) 4 mg Q6H PRN IV 07/21/16 20:45 (Colace) 100 mg BID TUBE 07/21/16 21:00 07/26/16 08:24 (Senokot) 17.2 mg Q12H PRN TUBE 07/21/16 20:45 Miscellaneous Information 1 Q361D XX 07/21/16 20:45 (Chlorhexidine 2% Cloth) 3 pack Taper DAILY@04 TOP 07/22/16 04:00 07/18/17 03:59 07/24/16 03:26 Chlorhexidine Gluconate 3 pack 3 pack UNSCH PRN TOP 07/21/16 20:45 Potassium Chloride 100 ml @ 50 mls/hr Q2H PRN IV 07/21/16 20:45 07/22/16 19:56 (KCl 20 Meq Premix Inj) 100 ml @ 50 mls/hr Q2H PRN IV 07/21/16 20:45 Potassium Chloride 40 meq 40 meq UNSCH PRN PO/TUBE 07/21/16 20:45 07/22/16 05:43 Potassium Chloride 100 ml @ 25 mls/hr UNSCH PRN IV 07/21/16 20:45 Potassium Chloride 100 ml @ 50 mls/hr Q2H PRN IV 07/21/16 20:45 (Magnesium Sulfate Inj/NS Inj) 100 ml @ 50 mls/hr UNSCH PRN IV 07/21/16 20:45 Magnesium Oxide 800 mg 800 mg UNSCH PRN PO 07/21/16 20:45 (Magnesium Sulfate Inj/NS Inj) 100 ml @ 50 mls/hr UNSCH PRN IV 07/21/16 20:45 Potassium Phosphate 2000 mg 2,000 mg Q4H PRN PO 07/21/16 20:45 (Sodium Phosphate Inj/NS 250 ml Inj) 250 ml @ 42 mls/hr UNSCH PRN IV 07/21/16 20:45 (KCl 40 Meq/30 ml Liq) 40 meq UNSCH PRN PO/TUBE 07/21/16 20:45 Potassium Phosphate 2000 mg 2,000 mg UNSCH PRN PO/TUBE 07/21/16 20:45 Potassium Phosphate 30 mmol/ Sodium Chloride 260 ml @ 42 mls/hr UNSCH PRN IV 07/21/16 20:45 07/22/16 06:34 Piperacillin Sod/ Tazobactam Sod 50 ml @ 100 mls/hr Q6H IV 07/22/16 00:00 07/26/16 05:20 (Vancomycin Consult Pharmacy) 0 ml @ 0 mls/hr UNSCH OTHER 07/21/16 21:00 (Trandate Inj) 10 mg Q4H PRN IV PUSH 07/22/16 07:00 Apixaban 2.5 mg 2.5 mg BID OG-TUBE 07/22/16 09:00 07/26/16 08:23 (Vancomycin Inj/ NS 500 ml Inj) 515 ml @ 250 mls/hr Q24H IV 07/22/16 20:00 Hold 07/24/16 20:59 (Dilaudid Pf Inj) 0.25 mg Q4H PRN IV PUSH 07/23/16 17:45 (Apresoline) 10 mg Q6HR PRN PO 07/25/16 17:15 07/26/16 06:27 (Catapres) 0.1 mg Q6H PRN PO 07/25/16 18:45 07/26/16 03:33 (Tessalon) 100 mg TID PRN PO 07/25/16 21:15 07/26/16 03:33 A/P Problem List: (1) Acute kidney injury ICD Code: N17.9 Status: Acute (2) Altered mental status ICD Code: R41.82 Status: Acute (3) Pneumonia ICD Code: J18.9 Status: Acute (4) Sepsis ICD Code: A41.9 Status: Resolved (5) CKD (chronic kidney disease) stage 3, GFR 30-59 ml/min ICD Code: N18.3 Status: Chronic (6) Respiratory failure ICD Code: J96.90 Status: Resolved (7) Acute on chronic congestive heart failure ICD Code: I50.9 Status: Acute Assessment and Plan Sepsis/ Hospital-acquired pneumonia CXR with PNA in left lower lobe. The patient required intubation for hypoxic hypercapnic respiratory failure. Successfully extubated. - Continue vancomycin and Zosyn. - incentive spirometry. - oxygen and nebs as needed. - physical therapy. Hypertensive emergency BP still poorly controlled. - Continue hydralazine 50 mg every 8 hours, metoprolol 50 every 12, Cardizem 60 every 6, clonidine 0.3 every 12. - clonidine and hydralazine as needed. - pt not a candidate for MRA or CTA to rule out renal artery stenosis s/t renal function. US not available here. Outpt follow-up recommended. Acute on chronic kidney disease CKD, stage III. Creatinine stable. - remove Coates. - monitor BMP and avoid nephrotoxic agents. Altered mental status Secondary to hypertensive encephalopathy versus sepsis or both. Resolved. Neurology consulted, has signed off. - treat PNA and hypertension. - neuro checks. - PT/ OT. Atrial fibrillation Rate controlled. - Continue Eliquis. CHF Patient with recent placement of biventricular pacer. - Careful monitoring of volume status. - continue cardiac regimen. Foot pain On the left. Exam unremarkable. - left foot x ray pending. PPx: Eliquis. Discharge Planning Awaiting clinical improvement. Will need SNF. Problem Qualifiers (1) Altered mental status: Qualified Code: R40.1 - Stupor (2) Pneumonia: Qualified Code: J18.1 - Pneumonia of left lower lobe due to infectious organism (3) Sepsis: Qualified Code: A41.9 - Sepsis, due to unspecified organism (4) Respiratory failure: Qualified Code: J96.01 - Acute respiratory failure with hypoxia and hypercapnia Honorio Cabezas DO Jul 26, 2016 09:11
[2016-07-26] MEDS ORDERED: guaiFENesin SOLUTION 200 MG/10 ML CUP PO PRN (09:30)
[2016-07-26] MEDS: guaiFENesin/CODEINE SYRUP 200 MG/20 MG/10 ML CUP PO PRN ×3 (12:01→21:20)
[2016-07-26] MEDS: VANCOMYCIN INJ 1,500 MG in SODIUM CHLORID 0.9% 500 ML INJ 500 ML IV SCH (12:30)
--- NOTE | 2016-07-26 14:23 | RADRPT ---
EXAM DATE/TIME: 07/26/2016 13:47 [facility] COMPARISON: No previous studies available for comparison. INDICATIONS : Left foot pain MEDICAL HISTORY : Cardiovascular disease. SURGICAL HISTORY : Pacemaker. ENCOUNTER: Initial ACUITY: 1 day PAIN SCORE: Non-responsive. LOCATION: Left foot FINDINGS: Bony structures are intact without evidence of fracture or dislocation. Mild/moderate bone demineralization is noted. Degenerative joint disease identified involving the tibial talar joint and the tarsometatarsal articu lations. Hallux valgus for the great toe is noted. CONCLUSION: 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 Mc Perez MD on July 26, 2016 at 14:19 Board Certified Radiologist. This report was verified electronically.
[2016-07-26] MEDS: RESP: ALBUTEROL 2.5 MG/3 ML NEB (PRN) INH (20:06)
[2016-07-26] MEDS: HYDROmorphone HCL PF 1 MG/ML VIAL IV PUSH PRN (21:32)
[2016-07-27] VITALS (12 sets, daily range): BP systolic 153–197; BP diastolic 84–98; PULSE 69–98; RESP 9–22; TEMP 96.4–98.9; O2SAT 95–100
[2016-07-27] MEDS: RESP: ALBUTEROL 2.5 MG/3 ML NEB (PRN) INH (00:30)
[2016-07-27] MEDS: DILTIAZEM HCL 60 MG TAB TUBE SCH ×4 (02:05→20:35)
[2016-07-27] MEDS: hydrALAZINE HCL 50 MG TAB TUBE SCH ×3 (04:48→21:41)
[2016-07-27] MEDS: PIPERACIL-TAZO 2.25 GM PREMIX 50 ML IV SCH ×3 (04:49→18:00)
[2016-07-27 06:40] LABS: BICARBONATE 27.5 MEQ/L (21.0-32.0); MAGNESIUM 1.7 MG/DL (1.5-2.5); POTASSIUM 3.5 MEQ/L (3.5-5.1)
[2016-07-27] MEDS: cloNIDine HCL 0.3 MG TAB TUBE SCH ×2 (08:00→20:35)
[2016-07-27] MEDS: APIXABAN 2.5 MG TABLET OG-TUBE SCH ×2 (08:00→20:35)
[2016-07-27] MEDS: DOCUSATE SODIUM 100 MG CAP TUBE SCH ×2 (08:00→20:36)
[2016-07-27] MEDS: METOPROLOL TARTRATE 50 MG TAB TUBE SCH ×2 (08:00→20:36)
[2016-07-27] MEDS: SODIUM CHLORIDE 0.9% FLUSH 5 ML FLUSH IV FLUSH SCH ×2 (08:01→20:35)
--- NOTE | 2016-07-27 11:38 | HHI.PR ---
Subjective Remarks Patient was noted with altered mental status and also per family she was noted with tremors and facial deficit. Patient is back at her baseline per family now. She is alert and oriented x 2. Recognizes family and follows some commands. Patient reports headache. No change in vision. She feels with generalized weakness but no focal deficit, however she is not following fully commands. Objective Vitals Vital Signs Date Time Temp Pulse Resp B/P Pulse Ox O2 Delivery O2 Flow Rate FiO2 07/27/16 08:28 96 Nasal Cannula 21 07/27/16 08:00 98.9 83 17 197/90 95 07/27/16 04:27 98.2 72 16 168/98 95 07/27/16 00:33 95 21 07/27/16 00:26 96.8 98 22 162/88 97 07/26/16 22:08 16 07/26/16 20:39 96.9 90 18 168/96 94 07/26/16 16:19 98.4 81 18 193/100 97 07/26/16 12:01 95.6 70 18 170/95 97 I/O 07/26/16 07/26/16 07/26/16 07/27/16 07/27/16 07/27/16 07:00 15:00 23:00 07:00 15:00 23:00 Intake Total 340 ml 510 ml 380 ml 380 ml Output Total 1850 ml Balance -1510 ml 510 ml 380 ml 380 ml Intake Oral 240 ml 360 ml 380 ml 380 ml IV Total 100 ml 150 ml Output Urine Total 1850 ml # Voids 3 3 4 # Bowel Movements 0 0 0 Result Diagram: 07/26/16 0553 07/27/16 0545 Imaging Last Impressions Foot X-Ray 07/26/16 0000 Signed Impressions: Service Date/Time: Tuesday, July 26, 2016 13:47 - CONCLUSION: 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 Mc Perez MD Carotid Artery Ultrasound 07/22/16 0000 Signed Impressions: Service Date/Time: July 20:38 - CONCLUSION: No evidence for hemodynamically significant stenosis. Bob Adler MD Head CT 07/21/16 8077 Signed Impressions: Service Date/Time: Thursday, July 21, 2016 16:31 - CONCLUSION: 1. Atrophy with basal ganglia calcifications. 2. Negative for an acute process. Kwaku Gutiérrez MD FACR Chest X-Ray 07/21/16 1557 Signed Impressions: Service Date/Time: Thursday, July 21, 2016 16:14 - CONCLUSION: New consolidative changes in the left base with air bronchograms. Suspicious for an inflammatory process. Kwaku Gutiérrez MD FACR Abdomen/Pelvis CT 07/21/16 0000 Signed Impressions: Service Date/Time: Thursday, July 21, 2016 16:34 - CONCLUSION: 1. Severely limited exam because of patient motion. Free air and/or abscess in the abdomen cannot be excluded. Lack of intravenous contrast makes detection of subtle bowel pathology difficult. 2. Large bolus of stool is seen in the rectum. 3. Consolidative changes are seen in the left base. Kwaku Gutiérrez MD FACR Objective Remarks General appearance: Elderly 86 yo AA female, in bed, appears in nad, pleasantly confused follows some commands. Head: Normocephalic. Atraumatic. EENT: Pupils equal round and reactive to light. EOMI. Nose without drainage. Airway intact. Throat without injection. Cardiovascular: Regular rate and rhythm. Grade 2 systolic murmur appreciated. Respiratory: Lungs clear to auscultation bilaterally. No wheezes or rhonchi. Abdomen: Soft, nontender, nondistended. No peritoneal signs. Musculoskeletal: No gross deformities. No edema. Skin: No obvious rashes or erythema. Neuro: Sensory and motor grossly intact. Cranial nerves II through XII grossly intact. Moves all extremities. Follows some commands. Psych: Appropriate mood and affect A/P Problem List: (1) Acute kidney injury ICD Code: N17.9 Status: Acute (2) Altered mental status ICD Code: R41.82 Status: Acute (3) Pneumonia ICD Code: J18.9 Status: Acute (4) Sepsis ICD Code: A41.9 Status: Resolved (5) CKD (chronic kidney disease) stage 3, GFR 30-59 ml/min ICD Code: N18.3 Status: Chronic (6) Respiratory failure ICD Code: J96.90 Status: Resolved (7) Acute on chronic congestive heart failure ICD Code: I50.9 Status: Acute Assessment and Plan Altered mental status Poss seizures vs syncope r/o CVA Neurology consulted. Treat PNA. - neuro checks., move patient to the floor for closer obs per neurology Stat CBC, BMP, trops. replace electrolytes per ICU protocol. Trops trending down Do EEG Recent ECHO 07/09 with EF of 25-30%. Recent carotid US reviewed and no significant stenosis. Stat CT head reviewed no signs of hemorrhagic stroke. Allow permissive HTN. Start IVF. - PT/ OT/ST. Sepsis/ Hospital-acquired pneumonia CXR with PNA in left lower lobe. The patient required intubation for hypoxic hypercapnic respiratory failure. Successfully extubated. - Continue vancomycin and Zosyn. - incentive spirometry. - oxygen and nebs as needed. - physical therapy. Hypertensive emergency BP still poorly controlled. - Continue hydralazine 50 mg every 8 hours, metoprolol 50 every 12, Cardizem 60 every 6, clonidine 0.3 every 12. - clonidine and hydralazine as needed. - pt not a candidate for MRA or CTA to rule out renal artery stenosis s/t renal function. US not available here. Outpt follow-up recommended. Acute on chronic kidney disease CKD, stage III. Creatinine stable. - remove Coates. - monitor BMP and avoid nephrotoxic agents. Atrial fibrillation Rate controlled. - Continue Eliquis. CHF Patient with recent placement of biventricular pacer. - Careful monitoring of volume status. - continue cardiac regimen. Foot pain On the left. Exam unremarkable. - left foot x ray pending. PPx: Eliquis. Discharge Planning Awaiting clinical improvement. Will need SNF. Intubation/ extubation Transfer to the floor for close neuro monitoring. Discussed with the patient, nurse, family at bedside. Problem Qualifiers (1) Altered mental status: Qualified Code: R40.1 - Stupor (2) Pneumonia: Qualified Code: J18.1 - Pneumonia of left lower lobe due to infectious organism (3) Sepsis: Qualified Code: A41.9 - Sepsis, due to unspecified organism (4) Respiratory failure: Qualified Code: J96.01 - Acute respiratory failure with hypoxia and hypercapnia Violet Loya MD Jul 27, 2016 11:38
[2016-07-27] MEDS ORDERED: SODIUM CHLOR 0.9% 1000 ML INJ 1,000 ML IV SCH (12:00)
[2016-07-27 12:02] LABS: I-STAT POTASSIUM 3.4 MMOL/L (3.5-4.9)
[2016-07-27 12:05] LABS: BASOPHIL # 0.1 TH/MM3 (0-0.2); EOSINOPHIL # 0.1 TH/MM3 (0-0.4); EOSINOPHIL % 2.1 % (0.0-4.0); HEMATOCRIT 30.1 % (35.0-46.0); LYMPH % 9.2 % (9.0-44.0); LYMPHOCYTE # 0.5 TH/MM3 (1.0-4.8); MEAN CELL VOLUME 76.4 FL (80.0-100.0); MEAN CORPUSCULAR HEMOGLOBIN 24.9 PG (27.0-34.0); MEAN CORPUSCULAR HGB CONC 32.6 % (32.0-36.0); MONO % 11.8 % (0.0-8.0); NEUT % 75.9 % (16.0-70.0); PLATELET COUNT 214 TH/MM3 (150-450); RED BLOOD COUNT 3.94 MIL/MM3 (4.00-5.30); RED CELL DISTRIBUTION WIDTH 17.5 % (11.6-17.2); WHITE BLOOD COUNT 5.2 TH/MM3 (4.0-11.0)
[2016-07-27 12:09] LABS: HEMO FLAGS AUTO DIFF
[2016-07-27 12:09] LABS: BLOOD GAS BASE EXCESS 5.6 mmol/L (-2-2); BLOOD GAS CARBOXYHEMOGLOBIN 2.7 % (0-4); BLOOD GAS HCO3 29 mmol/L (22-26); BLOOD GAS METHEMOGLOBIN 1.7 % (0-2); BLOOD GAS O2 HGB SATURATION 92 % (90-100); BLOOD GAS OXYGEN CONTENT 13.2 Vol % (12.0-20.0); BLOOD GAS PCO2 38 mmHg (38-42); BLOOD GAS PO2 77 mmHG (61-120); BLOOD GAS TOTAL HGB 10.1 G/DL (12.0-16.0); CRITICAL VALUE NO; DRAW SITE RT RADIAL; LITER FLOW 2 L/M; NUMBER OF ARTERIAL PUNCTURES 1; OXYGEN DEVICE NASAL CANNULA; STAT YES; TEMP CORR TO 98.6; ULNAR PULSE Y
[2016-07-27 12:11] LABS: APTT (PATIENT) 29.4 SEC (24.3-30.1); INTERNATIONAL NORMALIZED RATIO 1.1 RATIO; PROTHROMBIN TIME - PATIENT 12.4 SEC (9.8-11.6)
--- NOTE | 2016-07-27 12:12 | RADRPT ---
EXAM DATE/TIME: 07/27/2016 11:57 [facility] COMPARISON: CT BRAIN W/O CONTRAST, July 21, 2016, 16:31. INDICATIONS : Right facila droop, slurred speech RADIATION DOSE: 43.53 CTDIvol (mGy) This report was called by Dr. Elizalde to Dr. Pennington at 12: 08 PM MEDICAL HISTORY : Cerebrovascular disease. Cardiovascular disease Hypertension.renal failure SURGICAL HISTORY : Hysterectomy. ENCOUNTER: Initial ACUITY: 1 day PAIN SCALE: 5/10 LOCATION: cranial TECHNIQUE: Multiple contiguous axial images were obtained of the head. Using automated exposure control and adj ustment of the mA and/or kV according to patient size, radiation dose was kept as low as reasonably a chievable to obtain optimal diagnostic quality images. FINDINGS: CEREBRUM: There is mild cerebral atrophy. Moderate periventricular white matter low-attenuation is present. The re is prominent basal ganglia calcification bilaterally. No evidence of midline shift, mass lesion, hemorrhage or acute infarction. No extra-axial fluid collections are seen. POSTERIOR FOSSA: The cerebellum and brainstem demonstrate no acute finding. The 4th ventricle is midline. The cerebe llopontine angle is unremarkable. EXTRACRANIAL: Visualized sinuses are clear. SKULL: The calvaria is intact. No evidence of skull fracture. CONCLUSION: Stable noncontrast head CT. No acute finding is identified. Chronic changes include atrophy and moder ate periventricular white matter low attenuation characteristic of chronic microvascular ischemia. Mckinley Elizalde MD on July 27, 2016 at 12:05 Board Certified Radiologist. This report was verified electronically.
[2016-07-27] MEDS ORDERED: POTASSIUM CHLORIDE 10 MEQ CONTROLLED RELEASE TAB PO ONE (12:30)
[2016-07-27] MEDS ORDERED: cloNIDine HCL 0.1 MG TAB PO PRN (12:30)
[2016-07-27 12:32] LABS: TARGET CELLS 1+ (NORMAL)
[2016-07-27 12:34] LABS: ACANTHOCYTES OCC (NORMAL); KERATOCYTES OCC (NORMAL)
[2016-07-27 12:35] LABS: HELMET CELLS OCC (NORMAL); OVALOCYTES 1+ (NORMAL); PLATELET ESTIMATE SMEAR NORMAL (NORMAL); PLATELET MORPHOLOGY NORMAL (NORMAL); SCAN/DIFF AUTO DIFF CONFIRMED
[2016-07-27] MEDS ORDERED: SODIUM CHLOR 0.9% 250 ML INJ 200 ML IV ONE (13:00)
[2016-07-27] MEDS ORDERED: LABETALOL HCL 100 MG/20 ML VIAL IV ONE ×2 (13:45→14:00)
[2016-07-27] MEDS ORDERED: IOHEXOL 350 MG/ML 10 ML VIAL (for RAD DIAG) IV ONE (14:07)
--- NOTE | 2016-07-27 14:24 | RADRPT ---
EXAM DATE/TIME: 07/27/2016 13:52 [facility] COMPARISON: No previous studies available for comparison. INDICATIONS : Right facial droop,slurred speech. IV CONTRAST: 62 cc Omnipaque 350 (iohexol) IV ; Cumulative dose for multiple exams. RADIATION DOSE: 15.93 CTDIvol (mGy) ; Combined studies MEDICAL HISTORY : Cerebrovascular disease. Cardiovascular disease Hypertension.Renal failure SURGICAL HISTORY : Hysterectomy. ENCOUNTER: Initial ACUITY: 1 day PAIN SCALE: 0/10 LOCATION: CTA HEAD TECHNIQUE: Volumetric scanning was performed using a multi-row detector CT scanner. The data was post processed with a variety of visualization algorithms including full volume maximum intensity projection, multi -planar sliding thin slab reformation, curved planar reformation, and surface rendering techniques. Using automated exposure control and adjustment of the mA and/or kV according to patient size, radiat ion dose was kept as low as reasonably achievable to obtain optimal diagnostic quality images. FINDINGS: There is excellent visualization of the major intracranial arteries out to the second-order branch ve ssels. Mild luminal irregularity in her to calcification are noted. There is no evidence of significant sten osis or proximal occlusive disease. There is no evidence of mass effect. Secondary and tertiary [facility] hes appear symmetric. There is no evidence of aneurysm. CONCLUSION: Arterial calcification and luminal irregularity characteristic of atherosclerotic vascular disease. No evidence of significant luminal stenosis or obstructive vascular disease. No evidence of aneurysm Mc Perez MD on July 27, 2016 at 14:16 Board Certified Radiologist. This report was verified electronically.
--- NOTE | 2016-07-27 14:52 | RADRPT ---
EXAM DATE/TIME: 07/27/2016 13:52 [place] COMPARISON: No previous studies available for comparison. INDICATIONS : Right facial droop,slurred speech. IV CONTRAST: 62 cc Omnipaque 350 (iohexol) IV ; Cumulative dose for multiple exams. RADIATION DOSE: 15.93 CTDIvol (mGy) ; Combined studies MEDICAL HISTORY : Cerebrovascular disease. Cardiovascular disease Hypertension.Renal failure SURGICAL HISTORY : Hysterectomy. ENCOUNTER: Initial ACUITY: 1 day PAIN SCALE: 0/10 LOCATION: Cta neck Elevated flow velocities and ICA/CCA ratios have been found to correlate with increased degrees of vessel stenosis, calculated as percentage of diameter relative to a normal segment of distal ICA/CCA. TECHNIQUE: Volumetric scanning was performed using a multirow detector CT scanner. The data was post processed with a variety of visualization algorithms including full-volume maximum intensity projection, multip lanar sliding thin-slab reformation, curved-planar reformation, and surface-rendering techniques. Us ing automated exposure control and adjustment of the mA and/or kV according to patient size, radiatio n dose was kept as low as reasonably achievable to obtain optimal diagnostic quality images. FINDINGS: AORTIC ARCH: There is a three-vessel origin of the great vessels from the aorta. No evidence of ostial narrowing. RIGHT CAROTID: Mild calcified plaque is identified in the carotid bifurcation. There is no evidence of hemodynamical ly significant stenosis. LEFT CAROTID: Mild to moderate plaque is identified in the carotid bifurcation. There is mild stenosis ranging in t he 15-30% range. VERTEBRALS: Calcified plaque is seen at the origin left vertebral artery. Mild luminal stenosis is seen at the or igin left vertebral artery. Right vertebral artery is patent without significant stenosis. CONCLUSION: Mild calcified plaque in both carotid bifurcations. No evidence of hemodynamically significant stenosis. Focal calcified plaque and mild narrowing of the origin left vertebral artery. Mc Perez MD on July 27, 2016 at 14:46 Board Certified Radiologist. This report was verified electronically.
[2016-07-27] MEDS: VANCOMYCIN INJ 1,500 MG in SODIUM CHLORID 0.9% 500 ML INJ 500 ML IV SCH (14:57)
[2016-07-27] MEDS ORDERED: POTASSIUM PHOSPHATE INJ 30 MMOL in SODIUM CHLOR 0.9% 250 ML INJ 250 ML IV PRN (15:45)
[2016-07-27] MEDS ORDERED: POTASSIUM CL 40 MEQ/30 ML LIQ UDC PO/TUBE PRN ×2 (15:45)
[2016-07-27] MEDS ORDERED: POTASSIUM PHOSPHATE MONOBASIC 500 MG TAB PO PRN (15:45)
[2016-07-27] MEDS ORDERED: POTASSIUM PHOSPHATE MONOBASIC 500 MG TAB PO/TUBE PRN (15:45)
[2016-07-27] MEDS ORDERED: MAGNESIUM OXIDE 400 MG TAB PO PRN (15:45)
[2016-07-27] MEDS ORDERED: MAGNESIUM SULFATE INJ 4 GM in SODIUM CHLORIDE 0.9% INJ 92 ML IV PRN (15:45)
[2016-07-27] MEDS ORDERED: POTASSIUM CHLOR 20 MEQ PREMIX 100 ML IV PRN ×2 (15:45)
[2016-07-27] MEDS ORDERED: MAGNESIUM SULFATE INJ 2 GM in SODIUM CHLORIDE 0.9% INJ 96 ML IV PRN (15:45)
[2016-07-27] MEDS ORDERED: POTASSIUM CHLOR 40 MEQ PREMIX 100 ML IV PRN ×2 (15:45)
[2016-07-27] MEDS ORDERED: SODIUM PHOSPHATE INJ 30 MMOL in SODIUM CHLOR 0.9% 250 ML INJ 240 ML IV PRN (15:45)
[2016-07-27] MEDS: levETIRAcetam 500 MG/NS 100 ML IV SCH ×2 (16:00)
[2016-07-27] MEDS ORDERED: levETIRAcetam 500MG PREMIX INJ 100 ML IV SCH (16:00)
[2016-07-27] MEDS: HYDROmorphone HCL PF 1 MG/ML VIAL IV PUSH PRN (16:58)
--- NOTE | 2016-07-27 18:03 | MG ---
cc: ALYSSA LUNA M.D. Lab No: Date: 07/27/2016 Age: Sex: F Race: REQUESTING PHYSICIAN Dr. Loya. INTRODUCTION An EEG was obtained on this 86-year-old patient being evaluated for possible seizures. DESCRIPTION The patient is described as awake and asleep. The study shows low amplitude rhythms with lack of alpha activity. There are some theta and delta rhythms bilaterally. There is low amplitude beta activity. Alpha rhythms are seen occasionally and never dominant in this tracing. There is a pacer artifact. At times there is more pronounced delta activity and artifact. Some faster rhythms are seen when the patient is stimulated. INTERPRETATION Abnormal EEG because of diffuse slowing suggestive of a diffuse disturbance of cerebral function. This is probably moderate to severe. No epileptiform features present. MD HELLEN Humphrey/KK /5:51 PM /5:59 PM
--- NOTE | 2016-07-27 21:34 | HHI.PR ---
Addendum to Inpatient Note Addendum Reason: Additional Documentation Additional Information I was called by pt's nurse with concerns of patient's blood pressure being around 190s over 100s. Patient had a stroke alert today earlier. Chart reviewed. Per notes, patient was supposed to be on permissive hypertension. However nursing staff reported that daytime nurse spoke to the neurologist earlier during the day and neurologist wanted the blood pressure to be better controlled around normotensive. However there was no orders written. Imaging studies done at the time of stroke alert did not reveal any acute pathologies. MRI cannot be done since patient has some contraindications. Therefore I had initially advised nighttime nursing staff to verify with the neurologist regarding blood pressure parameters whether they truly believe this was a stroke alert/stroke symptoms. Nursing staff just called me back stating that they spoke to neurologist concrete products dispatcher tonvanessa who actually was present at the bedside at the time of stroke alert today. The neurologist impression is that this was not a stroke. He would like the patient to be better controlled with blood pressure and to be normotensive. Patient's lab pressure readings in the past 24 hours reviewed. Thus will start patient on hydralazine 10 mg IV every 30 minutes when necessary for blood pressure greater than 160/90. Hold if the heart rate is greater than 110. Start on labetalol 10 mg IV every 20 minutes when necessary for blood pressure greater than 160/90. Hold if the heart rate is less than 70. Discontinue all other when necessary blood pressure medications and its parameters. Discontinue maintenance IV fluids. Bessie Flores MD Jul 27, 2016 21:34
[2016-07-27] MEDS: hydrALAZINE HCL 20 MG/ML VIAL IV PUSH PRN (21:41)
[2016-07-28] VITALS (12 sets, daily range): BP systolic 156–202; BP diastolic 66–102; PULSE 68–94; RESP 12–25; TEMP 97.7–98.5; O2SAT 99–100
[2016-07-28] MEDS: PIPERACIL-TAZO 2.25 GM PREMIX 50 ML IV SCH ×5 (00:23→23:59)
[2016-07-28] MEDS: LABETALOL HCL 100 MG/20 ML VIAL IV PUSH PRN ×5 (00:24→06:30)
[2016-07-28] MEDS: hydrALAZINE HCL 20 MG/ML VIAL IV PUSH PRN ×2 (02:03→05:10)
[2016-07-28] MEDS: DILTIAZEM HCL 60 MG TAB TUBE SCH ×2 (03:00→08:11)
[2016-07-28] MEDS: levETIRAcetam 500 MG/NS 100 ML IV SCH ×4 (04:07→15:37)
[2016-07-28 05:29] LABS: AUTOMATED NEUTROPHIL # 5.5 TH/MM3 (1.8-7.7); BASOPHIL % 0.6 % (0.0-2.0); EOSINOPHIL # 0.2 TH/MM3 (0-0.4); EOSINOPHIL % 2.7 % (0.0-4.0); HEMATOCRIT 32.1 % (35.0-46.0); LYMPH % 3.2 % (9.0-44.0); LYMPHOCYTE # 0.2 TH/MM3 (1.0-4.8); MEAN CELL VOLUME 77.1 FL (80.0-100.0); MEAN CORPUSCULAR HEMOGLOBIN 25.4 PG (27.0-34.0); MEAN CORPUSCULAR HGB CONC 32.9 % (32.0-36.0); MONO % 12.5 % (0.0-8.0); PLATELET COUNT 229 TH/MM3 (150-450); RED BLOOD COUNT 4.16 MIL/MM3 (4.00-5.30); RED CELL DISTRIBUTION WIDTH 16.8 % (11.6-17.2); WHITE BLOOD COUNT 6.8 TH/MM3 (4.0-11.0)
[2016-07-28 05:59] LABS: BICARBONATE 26.5 MEQ/L (21.0-32.0); MAGNESIUM 1.8 MG/DL (1.5-2.5); POTASSIUM 3.4 MEQ/L (3.5-5.1)
[2016-07-28] MEDS: HYDROmorphone HCL PF 1 MG/ML VIAL IV PUSH PRN (06:00)
[2016-07-28] MEDS: hydrALAZINE HCL 50 MG TAB TUBE SCH ×3 (06:00→22:19)
[2016-07-28 06:15] LABS: HEMO FLAGS AUTO DIFF
[2016-07-28 08:07] LABS: BANDS 2 % (0-6); BASOPHILS 2 % (0-2); EOSINOPHILS 1 % (0-4); NEUTROPHIL # MANUAL DIFF 5.4 TH/MM3 (1.8-7.7); POLYS (SEG NEUTROPHILS) 78 % (16-70); WBC DIFF SAMPLE 100
[2016-07-28 08:08] LABS: KERATOCYTES OCC (NORMAL); OVALOCYTES 1+ (NORMAL); PLATELET ESTIMATE SMEAR NORMAL (NORMAL); PLATELET MORPHOLOGY NORMAL (NORMAL); SCAN/DIFF FINAL DIFF MANUAL; TARGET CELLS 1+ (NORMAL)
[2016-07-28] MEDS: SODIUM CHLORIDE 0.9% FLUSH 5 ML FLUSH IV FLUSH SCH ×2 (08:11→20:12)
[2016-07-28] MEDS: cloNIDine HCL 0.3 MG TAB TUBE SCH ×2 (08:11→20:11)
[2016-07-28] MEDS: APIXABAN 2.5 MG TABLET OG-TUBE SCH ×2 (08:11→20:12)
[2016-07-28] MEDS: METOPROLOL TARTRATE 50 MG TAB TUBE SCH ×2 (08:11→20:12)
[2016-07-28] MEDS: DOCUSATE SODIUM 100 MG CAP TUBE SCH ×2 (08:11→20:11)
--- NOTE | 2016-07-28 08:16 | HHI.PR ---
Objective Vital Signs Date Time Temp Pulse Resp B/P Pulse Ox O2 Delivery O2 Flow Rate FiO2 07/28/16 06:40 19 07/28/16 06:00 79 07/28/16 04:00 94 07/28/16 04:00 97.7 94 25 197/102 100 07/28/16 02:00 79 07/28/16 00:05 100 Nasal Cannula 2.00 07/28/16 00:00 80 07/28/16 00:00 97.7 80 12 176/87 100 07/27/16 22:34 99 Nasal Cannula 2.00 07/27/16 20:00 97.5 71 9 175/97 100 Manual Cuff/Auscultation 07/27/16 20:00 82 07/27/16 16:00 98.0 69 22 153/84 100 07/27/16 15:00 69 07/27/16 14:00 70 07/27/16 12:50 69 07/27/16 12:00 96.4 70 18 155/86 99 07/27/16 08:28 96 Nasal Cannula 21 I/O 07/27/16 07/27/16 07/27/16 07/28/16 07/28/16 07/28/16 07:00 15:00 23:00 07:00 15:00 23:00 Intake Total 380 ml 128 ml 1425 ml 516 ml Balance 380 ml 128 ml 1425 ml 516 ml Intake Oral 380 ml 0 ml 0 ml IV Total 128 ml 1425 ml 516 ml # Voids 4 1 2 4 # Bowel Movements 0 0 0 Result Diagram: 07/28/16 0455 07/28/16 0455 Objective Remarks vff face sym generally weak but moves all 4 ext some tongue midline speech nl no droop Assessment and Plan Assessment and Plan imp episode yest unresponsive and ? r droop cleared ct and [id number] eeg x 2 neg but i started keppra in case small sz unwitnessed check ua Zi Gandhi MD Jul 28, 2016 08:16
--- NOTE | 2016-07-28 09:05 | HHI.PR ---
Subjective Remarks In bed. Back at baseline. Says she feels very weak , generalized weakness no focal weakness. No urbano in vision. Denies headache. Denies chest pain, nausea, vomiting, diarrhea or constipation. Back at her baseline. Objective Vitals Vital Signs Date Time Temp Pulse Resp B/P Pulse Ox O2 Delivery O2 Flow Rate FiO2 07/28/16 06:40 19 07/28/16 06:00 79 07/28/16 04:00 94 07/28/16 04:00 97.7 94 25 197/102 100 07/28/16 02:00 79 07/28/16 00:05 100 Nasal Cannula 2.00 07/28/16 00:00 80 07/28/16 00:00 97.7 80 12 176/87 100 07/27/16 22:34 99 Nasal Cannula 2.00 07/27/16 20:00 97.5 71 9 175/97 100 Manual Cuff/Auscultation 07/27/16 20:00 82 07/27/16 16:00 98.0 69 22 153/84 100 07/27/16 15:00 69 07/27/16 14:00 70 07/27/16 12:50 69 07/27/16 12:00 96.4 70 18 155/86 99 I/O 07/27/16 07/27/16 07/27/16 07/28/16 07/28/16 07/28/16 07:00 15:00 23:00 07:00 15:00 23:00 Intake Total 380 ml 128 ml 1425 ml 516 ml Balance 380 ml 128 ml 1425 ml 516 ml Intake Oral 380 ml 0 ml 0 ml IV Total 128 ml 1425 ml 516 ml # Voids 4 1 2 4 # Bowel Movements 0 0 0 Result Diagram: 07/28/16 0455 07/28/16 0455 Imaging Last Impressions Head CTA 07/27/16 1335 Signed Impressions: Service Date/Time: Wednesday, July 27, 2016 13:52 - CONCLUSION: Arterial calcification and luminal irregularity characteristic of atherosclerotic vascular disease. No evidence of significant luminal stenosis or obstructive vascular disease. No evidence of aneurysm Mc Perez MD Neck CTA 07/27/16 0000 Signed Impressions: Service Date/Time: Wednesday, July 27, 2016 13:52 - CONCLUSION: Mild calcified plaque in both carotid bifurcations. No evidence of hemodynamically significant stenosis. Focal calcified plaque and mild narrowing of the origin left vertebral artery. Mc Perez MD Head CT 07/27/16 0000 Signed Impressions: Service Date/Time: Wednesday, July 27, 2016 11:57 - CONCLUSION: Stable noncontrast head CT. No acute finding is identified. Chronic changes include atrophy and moderate periventricular white matter low attenuation characteristic of chronic microvascular ischemia. Mckinley Elizalde MD Foot X-Ray 07/26/16 0000 Signed Impressions: Service Date/Time: Tuesday, July 26, 2016 13:47 - CONCLUSION: 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 Mc Perez MD Carotid Artery Ultrasound 07/22/16 0000 Signed Impressions: Service Date/Time: July 20:38 - CONCLUSION: No evidence for hemodynamically significant stenosis. Bob Adler MD Chest X-Ray 07/21/16 1557 Signed Impressions: Service Date/Time: Thursday, July 21, 2016 16:14 - CONCLUSION: New consolidative changes in the left base with air bronchograms. Suspicious for an inflammatory process. Kwaku Gutiérrez MD FACR Abdomen/Pelvis CT 07/21/16 0000 Signed Impressions: Service Date/Time: Thursday, July 21, 2016 16:34 - CONCLUSION: 1. Severely limited exam because of patient motion. Free air and/or abscess in the abdomen cannot be excluded. Lack of intravenous contrast makes detection of subtle bowel pathology difficult. 2. Large bolus of stool is seen in the rectum. 3. Consolidative changes are seen in the left base. Kwaku Gutiérrez MD FACR Objective Remarks General appearance: Elderly 86 yo AA female, in bed, appears in nad, pleasantly confused follows commands. Head: Normocephalic. Atraumatic. EENT: Pupils equal round and reactive to light. EOMI. Nose without drainage. Airway intact. Throat without injection. Cardiovascular: Regular rate and rhythm. Grade 2 systolic murmur appreciated. Respiratory: Lungs clear to auscultation bilaterally. No wheezes or rhonchi. Abdomen: Soft, nontender, nondistended. No peritoneal signs. Musculoskeletal: No gross deformities. No edema. Skin: No obvious rashes or erythema. Neuro: Sensory and motor grossly intact. Cranial nerves II through XII grossly intact. Moves all extremities. Follows commands. Psych: Appropriate mood and affect A/P Problem List: (1) Acute kidney injury ICD Code: N17.9 Status: Acute (2) Altered mental status ICD Code: R41.82 Status: Acute (3) Pneumonia ICD Code: J18.9 Status: Acute (4) Sepsis ICD Code: A41.9 Status: Resolved (5) CKD (chronic kidney disease) stage 3, GFR 30-59 ml/min ICD Code: N18.3 Status: Chronic (6) Respiratory failure ICD Code: J96.90 Status: Resolved (7) Acute on chronic congestive heart failure ICD Code: I50.9 Status: Acute Assessment and Plan Altered mental status Poss seizures r/o CVA Neurology consulted. Treat PNA. - neuro checks., move patient to the floor for closer obs per neurology Stat CBC, BMP, trops. replace electrolytes per ICU protocol. Trops trending down EEG x2 no evidence of seizure however continue keppra per neurology as patient might have small seizures Recent ECHO 07/09 with EF of 25-30%. Recent carotid US reviewed and no significant stenosis. Cta neck reviewed. CT head reviewed no signs of hemorrhagic stroke. CTA head reviewed no new ischemic changes. Keep normotensive per neuro recommendations. - PT/ OT/ST. Passed swallow evaluation Sepsis/ Hospital-acquired pneumonia CXR with PNA in left lower lobe. The patient required intubation for hypoxic hypercapnic respiratory failure. Successfully extubated. - Continue vancomycin and Zosyn. - incentive spirometry. - oxygen and nebs as needed. - physical therapy. Hypertensive emergency BP still poorly controlled. - Continue hydralazine 50 mg every 8 hours, metoprolol 50 every 12, Cardizem 60 every 6, clonidine 0.3 every 12. - clonidine and hydralazine as needed. - pt not a candidate for MRA or CTA to rule out renal artery stenosis s/t renal function. US not available here. Outpt follow-up recommended. Acute on chronic kidney disease CKD, stage III. Creatinine stable. - remove Coates. - monitor BMP and avoid nephrotoxic agents. Atrial fibrillation Rate controlled. - Continue Eliquis. CHF Patient with recent placement of biventricular pacer. - Careful monitoring of volume status. - continue cardiac regimen. Foot pain On the left. Exam unremarkable. - left foot x ray pending. PPx: Eliquis. Discharge Planning Awaiting clinical improvement. Will need SNF. Intubation/ extubation Transfer to the floor for close neuro monitoring. Discussed with the patient, nurse Transfer to neuro floor Problem Qualifiers (1) Altered mental status: Qualified Code: R40.1 - Stupor (2) Pneumonia: Qualified Code: J18.1 - Pneumonia of left lower lobe due to infectious organism (3) Sepsis: Qualified Code: A41.9 - Sepsis, due to unspecified organism (4) Respiratory failure: Qualified Code: J96.01 - Acute respiratory failure with hypoxia and hypercapnia Violet Loya MD Jul 28, 2016 09:05
[2016-07-28] MEDS: VANCOMYCIN INJ 1,500 MG in SODIUM CHLORID 0.9% 500 ML INJ 500 ML IV SCH (11:50)
[2016-07-28] MEDS: DILTIAZEM HCL 90 MG TAB TUBE SCH ×2 (15:00→20:11)
--- NOTE | 2016-07-28 18:47 | EKG ---
Date Performed: 07/27/2016 Time Performed: 13:28:01 PTAGE: 86 years EKG: ELECTRONIC VENTRICULAR PACEMAKER ABNORMAL RHYTHM ECG PREVIOUS TRACING : 07/22/2016 20.43 DOCTOR: Rahat Kyle Interpretating Date/Time 07/28/2016 18:42:02
[2016-07-28] MEDS: guaiFENesin/CODEINE SYRUP 200 MG/20 MG/10 ML CUP PO PRN (20:11)
[2016-07-29] VITALS (13 sets, daily range): BP systolic 136–158; BP diastolic 65–82; PULSE 68–72; RESP 15–24; TEMP 98–98.9; O2SAT 97–100
[2016-07-29] MEDS: levETIRAcetam 500 MG/NS 100 ML IV SCH ×2 (03:21)
[2016-07-29] MEDS: DILTIAZEM HCL 90 MG TAB TUBE SCH ×4 (03:21→20:15)
[2016-07-29 04:46] LABS: BICARBONATE 27.5 MEQ/L (21.0-32.0); POTASSIUM 3.6 MEQ/L (3.5-5.1)
[2016-07-29] MEDS: PIPERACIL-TAZO 2.25 GM PREMIX 50 ML IV SCH ×4 (05:39→22:53)
[2016-07-29] MEDS: guaiFENesin/CODEINE SYRUP 200 MG/20 MG/10 ML CUP PO PRN ×3 (05:39→16:29)
[2016-07-29] MEDS: hydrALAZINE HCL 50 MG TAB TUBE SCH ×3 (05:39→22:53)
[2016-07-29] MEDS ORDERED: LEVE500 PO (07:59)
[2016-07-29] MEDS ORDERED: LORA-392 PO (07:59)
--- NOTE | 2016-07-29 08:01 | HHI.DS ---
Discharge Summary Admission Date Jul 21, 2016 at 18:30 Discharge Date: Jul 30, 2016 Admitting Diagnosis Respiratory Failure, Sepsis, AMS, Pneumonia (1) Seizure ICD Code: R56.9 Diagnosis: Principal (2) Hypertensive emergency ICD Code: I16.1 Diagnosis: Principal (3) Acute kidney injury ICD Code: N17.9 Diagnosis: Principal (4) Pneumonia ICD Code: J18.9 Diagnosis: Principal (5) NSVT (nonsustained ventricular tachycardia) ICD Code: I47.2 Diagnosis: Principal (6) Sepsis ICD Code: A41.9 Diagnosis: Secondary (7) CKD (chronic kidney disease) stage 3, GFR 30-59 ml/min ICD Code: N18.3 Diagnosis: Secondary (8) Respiratory failure ICD Code: J96.90 Diagnosis: Secondary (9) Altered mental status ICD Code: R41.82 Diagnosis: Secondary (10) Biventricular ICD (implantable cardioverter-defibrillator) in place ICD Code: Z95.810 Diagnosis: Secondary Procedures none Brief History - From Admission 86 yo AAF with PMH of HTN, dyslipidemia, Atrial fibrillation s/p pacemaker on anticoagulation with Eliquis, CKD stage III who presented to [facility] ED from home after her daughter and son summoned [facility] for altered mental status. She was intubated upon arrival for airway protection. I called her daughter to obtain history. Patient was most recently admitted to [facility] on with chest pain and acute on chronic systolic heart failure. She underwent pacemaker exchange to biventricular pacer with defibrillator . Upon discharge she was sent to the [facility] rehabilitation 07/03/16. Reportedly she was able to ambulate into rehabilitation with a walker according to her daughter. However, her condition has reportedly deteriorated at rehabilitation and she was not able to participate in physical therapy after the first couple of days there. She was no longer able to ambulate. Her daughter came down from [place] to pick her up from rehab when she was discharged 07/19/16. Her daughter and son were caring for her at a private residence. She was moaning throughout the night 07/19/16. On 07/20/16 her daughter noticed she had "rattling in her chest". She was able to speak some and indicated to her daughter that she did not want to be taken back to [place] and that she didn't feel like eating. She had no noted seizure activity. Her family was not able to discern any weakness, although they did say they thought her left arm dropped down when they picked it up. They deny prior h/o stroke. Workup in ED reveals CXR with left lower lobe consolidation. CT brain showed no acute abnormality. CT abdomen and pelvis demonstrated no acute abnormality with large stool in the rectum. Exam was limited due to motion artifact. Troponin is elevated 0.58. EKG is irregular, paced. She has been sedated on propofol. Blood pressure is 238/ 113. She is withdrawing weakly with all extremities. Her daughter also expresses concern that she may have been medicated with narcotics [facility] however she states she has not received any since she was discharged 07/19. CBC/BMP: 07/28/16 0455 07/29/16 0330 Significant Findings Laboratory Tests Test 07/27/16 07/27/16 07/27/16 07/28/16 05:45 11:40 12:04 04:55 Creatinine 1.01 MG/DL 1.01 MG/DL (0.50-1.00) (0.50-1.00) Estimat Glomerular Filtration 63 ML/MIN (>89) 63 ML/MIN (>89) Rate Random Glucose 116 MG/DL (74-106) Red Blood Count 3.94 MIL/MM3 (4.00-5.30) Hemoglobin 9.8 GM/DL 10.6 GM/DL (11.6-15.3) (11.6-15.3) Bedside Hemoglobin 11.2 G/DL (12.0-17.0) Hematocrit 30.1 % 32.1 % (35.0-46.0) (35.0-46.0) Bedside Hematocrit 33.0 % (38.0-51.0) Mean Corpuscular Volume 76.4 FL 77.1 FL (80.0-100.0) (80.0-100.0) Mean Corpuscular Hemoglobin 24.9 PG 25.4 PG (27.0-34.0) (27.0-34.0) Red Cell Distribution Width 17.5 % (11.6-17.2) Neutrophils (%) (Auto) 75.9 % 81.0 % (16.0-70.0) (16.0-70.0) Monocytes (%) (Auto) 11.8 % 12.5 % (0.0-8.0) (0.0-8.0) Lymphocytes # (Auto) 0.5 TH/MM3 0.2 TH/MM3 (1.0-4.8) (1.0-4.8) Target Cells 1+ (NORMAL) 1+ (NORMAL) Ovalocytes 1+ (NORMAL) 1+ (NORMAL) Acanthocytes OCC (NORMAL) Keratocytes OCC (NORMAL) OCC (NORMAL) Prothrombin Time 12.4 SEC (9.8-11.6) Bedside Sodium 136 MMOL/L (138-146) Bedside Potassium 3.4 MMOL/L (3.5-4.9) Bedside Chloride 96 MMOL/L (98-109) Bedside Glucose 107 MG/DL (60-95) Phosphorus Level 2.2 MG/DL (2.5-4.9) Troponin I 0.39 NG/ML (0.02-0.05) Blood Gas HCO3 29 mmol/L (22-26) Blood Gas Base Excess 5.6 mmol/L (-2-2) Arterial Blood pH 7.49 (7.380-7.420) Blood Gas Hemoglobin 10.1 G/DL (12.0-16.0) Lymphocytes (%) (Auto) 3.2 % (9.0-44.0) Neutrophils % (Manual) 78 % (16-70) Lymphocytes % 8 % (9-44) Monocytes % 9 % (0-8) Potassium Level 3.4 MEQ/L (3.5-5.1) Test 07/29/16 03:30 Creatinine 1.36 MG/DL (0.50-1.00) Estimat Glomerular Filtration 44 ML/MIN (>89) Rate Imaging Last Impressions Head CTA 07/27/16 1335 Signed Impressions: Service Date/Time: Wednesday, July 27, 2016 13:52 - CONCLUSION: Arterial calcification and luminal irregularity characteristic of atherosclerotic vascular disease. No evidence of significant luminal stenosis or obstructive vascular disease. No evidence of aneurysm Mc Perez MD Neck CTA 07/27/16 0000 Signed Impressions: Service Date/Time: Wednesday, July 27, 2016 13:52 - CONCLUSION: Mild calcified plaque in both carotid bifurcations. No evidence of hemodynamically significant stenosis. Focal calcified plaque and mild narrowing of the origin left vertebral artery. Mc Perez MD Head CT 07/27/16 0000 Signed Impressions: Service Date/Time: Wednesday, July 27, 2016 11:57 - CONCLUSION: Stable noncontrast head CT. No acute finding is identified. Chronic changes include atrophy and moderate periventricular white matter low attenuation characteristic of chronic microvascular ischemia. Mckinley Elizalde MD Foot X-Ray 07/26/16 0000 Signed Impressions: Service Date/Time: Tuesday, July 26, 2016 13:47 - CONCLUSION: 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 Mc Perez MD Carotid Artery Ultrasound 07/22/16 0000 Signed Impressions: Service Date/Time: July 20:38 - CONCLUSION: No evidence for hemodynamically significant stenosis. Bob Adler MD Chest X-Ray 07/21/16 1557 Signed Impressions: Service Date/Time: Thursday, July 21, 2016 16:14 - CONCLUSION: New consolidative changes in the left base with air bronchograms. Suspicious for an inflammatory process. Kwaku Gutiérrez MD FACR Abdomen/Pelvis CT 07/21/16 0000 Signed Impressions: Service Date/Time: Thursday, July 21, 2016 16:34 - CONCLUSION: 1. Severely limited exam because of patient motion. Free air and/or abscess in the abdomen cannot be excluded. Lack of intravenous contrast makes detection of subtle bowel pathology difficult. 2. Large bolus of stool is seen in the rectum. 3. Consolidative changes are seen in the left base. Kwaku Gutiérrez MD FACR PE at Discharge General appearance: Elderly 86 yo AA female, in bed, appears in nad, pleasantly confused follows commands. Head: Normocephalic. Atraumatic. EENT: Pupils equal round and reactive to light. EOMI. Nose without drainage. Airway intact. Throat without injection. Cardiovascular: Regular rate and rhythm. Grade 2 systolic murmur appreciated. Respiratory: Lungs clear to auscultation bilaterally. No wheezes or rhonchi. Abdomen: Soft, nontender, nondistended. No peritoneal signs. Musculoskeletal: No gross deformities. No edema. Skin: No obvious rashes or erythema. Neuro: Sensory and motor grossly intact. Cranial nerves II through XII grossly intact. Moves all extremities. Follows commands. Psych: Appropriate mood and affect Hospital Course Altered mental status Poss seizures r/o CVA Neurology consulted. Treat PNA. - neuro checks., move patient to the floor for closer obs per neurology Stat CBC, BMP, trops. replace electrolytes per ICU protocol. Trops trending down EEG x2 no evidence of seizure however continue keppra per neurology as patient might have small seizures Recent ECHO 07/09 with EF of 25-30%. Recent carotid US reviewed and no significant stenosis. Cta neck reviewed. CT head reviewed no signs of hemorrhagic stroke. CTA head reviewed no new ischemic changes. Keep normotensive per neuro recommendations. - PT/ OT/ST. Passed swallow evaluation Sepsis/ Hospital-acquired pneumonia CXR with PNA in left lower lobe. The patient required intubation for hypoxic hypercapnic respiratory failure. Successfully extubated. - Continue vancomycin and Zosyn. - incentive spirometry. - oxygen and nebs as needed. - physical therapy. Hypertensive emergency BP better controlled. - Continue hydralazine 50 mg every 8 hours, metoprolol 50 every 12, increased to Cardizem 90 every 6, clonidine 0.3 every 12. - clonidine and hydralazine as needed. - pt not a candidate for MRA or CTA to rule out renal artery stenosis s/t renal function. US not available here. Outpt follow-up recommended. Acute on chronic kidney disease CKD, stage III. Creatinine stable. - remove Coates. - monitor BMP and avoid nephrotoxic agents. Atrial fibrillation Rate controlled. - Continue Eliquis. CHF Patient with recent placement of biventricular pacer. - Careful monitoring of volume status. - continue cardiac regimen. Foot pain On the left. Exam unremarkable. - left foot x ray pending. PPx: Eliquis. Discharge Planning Awaiting clinical improvement. Will need SNF. Intubation/ extubation Transfer to the floor for close neuro monitoring. Discussed with the patient, nurse Improving, plan to DC to SNF, however the patient/ family wants the patient to go home with home health . Discussed with the case management as well. Plan to DC home with home health patient improved, was discharged in fairly stable condition to follow up as OP with PCP and consultants. Pt Condition on Discharge: Stable Discharge Disposition: Discharge to SNF Discharge Time: > 30 minutes Discharge Instructions DIET: Follow Instructions for: Heart Healthy Diet Speech Therapy-Diet Recommends: Soft Activities you can perform: Regular-No Restrictions Follow up Referrals: Cardiology - 1 Week Neurology - 2 Weeks PCP Follow-up - 3-5 Days New Medications: Cefuroxime (Ceftin) 500 Mg Tab 500 MG PO BID Infection #10 Ref 0 TAB Lactobacillus Acidophilus (Lactinex) 1 Chew 1 TAB CHEW DAILY Nutritional Supplement #15 Ref 0 TAB Diltiazem (Diltiazem) 90 Mg Tab 90 MG PO Q6H Blood Pressure Management #120 TAB Levetiracetam (Keppra) 500 Mg Tab 500 MG PO Q12H seizures #60 TAB Continued Medications: Apixaban (Eliquis) 2.5 Mg Tab 2.5 MG PO BID Blood Clot Prevention Ref 0 TAB Bisacodyl Supp (Dulcolax Supp) 10 Mg Supp 10 MG RECTAL DAILY PRN CONSTIPATION #12 Ref 0 SUPP Cholecalciferol (Vitamin D-3) 1,000 Unit Tab 5000 UNITS PO DAILY #30 Ref 0 TAB Clonidine (Clonidine) 0.3 Mg Tab 0.3 MG PO BID Blood Pressure Management #60 Ref 0 TAB Escitalopram (Lexapro) 10 Mg Tab 10 MG PO DAILY #30 Ref 0 TAB Hydralazine (Hydralazine) 50 Mg Tab 50 MG PO TID Take with a meal Blood Pressure Management Ref 0 TAB Lorazepam (Ativan) 0.5 Mg Tab 0.5 MG PO Q6H PRN ANXIETY AND/OR AGITATION #20 Ref 0 TAB (This prescription has been renewed) Metoprolol Tartrate (Metoprolol Tartrate) 50 Mg Tab 50 MG PO BID #60 Ref 0 TAB Ramipril (Ramipril) 5 Mg Cap 5 MG PO DAILY htn #30 CAP Trazodone (Trazodone) 150 Mg Tab 150 MG PO HS Control Depression #30 Ref 0 TAB Discontinued Medications: Diltiazem ER 24 HR (Diltiazem ER 24 HR) 240 Mg Caper 240 MG PO DAILY #30 Ref 0 CAP Violet Loya MD Jul 29, 2016 08:01
[2016-07-29] MEDS: cloNIDine HCL 0.3 MG TAB TUBE SCH ×2 (08:02→20:15)
[2016-07-29] MEDS: APIXABAN 2.5 MG TABLET OG-TUBE SCH ×2 (08:02→20:16)
[2016-07-29] MEDS: METOPROLOL TARTRATE 50 MG TAB TUBE SCH ×2 (08:02→20:15)
[2016-07-29] MEDS: DOCUSATE SODIUM 100 MG CAP TUBE SCH ×2 (08:03→20:15)
[2016-07-29] MEDS: SODIUM CHLORIDE 0.9% FLUSH 5 ML FLUSH IV FLUSH SCH ×2 (08:03→20:16)
[2016-07-29] MEDS ORDERED: CEFT500T3 PO (08:04)
[2016-07-29] MEDS ORDERED: LACTCHW3 CHEW (08:04)
--- NOTE | 2016-07-29 08:21 | HHI.PR ---
Subjective Remarks 200/ bp yest Objective Vital Signs Date Time Temp Pulse Resp B/P Pulse Ox O2 Delivery O2 Flow Rate FiO2 07/29/16 06:00 72 07/29/16 04:00 98.6 69 19 158/65 100 07/29/16 04:00 69 07/29/16 02:00 69 07/29/16 00:00 69 07/29/16 00:00 98.6 69 18 139/80 100 07/28/16 22:00 69 07/28/16 20:00 69 07/28/16 20:00 98.5 69 18 156/66 100 07/28/16 19:47 100 21 07/28/16 16:00 98.0 74 18 156/66 100 07/28/16 12:00 98.0 75 18 185/94 100 07/28/16 12:00 79 07/28/16 10:00 68 I/O 07/28/16 07/28/16 07/28/16 07/29/16 07/29/16 07/29/16 07:00 15:00 23:00 07:00 15:00 23:00 Intake Total 516 ml 995 ml 283 ml 535 ml Balance 516 ml 995 ml 283 ml 535 ml Intake Oral 400 ml 240 ml IV Total 516 ml 595 ml 283 ml 295 ml # Voids 4 4 1 2 # Bowel Movements 0 1 0 0 Result Diagram: 07/28/16 0455 07/29/16 0330 Objective Remarks vff face sym moves all 4 ext stronger today voice strong tongue midline speech nl no droop Assessment and Plan Assessment and Plan imp she tells me she has sz hx!!! ox3 today ct and [id number] eeg x 2 neg but i started keppra in case small sz unwitnessed check ua min pos ok dc by me if bp stable lower she can run to 120/ can fu office if needed Zi Gandhi MD Jul 29, 2016 08:21
[2016-07-29] MEDS ORDERED: DILT90TA PO (11:48)
[2016-07-29] MEDS ORDERED: PHARMACY ORDERED LAB XX ONE (12:45)
[2016-07-29] MEDS: VANCOMYCIN INJ 1,500 MG in SODIUM CHLORID 0.9% 500 ML INJ 500 ML IV SCH (16:16)
[2016-07-29] MEDS: levETIRAcetam 500 MG TAB PO SCH (16:16)
--- NOTE | 2016-07-29 18:22 | HHI.PR ---
Subjective Remarks Late entry. 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 She says she feels much better. No headahc.e seizuer, motor deficit. No chage in vision. Denies chest pain, n/v/ d/c. BP is better controlled. Objective Vitals Vital Signs Date Time Temp Pulse Resp B/P Pulse Ox O2 Delivery O2 Flow Rate FiO2 07/29/16 18:00 69 07/29/16 16:00 68 07/29/16 16:00 98.4 68 23 137/65 100 07/29/16 14:00 69 07/29/16 13:24 100 21 07/29/16 12:00 98.1 69 24 136/70 100 07/29/16 12:00 69 07/29/16 10:00 69 07/29/16 08:00 98.0 69 24 147/82 99 07/29/16 08:00 69 07/29/16 06:00 72 07/29/16 04:00 98.6 69 19 158/65 100 07/29/16 04:00 69 07/29/16 02:00 69 07/29/16 00:00 69 07/29/16 00:00 98.6 69 18 139/80 100 07/28/16 22:00 69 07/28/16 20:00 69 07/28/16 20:00 98.5 69 18 156/66 100 07/28/16 19:47 100 21 I/O 07/28/16 07/28/16 07/28/16 07/29/16 07/29/16 07/29/16 07:00 15:00 23:00 07:00 15:00 23:00 Intake Total 516 ml 995 ml 283 ml 535 ml 776 ml Balance 516 ml 995 ml 283 ml 535 ml 776 ml Intake Oral 400 ml 240 ml 600 ml IV Total 516 ml 595 ml 283 ml 295 ml 176 ml # Voids 4 4 1 2 2 # Bowel Movements 0 1 0 0 0 Result Diagram: 07/28/16 0455 07/29/16 0330 Imaging Last Impressions Head CTA 07/27/16 1335 Signed Impressions: Service Date/Time: Wednesday, July 27, 2016 13:52 - CONCLUSION: Arterial calcification and luminal irregularity characteristic of atherosclerotic vascular disease. No evidence of significant luminal stenosis or obstructive vascular disease. No evidence of aneurysm Mc F. Ana, MD Neck CTA 07/27/16 0000 Signed Impressions: Service Date/Time: Wednesday, July 27, 2016 13:52 - CONCLUSION: Mild calcified plaque in both carotid bifurcations. No evidence of hemodynamically significant stenosis. Focal calcified plaque and mild narrowing of the origin left vertebral artery. Mc Perez MD Head CT 07/27/16 0000 Signed Impressions: Service Date/Time: Wednesday, July 27, 2016 11:57 - CONCLUSION: Stable noncontrast head CT. No acute finding is identified. Chronic changes include atrophy and moderate periventricular white matter low attenuation characteristic of chronic microvascular ischemia. Mckinley Elizalde MD Foot X-Ray 07/26/16 0000 Signed Impressions: Service Date/Time: Tuesday, July 26, 2016 13:47 - CONCLUSION: 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 Mc Perez MD Carotid Artery Ultrasound 07/22/16 0000 Signed Impressions: Service Date/Time: July 20:38 - CONCLUSION: No evidence for hemodynamically significant stenosis. Bob Adler MD Chest X-Ray 07/21/16 1557 Signed Impressions: Service Date/Time: Thursday, July 21, 2016 16:14 - CONCLUSION: New consolidative changes in the left base with air bronchograms. Suspicious for an inflammatory process. Kwaku Gutiérrez MD FACR Abdomen/Pelvis CT 07/21/16 0000 Signed Impressions: Service Date/Time: Thursday, July 21, 2016 16:34 - CONCLUSION: 1. Severely limited exam because of patient motion. Free air and/or abscess in the abdomen cannot be excluded. Lack of intravenous contrast makes detection of subtle bowel pathology difficult. 2. Large bolus of stool is seen in the rectum. 3. Consolidative changes are seen in the left base. Kwaku Gutiérrez MD FACR Objective Remarks General appearance: Elderly 86 yo AA female, in bed, appears in nad, pleasantly confused follows commands. Head: Normocephalic. Atraumatic. EENT: Pupils equal round and reactive to light. EOMI. Nose without drainage. Airway intact. Throat without injection. Cardiovascular: Regular rate and rhythm. Grade 2 systolic murmur appreciated. Respiratory: Lungs clear to auscultation bilaterally. No wheezes or rhonchi. Abdomen: Soft, nontender, nondistended. No peritoneal signs. Musculoskeletal: No gross deformities. No edema. Skin: No obvious rashes or erythema. Neuro: Sensory and motor grossly intact. Cranial nerves II through XII grossly intact. Moves all extremities. Follows commands. Psych: Appropriate mood and affect A/P Problem List: (1) Acute kidney injury ICD Code: N17.9 Status: Acute (2) Altered mental status ICD Code: R41.82 Status: Acute (3) Pneumonia ICD Code: J18.9 Status: Acute (4) Sepsis ICD Code: A41.9 Status: Resolved (5) CKD (chronic kidney disease) stage 3, GFR 30-59 ml/min ICD Code: N18.3 Status: Chronic (6) Respiratory failure ICD Code: J96.90 Status: Resolved (7) Acute on chronic congestive heart failure ICD Code: I50.9 Status: Acute Assessment and Plan Altered mental status Poss seizures r/o CVA Neurology consulted. Treat PNA. - neuro checks., move patient to the floor for closer obs per neurology Stat CBC, BMP, trops. replace electrolytes per ICU protocol. Trops trending down EEG x2 no evidence of seizure however continue keppra per neurology as patient might have small seizures Recent ECHO 07/09 with EF of 25-30%. Recent carotid US reviewed and no significant stenosis. Cta neck reviewed. CT head reviewed no signs of hemorrhagic stroke. CTA head reviewed no new ischemic changes. Keep normotensive per neuro recommendations. - PT/ OT/ST. Passed swallow evaluation Sepsis/ Hospital-acquired pneumonia CXR with PNA in left lower lobe. The patient required intubation for hypoxic hypercapnic respiratory failure. Successfully extubated. - Continue vancomycin and Zosyn. - incentive spirometry. - oxygen and nebs as needed. - physical therapy. Hypertensive emergency BP still poorly controlled. - Continue hydralazine 50 mg every 8 hours, metoprolol 50 every 12, Cardizem 60 every 6, clonidine 0.3 every 12. - clonidine and hydralazine as needed. - pt not a candidate for MRA or CTA to rule out renal artery stenosis s/t renal function. US not available here. Outpt follow-up recommended. Acute on chronic kidney disease CKD, stage III. Creatinine stable. - remove Coates. - monitor BMP and avoid nephrotoxic agents. Atrial fibrillation Rate controlled. - Continue Eliquis. CHF Patient with recent placement of biventricular pacer. - Careful monitoring of volume status. - continue cardiac regimen. Foot pain On the left. Exam unremarkable. - left foot x ray pending. PPx: Eliquis. Discharge Planning Awaiting clinical improvement. Will need SNF. Intubation/ extubation Transfer to the floor for close neuro monitoring. Discussed with the patient, nurse Trabsfer to the neuro floor when bed avalable . GOGO better controlled Improving, plan to DC to SNF. Discussed with the case management. Problem Qualifiers (1) Altered mental status: Qualified Code: R40.1 - Stupor (2) Pneumonia: Qualified Code: J18.1 - Pneumonia of left lower lobe due to infectious organism (3) Sepsis: Qualified Code: A41.9 - Sepsis, due to unspecified organism (4) Respiratory failure: Qualified Code: J96.01 - Acute respiratory failure with hypoxia and hypercapnia Violet Loya MD Jul 29, 2016 18:22
[2016-07-29] MEDS: BENZONATATE 100 MG CAP PO PRN (20:16)
[2016-07-30] VITALS (8 sets, daily range): BP systolic 126–168; BP diastolic 70–91; PULSE 69–70; RESP 16–20; TEMP 97.4–98.2; O2SAT 97–99
[2016-07-30] MEDS: levETIRAcetam 500 MG TAB PO SCH ×2 (03:51→15:07)
[2016-07-30] MEDS: guaiFENesin/CODEINE SYRUP 200 MG/20 MG/10 ML CUP PO PRN (03:51)
[2016-07-30] MEDS: DILTIAZEM HCL 90 MG TAB TUBE SCH ×3 (03:51→15:07)
[2016-07-30] MEDS: PIPERACIL-TAZO 2.25 GM PREMIX 50 ML IV SCH ×3 (05:38→17:04)
[2016-07-30] MEDS: hydrALAZINE HCL 50 MG TAB TUBE SCH ×2 (05:40→15:07)
[2016-07-30] MEDS ORDERED: PHARMACY ORDERED LAB XX ONE (06:00)
[2016-07-30 07:43] LABS: HEMATOCRIT 28.3 % (35.0-46.0); MEAN CELL VOLUME 76.3 FL (80.0-100.0); MEAN CORPUSCULAR HEMOGLOBIN 25.3 PG (27.0-34.0); MEAN CORPUSCULAR HGB CONC 33.2 % (32.0-36.0); PLATELET COUNT 246 TH/MM3 (150-450); RED BLOOD COUNT 3.71 MIL/MM3 (4.00-5.30); RED CELL DISTRIBUTION WIDTH 17.2 % (11.6-17.2); WHITE BLOOD COUNT 3.6 TH/MM3 (4.0-11.0)
--- NOTE | 2016-07-30 07:46 | HHI.PR ---
Subjective Remarks In bed appears in nad. She is satting well on room air. No sob, chest pain, nausea, vomiting, diarrhea or constipation. No new motor deficit. She still feels tired. Follows commands. No seizures. Objective Vitals Vital Signs Date Time Temp Pulse Resp B/P Pulse Ox O2 Delivery O2 Flow Rate FiO2 07/30/16 05:41 144/85 07/30/16 04:00 97.4 70 18 156/83 97 07/30/16 02:56 69 07/30/16 00:00 97.9 69 20 126/73 98 07/29/16 21:15 98.4 70 18 151/80 97 07/29/16 20:00 98.9 69 15 144/74 100 07/29/16 20:00 69 07/29/16 18:00 69 07/29/16 16:00 68 07/29/16 16:00 98.4 68 23 137/65 100 07/29/16 14:00 69 07/29/16 13:24 100 21 07/29/16 12:00 98.1 69 24 136/70 100 07/29/16 12:00 69 07/29/16 10:00 69 07/29/16 08:00 98.0 69 24 147/82 99 07/29/16 08:00 69 I/O 07/29/16 07/29/16 07/29/16 07/30/16 07/30/16 07/30/16 07:00 15:00 23:00 07:00 15:00 23:00 Intake Total 535 ml 776 ml 50 ml 120 ml Balance 535 ml 776 ml 50 ml 120 ml Intake Oral 240 ml 600 ml 120 ml IV Total 295 ml 176 ml 50 ml # Voids 2 2 2 1 # Bowel Movements 0 0 0 0 Result Diagram: 07/28/16 0455 07/29/16 0330 Imaging Last Impressions Head CTA 07/27/16 1335 Signed Impressions: Service Date/Time: Wednesday, July 27, 2016 13:52 - CONCLUSION: Arterial calcification and luminal irregularity characteristic of atherosclerotic vascular disease. No evidence of significant luminal stenosis or obstructive vascular disease. No evidence of aneurysm Mc Perez MD Neck CTA 07/27/16 0000 Signed Impressions: Service Date/Time: Wednesday, July 27, 2016 13:52 - CONCLUSION: Mild calcified plaque in both carotid bifurcations. No evidence of hemodynamically significant stenosis. Focal calcified plaque and mild narrowing of the origin left vertebral artery. Mc Perez MD Head CT 07/27/16 0000 Signed Impressions: Service Date/Time: Wednesday, July 27, 2016 11:57 - CONCLUSION: Stable noncontrast head CT. No acute finding is identified. Chronic changes include atrophy and moderate periventricular white matter low attenuation characteristic of chronic microvascular ischemia. Mckinley Elizalde MD Foot X-Ray 07/26/16 0000 Signed Impressions: Service Date/Time: Tuesday, July 26, 2016 13:47 - CONCLUSION: 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 Mc Perez MD Carotid Artery Ultrasound 07/22/16 0000 Signed Impressions: Service Date/Time: July 20:38 - CONCLUSION: No evidence for hemodynamically significant stenosis. Bob Adler MD Chest X-Ray 07/21/16 1557 Signed Impressions: Service Date/Time: Thursday, July 21, 2016 16:14 - CONCLUSION: New consolidative changes in the left base with air bronchograms. Suspicious for an inflammatory process. Kwaku Gutiérrez MD FACR Abdomen/Pelvis CT 07/21/16 0000 Signed Impressions: Service Date/Time: Thursday, July 21, 2016 16:34 - CONCLUSION: 1. Severely limited exam because of patient motion. Free air and/or abscess in the abdomen cannot be excluded. Lack of intravenous contrast makes detection of subtle bowel pathology difficult. 2. Large bolus of stool is seen in the rectum. 3. Consolidative changes are seen in the left base. Kwaku Gutiérrez MD FACR Objective Remarks General appearance: Elderly 86 yo AA female, in bed, appears in nad, pleasantly confused follows commands. Head: Normocephalic. Atraumatic. EENT: Pupils equal round and reactive to light. EOMI. Nose without drainage. Airway intact. Throat without injection. Cardiovascular: Regular rate and rhythm. Grade 2 systolic murmur appreciated. Respiratory: Lungs clear to auscultation bilaterally. No wheezes or rhonchi. Abdomen: Soft, nontender, nondistended. No peritoneal signs. Musculoskeletal: No gross deformities. No edema. Skin: No obvious rashes or erythema. Neuro: Sensory and motor grossly intact. Cranial nerves II through XII grossly intact. Moves all extremities. Follows commands. Psych: Appropriate mood and affect A/P Problem List: (1) Acute kidney injury ICD Code: N17.9 Status: Acute (2) Altered mental status ICD Code: R41.82 Status: Acute (3) Pneumonia ICD Code: J18.9 Status: Acute (4) Sepsis ICD Code: A41.9 Status: Resolved (5) CKD (chronic kidney disease) stage 3, GFR 30-59 ml/min ICD Code: N18.3 Status: Chronic (6) Respiratory failure ICD Code: J96.90 Status: Resolved (7) Acute on chronic congestive heart failure ICD Code: I50.9 Status: Acute Assessment and Plan Altered mental status Poss seizures r/o CVA Neurology consulted. Treat PNA. - neuro checks., move patient to the floor for closer obs per neurology Stat CBC, BMP, trops. replace electrolytes per ICU protocol. Trops trending down EEG x2 no evidence of seizure however continue keppra per neurology as patient might have small seizures Recent ECHO 07/09 with EF of 25-30%. Recent carotid US reviewed and no significant stenosis. Cta neck reviewed. CT head reviewed no signs of hemorrhagic stroke. CTA head reviewed no new ischemic changes. Keep normotensive per neuro recommendations. - PT/ OT/ST. Passed swallow evaluation Sepsis/ Hospital-acquired pneumonia CXR with PNA in left lower lobe. The patient required intubation for hypoxic hypercapnic respiratory failure. Successfully extubated. - Continue vancomycin and Zosyn. - incentive spirometry. - oxygen and nebs as needed. - physical therapy. Hypertensive emergency BP better controlled. - Continue hydralazine 50 mg every 8 hours, metoprolol 50 every 12, increased to Cardizem 90 every 6, clonidine 0.3 every 12. - clonidine and hydralazine as needed. - pt not a candidate for MRA or CTA to rule out renal artery stenosis s/t renal function. US not available here. Outpt follow-up recommended. Acute on chronic kidney disease CKD, stage III. Creatinine stable. - remove Coates. - monitor BMP and avoid nephrotoxic agents. Atrial fibrillation Rate controlled. - Continue Eliquis. CHF Patient with recent placement of biventricular pacer. - Careful monitoring of volume status. - continue cardiac regimen. Foot pain On the left. Exam unremarkable. - left foot x ray pending. PPx: Eliquis. Discharge Planning Awaiting clinical improvement. Will need SNF. Intubation/ extubation Transfer to the floor for close neuro monitoring. Discussed with the patient, nurse Improving, plan to DC to SNF, however the patient/ family wants the patient to go home with home health . Discussed with the case management as well. Plan to DC home with home health Problem Qualifiers (1) Altered mental status: Qualified Code: R40.1 - Stupor (2) Pneumonia: Qualified Code: J18.1 - Pneumonia of left lower lobe due to infectious organism (3) Sepsis: Qualified Code: A41.9 - Sepsis, due to unspecified organism (4) Respiratory failure: Qualified Code: J96.01 - Acute respiratory failure with hypoxia and hypercapnia Violet Loya MD Jul 30, 2016 07:46
[2016-07-30 07:47] LABS: HEMO FLAGS AUTO DIFF
[2016-07-30 08:00] LABS: BICARBONATE 27.1 MEQ/L (21.0-32.0); POTASSIUM 3.6 MEQ/L (3.5-5.1)
[2016-07-30 08:42] LABS: BANDS 1 % (0-6); EOSINOPHILS 2 % (0-4); NEUTROPHIL # MANUAL DIFF 2.6 TH/MM3 (1.8-7.7); POLYS (SEG NEUTROPHILS) 72 % (16-70); WBC DIFF SAMPLE 100
[2016-07-30 08:44] LABS: ACANTHOCYTES OCC (NORMAL)
[2016-07-30 08:45] LABS: HELMET CELLS OCC (NORMAL); KERATOCYTES OCC (NORMAL)
[2016-07-30 08:46] LABS: OVALOCYTES 1+ (NORMAL); PLATELET ESTIMATE SMEAR NORMAL (NORMAL); PLATELET MORPHOLOGY ENLARGED (NORMAL); SCAN/DIFF FINAL DIFF MANUAL; TARGET CELLS 1+ (NORMAL)
[2016-07-30] MEDS: APIXABAN 2.5 MG TABLET OG-TUBE SCH (09:02)
[2016-07-30] MEDS: METOPROLOL TARTRATE 50 MG TAB TUBE SCH (09:02)
[2016-07-30] MEDS: cloNIDine HCL 0.3 MG TAB TUBE SCH (09:02)
[2016-07-30] MEDS: SODIUM CHLORIDE 0.9% FLUSH 5 ML FLUSH IV FLUSH SCH (09:02)
[2016-07-30] MEDS: DOCUSATE SODIUM 100 MG CAP TUBE SCH (09:02)
--- NOTE | 2016-07-30 15:20 | HHI.FF ---
Face to Face Verification Diagnosis: (1) Sepsis (2) Acute kidney injury (3) Bradycardia (4) Seizure (5) UTI (urinary tract infection) (6) Kidney injury (7) Elevated troponin (8) Atrial fibrillation with rapid ventricular response (9) NSVT (nonsustained ventricular tachycardia) (10) Biventricular ICD (implantable cardioverter-defibrillator) in place (11) Hypertension (12) Respiratory failure (13) Altered mental status (14) CKD (chronic kidney disease) stage 3, GFR 30-59 ml/min Physical Therapy Order: Evaluate and Treat Home Health Nursing Order: Medical education Signs/symptoms of disease process Medication education-adverse effect Nursing assessment with vital signs I have seen patient Manny Salgado on 07/30/16. My clinical findings support the need for the requested home health care services because: Ltd mobility - disease progression I certify that my clinical findings support that this patient is homebound because: Post-op weakness Violet Loya MD Jul 30, 2016 15:20
[2016-07-30] MEDS ORDERED: VANCOMYCIN INJ 1,250 MG in SODIUM CHLOR 0.9% 250 ML INJ 250 ML IV SCH (18:00)
[2016-08-02] MEDS ORDERED: PHARMACY ORDERED LAB XX ONE (17:45)
== END 2016-07-30 21:19 | disposition home health service (06) | DRG 871 ==
LOC: NEPC 15:50 → NEDH 18:30 → N03B 07-22 00:49 → N07B 07-24 23:50 → N03A 07-27 12:47 → N04B 07-29 21:04
PROVIDERS: ADMIT Hospitalist; ATTEND Hospitalist
PROC: 5A1945Z Respiratory Ventilation, 24-96 Consecutive Hours (ICD-10-PCS; principal; 2016-07-21)
PROC: 0BH17EZ Insertion of Endotracheal Airway into Trachea, Via Natural or Artificial Opening (ICD-10-PCS; 2016-07-21)
PROC: 05H633Z Insertion of Infusion Device into Left Subclavian Vein, Percutaneous Approach (ICD-10-PCS; 2016-07-21)
PROC: 03HY32Z Insertion of Monitoring Device into Upper Artery, Percutaneous Approach (ICD-10-PCS; 2016-07-22)
DX: A41.9 Sepsis, unspecified organism (principal); J18.9 Pneumonia, unspecified organism; G92 Toxic encephalopathy; N17.9 Acute kidney failure, unspecified; I47.2 Ventricular tachycardia; J96.01 Acute respiratory failure with hypoxia; J96.02 Acute respiratory failure with hypercapnia; N18.3 Chronic kidney disease, stage 3 (moderate); E87.3 Alkalosis; I67.4 Hypertensive encephalopathy; E44.0 Moderate protein-calorie malnutrition; I16.1 Hypertensive emergency; I50.22 Chronic systolic (congestive) heart failure; R56.9 Unspecified convulsions; I48.91 Unspecified atrial fibrillation; I16.0 Hypertensive urgency; Y95 Nosocomial condition; R94.6 Abnormal results of thyroid function studies; E78.5 Hyperlipidemia, unspecified; I12.9 Hypertensive chronic kidney disease with stage 1 through stage 4 chronic kidney disease, or unspecified chronic kidney disease; M19.90 Unspecified osteoarthritis, unspecified site; M79.672 Pain in left foot; Z79.01 Long term (current) use of anticoagulants; Z87.440 Personal history of urinary (tract) infections; Z95.810 Presence of automatic (implantable) cardiac defibrillator
CPT/HCPCS: 31500; 36556; 36600; 43753; 51702; 70450; 70496; 70498; 71010; 73630; 74176; 76937; 80048; 80053; 80061; 80202; 80307; 80320; 81001; 82140; 82435; 82550; 82552; 82565; 82607; 82805; 82947; 83605; 83735; 84100; 84132; 84295; 84425; 84439; 84443; 84484; 84520; 85007; 85025; 85027; 85384; 85610; 85652; 85730; 86850; 86900; 86901; 87040; 87070; 87086; 87205; 87449; 87641; 93005; 93880; 94002; 94003; 94150; 94640; 94664; 94667; 94668; 95819; 96365; 96375; C9113; J0330; J0360; J1170; J1940; J1953; J2543; J3370; J3480; J7030; J7040; J7050; J7613; Q9967